=== PATIENT | female | born 1995 | race Caucasian/White ===

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

== ENCOUNTER → 2017-08-27 | Outpatient (CLI) | payer MEDICAID ==
[2017-08-27 20:05] LABS: BASO # 0.1 10^3/uL (0.0-0.2); BASO % 0.5 % (0.0-1.0); EOS # 0.1 10^3/uL (0.0-0.50); EOS % 1.4 % (0.0-3.0); HEMATOCRIT 42.7 % (36.0-47.0); HEMOGLOBIN 14.5 g/dl (12.0-16.0); IMMATURE GRANULOCYTE % 0.2 % (0-3.0); LYMPH # 3.5 10^3/uL (1.5-6.5); LYMPH % 36.4 % (24.0-44.0); MEAN CORPUSCULAR HEMOGLOBIN 31.7 pg (27.0-33.0); MEAN CORPUSCULAR VOLUME 93.4 fl (80.0-96.0); MONO # 0.7 10^3/uL (0.0-0.8); MONO % 7.3 % (0.0-5.0); NEUTROPHILS # 5.2 10^3/uL (1.8-7.7); NEUTROPHILS % 54.2 % (36.0-66.0); PLATELET COUNT, AUTOMATED 249 10^3/uL (150-450); RED BLOOD COUNT 4.57 10^6/uL (4.00-5.40); RED CELL DISTRIBUTION WIDTH 12.2 % (11.5-14.5); WHITE BLOOD COUNT 9.6 10^3/uL (4.0-10.0)
[2017-08-27 20:37] LABS: ALBUMIN 4.2 GM/DL (3.2-5.2); ALBUMIN/GLOBULIN RATIO 1.31 (1.00-1.93); ALKALINE PHOSPHATASE 99 U/L (45-117); ALT/SGPT 19 U/L (12-78); ANION GAP 11 MEQ/L (8-16); AST/SGOT 17 U/L (7-37); BILIRUBIN,TOTAL 0.3 MG/DL (0.2-1.0); BLOOD UREA NITROGEN 8 MG/DL (7-18); CALCIUM LEVEL 9.4 MG/DL (8.5-10.1); CARBON DIOXIDE LEVEL 25 MEQ/L (21-32); CHLORIDE LEVEL 108 MEQ/L (98-107); CREATININE FOR GFR 0.68 MG/DL (0.55-1.30); FREE T4 0.92 NG/DL (0.78-1.33); GLUCOSE, FASTING 75 MG/DL (70-100); POTASSIUM SERUM 3.7 MEQ/L (3.5-5.1); SODIUM LEVEL 144 MEQ/L (136-145); TOTAL PROTEIN 7.4 GM/DL (6.4-8.2)
== END ==
LOC: M WUC 16:27
DX: G40.89 Other seizures (principal); R45.6 Violent behavior; F90.0 Attention-deficit hyperactivity disorder, predominantly inattentive type
CPT/HCPCS: 84443

== ENCOUNTER 2019-08-04 20:23 | Emergency (ER) | payer MEDICAID ==
[~2019-08-04] VITALS: Ht 149.9 cm; Wt 77.3 kg
[2019-08-04] MEDS ORDERED: ZYRTTAB8 PO (20:32)
[2019-08-04] MEDS ORDERED: ONFI20TA PO (20:32)
[2019-08-04] MEDS ORDERED: RISP2TAB32 PO (20:32)
[2019-08-04] MEDS ORDERED: [UNRECOGNIZED DRUG - OTHER] (20:32)
[2019-08-04] MEDS ORDERED: AMET1TAB3 PO (20:32)
[2019-08-04] MEDS ORDERED: METF500T13 PO (20:32)
[2019-08-04] MEDS ORDERED: SEASTAB PO (20:32)
[2019-08-04] MEDS ORDERED: ADDE25CA PO (20:32)
[2019-08-04] MEDS ORDERED: MELA5CAP2 PO (20:32)
[2019-08-04] MEDS ORDERED: MM S100C PO (20:32)
[2019-08-04] MEDS ORDERED: ZOLO25TA PO (20:32)
[2019-08-04 21:02] LABS: URINE PREG TEST NEGATIVE (NEGATIVE)
[2019-08-04 21:04] LABS: APPEARANCE, URINE HAZY (CLEAR); BACTERIA, URINE AUTO 1+ (NEGATIVE); BILIRUBIN, URINE AUTO NEGATIVE (NEGATIVE); BLOOD, URINE BLOOD 2+ (NEGATIVE); COLOR, URINE YELLOW (YELLOW); GLUCOSE, URINE (UA) AUTO NEGATIVE (NEGATIVE); KETONE, URINE AUTO NEGATIVE (NEGATIVE); LEUKOCYTE ESTERASE, URINE AUTO NEGATIVE (NEGATIVE); MUCUS, URINE SMALL (NEGATIVE); NITRITE, URINE AUTO NEGATIVE (NEGATIVE); PROTEIN, URINE AUTO NEGATIVE (NEGATIVE); RBC, URINE AUTO 1 /HPF (0-3); SPECIFIC GRAVITY URINE AUTO 1.017 (1.002-1.035); SQUAMOUS EPITHELIAL CELL UR AU 1 /HPF (0-6); UROBILINOGEN, URINE AUTO 0.2 mg/dL (0.0-2.0); WBC, URINE AUTO 4 /HPF (0-3)
[2019-08-04 21:17] LABS: INFLUENZA A AMPLIFICATION NEGATIVE (NEGATIVE); INFLUENZA B AMPLIFICATION NEGATIVE (NEGATIVE)
[2019-08-04 22:35] LABS: BASO % 0.4 % (0.0-1.0); EOS # 0.2 10^3/uL (0.0-0.5); EOS % 1.9 % (0.0-3.0); HEMATOCRIT 40.3 % (36.0-47.0); HEMOGLOBIN 13.8 g/dl (12.0-15.5); LYMPH # 3.5 10^3/uL (1.5-5.0); LYMPH % 37.6 % (24.0-44.0); MEAN CORPUSCULAR HEMOGLOBIN 31.7 pg (27.0-33.0); MEAN CORPUSCULAR HGB CONC 34.2 g/dl (32.0-36.5); MEAN CORPUSCULAR VOLUME 92.6 fl (80.0-96.0); MONO # 0.7 10^3/uL (0.0-0.8); MONO % 7.3 % (0.0-5.0); NEUTROPHILS # 4.9 10^3/uL (1.5-8.5); NEUTROPHILS % 52.6 % (36.0-66.0); PLATELET COUNT, AUTOMATED 216 10^3/uL (150-450); RED BLOOD COUNT 4.35 10^6/uL (4.00-5.40); WHITE BLOOD COUNT 9.3 10^3/uL (4.0-10.0)
[2019-08-04 23:11] LABS: ALBUMIN 3.8 GM/DL (3.2-5.2); ALT/SGPT 19 U/L (12-78); BILIRUBIN,DIRECT < 0.1 MG/DL (0.0-0.2); BILIRUBIN,TOTAL 0.2 MG/DL (0.2-1.0); LIPASE 118 U/L (73-393); TOTAL PROTEIN 6.9 GM/DL (6.4-8.2)
[2019-08-05 00:04] VITALS: BP 110/66
--- NOTE | 2019-08-05 08:07 | REP ---
Supine abdomen single AP view: There are no comparisons. The bowel gas pattern is normal. There is abundant fecal residue in the ascending colon and transverse colon. There is minimal fecal residue in the descending colon and sigmoid colon. There is a fecal bolus in the rectal ampulla, possibly an impaction. Electronically Signed by Kane Fuentes MD 08/05/2019 07:58 A
== END 2019-08-05 00:06 | disposition home or self-care (01) ==
LOC: M ED 20:23
DX: K59.00 Constipation, unspecified (principal); R14.1 Gas pain; G40.909 Epilepsy, unspecified, not intractable, without status epilepticus; D68.0 Von Willebrand disease; Z79.899 Other long term (current) drug therapy; Z79.84 Long term (current) use of oral hypoglycemic drugs; Z79.3 Long term (current) use of hormonal contraceptives

== ENCOUNTER 2019-08-12 14:42 | Emergency (ER) | payer MEDICAID ==
[~2019-08-12] VITALS: Ht 149.9 cm; Wt 76.8 kg
[~2019-08-12 14:42] MED LIST: ADDE25CA PO; AMET1TAB3 PO; MELA5CAP2 PO; METF500T13 PO; MM S100C PO; ONFI20TA PO; RISP2TAB32 PO; SEASTAB PO; ZOLO25TA PO; ZYRTTAB8 PO; [UNRECOGNIZED DRUG - OTHER]
[2019-08-12] MEDS ORDERED: DIVA250T67 (15:01)
[2019-08-12] MEDS ORDERED: QUET100T2 (15:01)
[2019-08-12] MEDS ORDERED: QUET200T2 (15:01)
[2019-08-12 15:43] LABS: HEMATOCRIT 43.8 % (36.0-47.0); HEMOGLOBIN 14.9 g/dl (12.0-15.5); MEAN CORPUSCULAR HEMOGLOBIN 32.1 pg (27.0-33.0); MEAN CORPUSCULAR VOLUME 94.4 fl (80.0-96.0); PLATELET COUNT, AUTOMATED 226 10^3/uL (150-450); RED BLOOD COUNT 4.64 10^6/uL (4.00-5.40); WHITE BLOOD COUNT 6.9 10^3/uL (4.0-10.0)
[2019-08-12 16:11] LABS: AMPHETAMINES LEVEL URINE POSITIVE (NEGATIVE); BARBITURATES URINE NEGATIVE (NEGATIVE); BENZODIAZEPINES URINE POSITIVE (NEGATIVE); CANNABINOIDS URINE NEGATIVE (NEGATIVE); COCAINE METABOLITE URINE NEGATIVE (NEGATIVE); METHADONE URINE NEGATIVE (NEGATIVE); OPIATES URINE NEGATIVE (NEGATIVE); PHENCYCLIDINE URINE NEGATIVE (NEGATIVE)
[2019-08-12 16:13] LABS: HCG, SERUM QUALITATIVE NEGATIVE (NEGATIVE)
[2019-08-12 16:22] LABS: ACETAMINOPHEN LEVEL < 2.0 UG/ML (10.0-30.0); ALT/SGPT 21 U/L (12-78); BILIRUBIN,DIRECT 0.1 MG/DL (0.0-0.2); BILIRUBIN,TOTAL 0.2 MG/DL (0.2-1.0); BLOOD UREA NITROGEN 13 MG/DL (7-18); CALCIUM LEVEL 9.1 MG/DL (8.5-10.1); CARBON DIOXIDE LEVEL 29 MEQ/L (21-32); CHLORIDE LEVEL 107 MEQ/L (98-107); CREATININE FOR GFR 0.74 MG/DL (0.55-1.30); ETHYL ALCOHOL (ETHANOL) < 0.003 % (0.000-0.010); GLOMERULAR FILTRATION RATE > 60.0 (>60); GLUCOSE, FASTING 85 MG/DL (70-100); SALICYLATE LEVEL < 1.7 MG/DL (5.0-30.0); SODIUM LEVEL 143 MEQ/L (136-145); THYROID STIMULATING HORMONE 0.966 uIU/ML (0.358-3.740); TOTAL PROTEIN 7.2 GM/DL (6.4-8.2)
[2019-08-12 17:55] VITALS: BP 118/71
== END 2019-08-12 17:56 | disposition home or self-care (01) ==
LOC: M ED 14:42
DX: F91.9 Conduct disorder, unspecified (principal); G40.909 Epilepsy, unspecified, not intractable, without status epilepticus; F91.3 Oppositional defiant disorder; F90.9 Attention-deficit hyperactivity disorder, unspecified type; D68.0 Von Willebrand disease; Z79.84 Long term (current) use of oral hypoglycemic drugs; Z79.899 Other long term (current) drug therapy
CPT/HCPCS: 36415; 80048; 80076; 80307; 84443; 84703; 85027; 99284; G0480

== ENCOUNTER 2020-07-20 15:33 | Emergency (ER) | payer MEDICAID ==
[~2020-07-20] VITALS: Ht 152.4 cm; Wt 73.6 kg
[~2020-07-20 15:33] MED LIST changes: +DIVA250T67; +QUET100T2; +QUET200T2
--- OUTSIDE RECORDS SUMMARY | 2020-07-20 16:39 | CCD ---
Author Author [facility] Organization [facility] Address Unknown Phone Unavailable Care Team Providers Care [place] Mason Name Role Phone Barraclough, Ava PA Unavailable Unavailable Barraclough, Ava PA Unavailable Unavailable Barraclough, Ava PA Unavailable Unavailable Barraclough, Ava PA Unavailable Unavailable Barraclough, Ava PA Unavailable Unavailable Barraclough, Ava PA Unavailable Unavailable Alejandro DOAN MD Unavailable Unavailable Alejandro DOAN MD Unavailable Unavailable Alejandro DOAN MD Unavailable Unavailable Alejandro DOAN MD Unavailable Unavailable Alejandro DOAN MD Unavailable Unavailable Alejandro DOAN MD Unavailable Unavailable Alejandro DOAN MD Unavailable Unavailable Alejandro DOAN MD Unavailable Unavailable Alejandro DOAN MD Unavailable Unavailable Alejandro DOAN MD Unavailable Unavailable Alejandro DOAN MD Unavailable Unavailable Alejandro DOAN MD Unavailable Unavailable Alejandro DOAN MD Unavailable Unavailable Alejandro DOAN MD Unavailable Unavailable Alejandro DOAN MD Unavailable Unavailable Alejandro DOAN MD Unavailable Unavailable Alejandro DOAN MD Unavailable Unavailable Alejandro DOAN MD Unavailable Unavailable Alejandro DOAN MD Unavailable Unavailable Alejandro DOAN MD Unavailable Unavailable Alejandro DOAN MD Unavailable Unavailable Alejandro DOAN MD Unavailable Unavailable Alejandro DOAN MD Unavailable Unavailable Alejandro DOAN MD Unavailable Unavailable Alejandro DOAN MD Unavailable Unavailable Alejandro DOAN MD Unavailable Unavailable OLIMPIA, H SHASTA MD Unavailable Unavailable OLIMPIA, H SHASTA MD Unavailable Unavailable OLIMPIA, H SHASTA MD Unavailable Unavailable OLIMPIA, H SHASTA MD Unavailable Unavailable OLIMPIA, H SHASTA MD Unavailable Unavailable OLIMPIA, H SHASTA MD Unavailable Unavailable OLIMPIA, H SHASTA MD Unavailable Unavailable OLIMPIA, H SHASTA MD Unavailable Unavailable OLIMPIA, H SHASTA MD Unavailable Unavailable OLIMPIA, H SHASTA MD Unavailable Unavailable OLIMPIA, H SHASTA MD Unavailable Unavailable OLIMPIA, H SHASTA MD Unavailable Unavailable OLIMPIA, H SHASTA MD Unavailable Unavailable OLIMPIA, H SHASTA MD Unavailable Unavailable OLIMPIA, H SHASTA MD Unavailable Unavailable OLIMPIA, H SHASTA MD Unavailable Unavailable OLIMPIA, H SHASTA MD Unavailable Unavailable OLIMPIA, H SHASTA MD Unavailable Unavailable OLIMPIA, H SHASTA MD Unavailable Unavailable OLIMPIA, H SHASTA MD Unavailable Unavailable OLIMPIA, H SHASTA MD Unavailable Unavailable OLIMPIA, H SHASTA MD Unavailable Unavailable OLIMPIA, H SHASTA MD Unavailable Unavailable OLIMPIA, H SHASTA MD Unavailable Unavailable OLIMPIA, H SHASTA MD Unavailable Unavailable OLIMPIA, H SHASTA MD Unavailable Unavailable OLIMPIA, H SHASTA MD Unavailable Unavailable OLIMPIA, H SHASTA MD Unavailable Unavailable OLIMPIA, H SHASTA MD Unavailable Unavailable OLIMPIA, H SHASTA MD Unavailable Unavailable OLIMPIA, H SHASTA MD Unavailable Unavailable OLIMPIA, H SHASTA MD Unavailable Unavailable OLIMPIA, H SHASTA MD Unavailable Unavailable OLIMPIA, H SHASTA MD Unavailable Unavailable OLIMPIA, H SHASTA MD Unavailable Unavailable OLIMPIA, H SHASTA MD Unavailable Unavailable OLIMPIA, H SHASTA MD Unavailable Unavailable OLIMPIA, H SHASTA MD Unavailable Unavailable OLIMPIA, H SHASTA MD Unavailable Unavailable OLIMPIA, H SHASTA MD Unavailable Unavailable OLIMPIA, H SHASTA MD Unavailable Unavailable OLIMPIA, H SHASTA MD Unavailable Unavailable OLIMPIA, H HSASTA MD Unavailable Unavailable OLIMPIA, H SHASTA MD Unavailable Unavailable OLIMPIA, H SHASTA MD Unavailable Unavailable OLIMPIA, H SHASTA MD Unavailable Unavailable OLIMPIA, H SHASTA MD Unavailable Unavailable OLIMPIA, H SHASTA MD Unavailable Unavailable OLIMPIA, H SHASTA MD Unavailable Unavailable OLIMPIA, H SHASTA MD Unavailable Unavailable Dodard, Steve DO Unavailable Unavailable Dodard, Steve DO Unavailable Unavailable Dodard, Steve DO Unavailable Unavailable Dodard, Steve DO Unavailable Unavailable Dodard, Steve DO Unavailable Unavailable Dodard, Steve DO Unavailable Unavailable Dodard, Steve DO Unavailable Unavailable Dodard, Steve DO Unavailable Unavailable Dodard, Steve DO Unavailable Unavailable Dodard, Steve DO Unavailable Unavailable Dodard, Steve DO Unavailable Unavailable Dodard, Steve DO Unavailable Unavailable Dodard, Steve DO Unavailable Unavailable Dodard, Steve DO Unavailable Unavailable Dodard, Steve DO Unavailable Unavailable Dodard, Steve DO Unavailable Unavailable Dodard, Steve DO Unavailable Unavailable Dodard, Steve DO Unavailable Unavailable Dodard, Steve DO Unavailable Unavailable Dodard, Steve DO Unavailable Unavailable Dodard, Steve DO Unavailable Unavailable Dodard, Steve DO Unavailable Unavailable Dodard, Steve DO Unavailable Unavailable Dodard, Steve DO Unavailable Unavailable Dodard, Steve DO Unavailable Unavailable Dodard, Steve DO Unavailable Unavailable Dodard, Steve DO Unavailable Unavailable Dodard, Steve DO Unavailable Unavailable Dodard, Steve DO Unavailable Unavailable Dodard, Steve DO Unavailable Unavailable Dodard, Steve DO Unavailable Unavailable Dodard, Steve DO Unavailable Unavailable Dodard, Steve DO Unavailable Unavailable Dodard, Steve DO Unavailable Unavailable Dodard, Steve DO Unavailable Unavailable Dodard, Steve DO Unavailable Unavailable Dodard, Steve DO Unavailable Unavailable Dodard, Steve DO Unavailable Unavailable Dodard, Steve DO Unavailable Unavailable Dodard, Steve DO Unavailable Unavailable Dodard, Steve DO Unavailable Unavailable Dodard, Steve DO Unavailable Unavailable Dodard, Steve DO Unavailable Unavailable Dodard, Steve DO Unavailable Unavailable Re-disclosure Warning The records that you are about to access may contain information from federally-assisted alcohol or drug abuse programs. If such information is present, then the following federally mandated warning applies: This information has been disclosed to you from records protected by federal confidentiality rules (42 CFR part 2). The federal rules prohibit you from making any further disclosure of this information unless further disclosure is expressly permitted by the written consent of the person to whom it pertains or as otherwise permitted by 42 CFR part 2. A general authorization for the release of medical or other information is NOT sufficient for this purpose. The Federal rules restrict any use of the information to criminally investigate or prosecute any alcohol or drug abuse patient.The records that you are about to access may contain highly sensitive health information, the redisclosure of which is protected by Article 27-F of the [facility] Public Health law. If you continue you may have access to information: Regarding HIV / AIDS; Provided by facilities licensed or operated by the [facility] Office of Mental Health; or Provided by the [facility] Office for People With Developmental Disabilities. If such information is present, then the following [facility] mandated warning applies: This information has been disclosed to you from confidential records which are protected by state law. State law prohibits you from making any further disclosure of this information without the specific written consent of the person to whom it pertains, or as otherwise permitted by law. Any unauthorized further disclosure in violation of state law may result in a fine or correction sentence or both. A general authorization for the release of medical or other information is NOT sufficient authorization for further disc losure. Family History Family Member Name Family Member Gender Family Member Status Date o f Status Description Data Source(s) Unknown Unknown Problem [facility] ([facility] [place]) Encounters Encounter Providers Location Date Indications Data Source(s ) Outpatient Attender: SHASTA DOAN MD [facility] 03:20:00 PM EDT [facility] Outpatient Attender: SHASTA DOAN MD [facility] 01:15:00 PM EDT [facility] ([facility] Outpatient Referrer: Steve Lucio DO 08/11/2019 03:39:00 PM EST [facility] Outpatient Attender: Ava SILVER [facility] 06/17/2019 01:40:00 PM EST [facility] ([facility] Medications Medication Brand Name Start Date Product Form Dose Route Admi nistrative Instructions Pharmacy Instructions Status Indications Reaction Description Data Source(s) benzonatate 100 MG Oral Capsule [Tessalbro Ricks] Kristinsalon P lisandro 06/17/2019 12:00:00 AM EST completed [facility] ([facility] Insurance Providers Payer name Policy type / Coverage type Policy ID Covered libertarian ID Covered libertarian's relationship to dozier Policy Dozier Plan Information EMEDNY [id number] SP [id number] MEDICAID [id number] SP [id number] MEDICAID M [id number] S [id number] Medicaid Medicaid [id number] Self [id number] Medicaid Medicaid [id number] Self [id number] Medicaid-Pcap Medicaid [id number] Family Dependent [id number] Medicaid-Pcap Medicaid [id number] Family Dependent [id number] Medicaid-Pcap Medicaid [id number] Family Dependent [id number] Medicaid Medicaid [id number] Self [id number] Medicaid Medicaid [id number] Self [id number] Medicaid-Pcap Medicaid [id number] Family Dependent [id number] Medicaid-Pcap Medicaid [id number] Family Dependent Susana E End res [id number] Medicaid-Pcap Medicaid Family Dependent MEDICAID [id number] SP [id number] Medicaid Medicaid Self [id number] Results ID Date Data Source [id number] 08/12/2019 03:24:00 PM EST [facility] ([facility] Name Value Range Interpretation Code Description Data Magdalena rce(s) Supporting Document(s) Salicylates [Mass/volume] in Serum or Plasma < 1.7 mg/dL 5.0 -30.0 Below low normal [facility] ([facility] ) Acetaminophen [Mass/volume] in Serum or Plasma < 2.0 UG/ML 1 0.0-30.0 Below low normal [facility] ([facility] ) Ethanol [Mass/volume] in Serum or Plasma < 0.003 % 0.000-0 .010 Normal (applies to non-numeric results) [facility] ([facility] Thyrotropin [Units/volume] in Serum or Plasma 0.966 uIU/ML 0. 358-3.740 Normal (applies to non-numeric results) [facility] Choriogonadotropin.beta subunit ( test) [Pres ence] in Serum or Plasma NEGATIVE Normal (applies to non-numeric results) [facility] ID Date Data Source [id number] 08/12/2019 03:24:00 PM EST [facility] ([facility] Name Value Range Interpretation Code Description Data Magdalena rce(s) Supporting Document(s) Glucose, Fasting 85 mg/dL 70-100 Normal (applies to non-numeric results) [facility] ([facility] Blood Urea Nitrogen 13 mg/dL 7-18 Normal (applies to non-nume stefani results) [facility] ([facility] Glomerular Filtration Rate > 60.0 Normal (applies to n on-numeric results) [facility] ([facility] <content>Units are mL/min/1.73 m2</content>
<content></content>
<content>Chronic Kidney Disease Staging per NKF:</content>
<content></content>
<content>Stage I & II GFR >=60 Normal to Mildly Decreased</content>
<content>Stage III GFR 30- 59 Moderately Decreased</content>
<content>Stage IV GFR 15-29 Severely Decreased</content>
<content>Stage V GFR <15 Very Little GFR Left</content>
<content>ESRD GFR <15 on HEALTH ASSESSMENT AND TREATMENT TEACHER</content>
<content></content> Creatinine For GFR 0.74 mg/dL 0.55-1.30 Normal (applies to non -numeric results) [facility] ([facility] Sodium Level 143 meq/L 136-145 Normal (applies to non-numeric res ults) [facility] ([facility] Potassium Serum 4.0 meq/L 3.5-5.1 Normal (applies to non-numeric results) [facility] Chloride Level 107 meq/L 98-107 Normal (applies to non-numeric r esults) [facility] ([facility] Carbon Dioxide Level 29 meq/L 21-32 Normal (applies to non-num mike results) [facility] Anion Gap 7 meq/L 8-16 Below low normal [facility] Calcium Level 9.1 mg/dL 8.5-10.1 Normal (applies to non-numeric re sults) [facility] ([facility] ID Date Data Source [id number] 08/12/2019 03:24:00 PM EST [facility] ([facility] Name Value Range Interpretation Code Description Data Magdalena rce(s) Supporting Document(s) Alt/SGPT 21 U/L 12-78 Normal (applies to non-numeric resul ts) [facility] ([facility] Ast/Sgot 12 U/L 7-37 Normal (applies to non-numeric resul ts) [facility] ([facility] Alkaline Phosphatase 75 U/L 45-117 Normal (applies to non-num mike results) [facility] ([facility] Bilirubin,Total 0.2 mg/dL 0.2-1.0 Normal (applies to non-numeric results) [facility] ([facility] Total Protein 7.2 GM/DL 6.4-8.2 Normal (applies to non-numeric re sults) [facility] ([facility] Bilirubin,Direct 0.1 mg/dL 0.0-0.2 Normal (applies to non-numeric results) [facility] ([facility] Albumin 4.0 GM/DL 3.2-5.2 Normal (applies to non-numeric resul ts) [facility] ([facility] Albumin/Globulin Ratio 1.25 1.00-1.93 Normal (applies to non-numeric results) [facility] ([facility] [place] ID Date Data Source [id number] 08/12/2019 03:24:00 PM EST [facility] ([facility] Name Value Range Interpretation Code Description Data Magdalena rce(s) Supporting Document(s) Amphetamines Level Urine POSITIVE Above high normal [facility] ([facility] Barbiturates Urine NEGATIVE Normal (applies to non-numer ic results) [facility] ([facility] Benzodiazepines Urine POSITIVE Above high normal [facility] ([facility] Cocaine Metabolite Urine NEGATIVE Normal (applies to non -numeric results) [facility] ([facility] Cannabinoids Urine NEGATIVE Normal (applies to non-numer ic results) [facility] ([facility] [place] Methadone Urine NEGATIVE Normal (applies to non-numeric results) [facility] ([facility] Opiates Urine NEGATIVE Normal (applies to non-numeric re sults) [facility] ([facility] Phencyclidine Urine NEGATIVE Normal (applies to non-nume stefani results) [facility] ([facility] [place] ALL PRESUMPTIVE POSITIVE FINDINGS AR E UNCONFIRMED THRESHOLD IN NG/ML AMPHETAMINES/METHAMPHET 1000 BARBITURATES 200 BENZODIAZEPINES 200 CANNABINOIDS (THC) 50 COCAINE METABOLITE 300 METHADONE 300 OPIATES 300 PHENCYCLIDINE 25 RESULTS ARE FOR MEDICAL PURPOSES ONLY. ALL URINE SPECIMENS WILL BE SAVED FOR 3 DAYS. IF CONFIRMATION OF A PRESUMPTIVE POSITIVE SCREEN RESULT IS DESIRED, CALL CHEMISTRY ([phone]) AND REQUEST URINE TO BE SENT TO REFERENCE LAB. FOR A LIST OF CLOSELY RELATED COMPOUNDS PLEASE CALL THE LAB. ID Date Data Source [id number] 08/12/2019 03:24:00 PM EST [facility] Name Value Range Interpretation Code Description Data Magdalena rce(s) Supporting Document(s) White Blood Count 6.9 10 4.0-10.0 Normal (applies to non-numeri c results) [facility] ([facility] Hemoglobin 14.9 g/dL 12.0-15.5 Normal (applies to non-numeric resul ts) [facility] ([facility] Red Blood Count 4.64 10 4.00-5.40 Normal (applies to non-numeric results) [facility] ([facility] Mean Corpuscular Volume 94.4 fl 80.0-96.0 Normal ( applies to non-numeric results) [facility] ([facility] Hematocrit 43.8 % 36.0-47.0 Normal (applies to non-numeric resul ts) [facility] ([facility] Mean Corpuscular Hemoglobin 32.1 pg 27.0-33.0 Norm al (applies to non-numeric results) [facility] ([facility] Red Cell Distribution Width 11.9 % 11.5-14.5 Norm al (applies to non-numeric results) [facility] ([facility] Mean Corpuscular HGB Conc 34.0 g/dL 32.0-36.5 Normal (applies to non-numeric results) [facility] ([facility] Nucleated Red Blood Cell % 0.0 % 0-0 Normal (applies to n on-numeric results) [facility] ([facility] Platelet Count, Automated 226 10 150-450 Normal (applies to non-numeric results) [facility] ([facility] ID Date Data Source [id number] 08/04/2019 10:30:00 PM EST [facility] Name Value Range Interpretation Code Description Data Magdalena rce(s) Supporting Document(s) Laboratory test finding (navigational concept) < 5.0 Normal (applies to non- numeric results) [facility] ([facility] [place] <content>QUANTITATIVE RESULT QU ALITATIVE INTERPRETATION</content>
<content> </content>
<content><5.0 IU/L NEGATIVE</content>
<content>5.0 - 25.0 IU/L INDETERMINATE</content>
<content>>25.0 IU/L POSITIVE</content>
<content></content> ID Date Data Source [id number] 08/04/2019 10:28:00 PM EST [facility] ([facility] Name Value Range Interpretation Code Description Data Magdalena rce(s) Supporting Document(s) Laboratory test finding (navigational concept) 98 mg/dL 7 0-105 Normal (applies to non-numeric results) [facility] ([facility] Laboratory test finding (navigational concept) 40.0 % 3 8.0-51.0 Normal (applies to non-numeric results) [facility] ([facility] Laboratory test finding (navigational concept) 139 meq/L 1 36-145 Normal (applies to non-numeric results) [facility] ([facility] [place] Laboratory test finding (navigational concept) 103 meq/L 9 8-109 Normal (applies to non-numeric results) [facility] ([facility] Laboratory test finding (navigational concept) 4.8 mg/dL 4 .5-5.3 Normal (applies to non-numeric results) [facility] ([facility] Laboratory test finding (navigational concept) 3.6 meq/L 3 .5-5.1 Normal (applies to non-numeric results) [facility] ([facility] Laboratory test finding (navigational concept) 26.0 MM/L 2 3.0-27.0 Normal (applies to non-numeric results) [facility] ([facility] Laboratory test finding (navigational concept) 0.5 mg/dL 0 .6-1.3 Below low normal [facility] ([facility] Laboratory test finding (navigational concept) 9 mg/dL 8 -26 Normal (applies to non-numeric results) [facility] ([facility]) ID Date Data Source [id number] 08/04/2019 10:27:00 PM EST [facility] ([facility] Name Value Range Interpretation Code Description Data Magdalena rce(s) Supporting Document(s) Lipoprotein lipase [Enzymatic activity/volume] in Serum or P lasma 118 U/L 73-393 Normal (applies to non-numeric results) [facility] ([facility] ID Date Data Source [id number] 08/04/2019 10:27:00 PM EST [facility] ([facility] Name Value Range Interpretation Code Description Data Magdalena rce(s) Supporting Document(s) Alt/SGPT 19 U/L 12-78 Normal (applies to non-numeric resul ts) [facility] ([facility] Ast/Sgot 14 U/L 7-37 Normal (applies to non-numeric resul ts) [facility] ([facility] Alkaline Phosphatase 75 U/L 45-117 Normal (applies to non-num mike results) [facility] ([facility] Bilirubin,Total 0.2 mg/dL 0.2-1.0 Normal (applies to non-numeric results) [facility] ([facility] Bilirubin,Direct < 0.1 mg/dL 0.0-0.2 Normal (applies to non-numeri c results) [facility] ([facility] Total Protein 6.9 GM/DL 6.4-8.2 Normal (applies to non-numeric re sults) [facility] ([facility] Albumin 3.8 GM/DL 3.2-5.2 Normal (applies to non-numeric resul ts) [facility] ([facility] Albumin/Globulin Ratio 1.23 1.00-1.93 Normal (applies to non-numeric results) [facility] ([facility] ID Date Data Source [id number] 08/04/2019 10:27:00 PM EST [facility] ([facility] Name Value Range Interpretation Code Description Data Magdalena rce(s) Supporting Document(s) White Blood Count 9.3 10 4.0-10.0 Normal (applies to non-numeri c results) [facility] ([facility] Red Blood Count 4.35 10 4.00-5.40 Normal (applies to non-numeric results) [facility] ([facility] Mean Corpuscular Volume 92.6 fl 80.0-96.0 Normal ( applies to non-numeric results) [facility] ([facility] Hemoglobin 13.8 g/dL 12.0-15.5 Normal (applies to non-numeric resul ts) [facility] ([facility] Hematocrit 40.3 % 36.0-47.0 Normal (applies to non-numeric resul ts) [facility] ([facility] Red Cell Distribution Width 11.9 % 11.5-14.5 Norm al (applies to non-numeric results) [facility] ([facility] Mean Corpuscular HGB Conc 34.2 g/dL 32.0-36.5 Normal (applies to non-numeric results) [facility] ([facility] Mean Corpuscular Hemoglobin 31.7 pg 27.0-33.0 Norm al (applies to non-numeric results) [facility] ([facility] Neutrophils % 52.6 % 36.0-66.0 Normal (applies to non-numeric re sults) [facility] ([facility] Platelet Count, Automated 216 10 150-450 Normal (applies to non-numeric results) [facility] ([facility] Lymph % 37.6 % 24.0-44.0 Normal (applies to non-numeric resul ts) [facility] ([facility] Eos % 1.9 % 0.0-3.0 Normal (applies to non-numeric resul ts) [facility] ([facility] Foster % 7.3 % 0.0-5.0 Above high normal [facility] ([facility] Baso % 0.4 % 0.0-1.0 Normal (applies to non-numeric resul ts) [facility] ([facility] Immature Granulocyte % 0.2 % 0-3.0 Normal (applies to non-n umeric results) [facility] ([facility] Neutrophils # 4.9 10 1.5-8.5 Normal (applies to non-numeric re sults) [facility] ([facility] Lymph # 3.5 10 1.5-5.0 Normal (applies to non-numeric resul ts) [facility] ([facility] Nucleated Red Blood Cell % 0.0 % 0-0 Normal (applies to n on-numeric results) [facility] ([facility] Foster # 0.7 10 0.0-0.8 Normal (applies to non-numeric resul ts) [facility] ([facility] Eos # 0.2 10 0.0-0.5 Normal (applies to non-numeric resul ts) [facility] ([facility] Baso # 0.0 10 0.0-0.2 Normal (applies to non-numeric resul ts) [facility] ([facility] ID Date Data Source [id number] 08/04/2019 08:41:00 PM EST [facility] ([facility] Name Value Range Interpretation Code Description Data Magdalena rce(s) Supporting Document(s) Appearance, Urine HAZY Normal (applies to non-numeri c results) [facility] ([facility] Color, Urine YELLOW Normal (applies to non-numeric res ults) [facility] ([facility] Specific [place] Urine Auto 1.017 1.002-1.035 Norm al (applies to non-numeric results) [facility] ([facility] PH,Urine 6.0 units 5.0-9.0 Normal (applies to non-numeric resul ts) [facility] ([facility] Protein, Urine Auto NEGATIVE mg/dL Normal (applies to non- numeric results) [facility] ([facility] Glucose, Urine (Ua) Auto NEGATIVE mg/dL Normal (applies to non-numeric results) [facility] ([facility] Ketone, Urine Auto NEGATIVE mg/dL Normal (applies to non-n umeric results) [facility] ([facility] Urobilinogen, Urine Auto 0.2 mg/dL 0.0-2.0 Normal (applies to non-numeric results) [facility] ([facility] Bilirubin, Urine Auto NEGATIVE Normal (applies to non-nu meric results) [facility] ([facility] Leukocyte Esterase, Urine Auto NEGATIVE N ormal (applies to non-numeric results) [facility] ([facility] ) Nitrite, Urine Auto NEGATIVE Normal (applies to non-nume stefani results) [facility] ([facility] Blood, Urine Blood 2+ Above high normal [facility] ([facility] RBC, Urine Auto 1 /HPF 0-3 Normal (applies to non-numeric results) [facility] ([facility] WBC, Urine Auto 4 /HPF 0-3 Above high normal ME DENT ([facility] Bacteria, Urine Auto 1+ Above high normal [facility] ([facility] Squamous Epithelial Cell Ur AU 1 /HPF 0-6 N ormal (applies to non-numeric results) [facility] ([facility] ) Mucus, Urine SMALL Normal (applies to non-numeric res ults) [facility] ([facility] Hyaline Cast, Urine Auto 0 /LPF 0-1 Normal (applies to non -numeric results) [facility] ([facility] ID Date Data Source [id number] 08/04/2019 08:41:00 PM EST [facility] ([facility] Name Value Range Interpretation Code Description Data Magdalena rce(s) Supporting Document(s) Choriogonadotropin.beta subunit ( test) [Presence] in U rine NEGATIVE Normal (applies to non-numeric results) [facility] ([facility] ID Date Data Source [id number] 08/04/2019 08:36:00 PM EST [facility] ([facility] Name Value Range Interpretation Code Description Data Magdalena rce(s) Supporting Document(s) Influenza A Amplification NEGATIVE Normal (applies to no n-numeric results) [facility] ([facility] Negative results do not preclude influen za or RSV virus infection and should not be used as the sole basis for treatment or other patient management decisions. Influenza B Amplification NEGATIVE Normal (applies to no n-numeric results) [facility] ([facility] Negative results do not preclude influen za or RSV virus infection and should not be used as the sole basis for treatment or other patient management decisions. ID Date Data Source [id number] 06/17/2019 03:45:00 PM EST [facility] ([facility] Name Value Range Interpretation Code Description Data Magdalena rce(s) Supporting Document(s) Erythrocytes [#/volume] in Blood by Automated count 4.45 x10E6/uL 3.7 7-5.28 [facility] ([facility] Leukocytes [#/volume] in Blood by Automated count 8.1 x10E3/uL 3.4-10 .8 [facility] ([facility] Hemoglobin [Mass/volume] in Blood 14.2 g/dL 11.1-15.9 [facility] ([facility] Erythrocyte mean corpuscular volume [Entitic volume] by Auto mated count 94 fL 79-97 [facility] ([facility] Erythrocyte mean corpuscular hemoglobin [Entitic mass] by Automated count 31.9 pg 26.6-33.0 [facility] ([facility] Hematocrit [Volume Fraction] of Blood by Automated count 41.7 % 3 4.0-46.6 [facility] ([facility] Erythrocyte distribution width [Ratio] by Automated count 12.6 % 11.7-15.4 [facility] ([facility] Please note reference interval change* * Erythrocyte mean corpuscular hemoglobin concentration [Mass/volume] by Automated count 34.1 g/dL 31.5-35.7 [facility] ([facility] Neutrophils 64 % [facility] Platelets [#/volume] in Blood by Automated count 221 x10E3/uL 150-450 [facility] ([facility] Monocytes/100 leukocytes in Blood by Automated count 9 % [facility] ([facility] Lymphs 25 % [facility] ([facility] Eosinophils/100 leukocytes in Blood by Automated count 2 % [facility] ([facility] Basophils/100 leukocytes in Blood by Automated count 0 % [facility] ([facility] Neutrophils [#/volume] in Blood by Automated count 5.1 x10E3/uL 1.4-7 .0 [facility] ([facility] Immature cells [#/volume] in Blood TNP [facility] ([facility] Eosinophils [#/volume] in Blood by Automated count 0.2 x10E3/uL 0.0-0 .4 [facility] ([facility] Lymphocytes [#/volume] in Blood 2.0 x10E3/uL 0.7-3.1 [facility] ([facility] Monocytes [#/volume] in Blood 0.8 x10E3/uL 0.1-0.9 [facility] ([facility] Basophils [#/volume] in Blood by Automated count 0.0 x10E3/uL 0.0-0.2 [facility] ([facility] Immature granulocytes/100 leukocytes in Blood by Automated count 0 % [facility] ([facility] Morphology [Interpretation] in Blood Narrative TNP [facility] ([facility] Immature granulocytes [#/volume] in Blood by Automated count 0.0 x10E3/uL 0.0-0.1 [facility] ([facility] Nucleated erythrocytes/100 leukocytes [Ratio] in Blood by Automa boogie count TNP [facility] ([facility] ) Procedure Vital Signs ID Date Data Source [id number] Name Value Range Interpretation Code Description Data Source(s) Oxygen saturation in Arterial blood by Pulse oximetry 97 % 97 % [facility] ([facility] Body mass index (BMI) [Ratio] 31.8 kg/m2 31.8 k g/m2 [facility] ([facility] [place] body weight 100 [lb_av] 100 [lb_av] MEDEN T ([facility] Body weight 160.00 [lb_av] 160.00 [lb_av] MEDEN T ([facility] Body height 59.50 [in_i] 59.50 [in_i] [facility] ([facility] 4'11.50" Respiratory rate 16 /min 16 /min [facility] ( [facility] Heart rate 90 /min 90 /min [facility] ([facility] Body temperature 98.6 [degF] 98.6 [degF] [facility] ([facility] Diastolic blood pressure 66 mm[Hg] 66 mm[Hg] [facility] ([facility] Systolic blood pressure 108 mm[Hg] 108 mm[Hg] M EDENT ([facility] Oxygen saturation in Arterial blood by Pulse oximetry 98 % 98 % [facility] ([facility] Body mass index (BMI) [Ratio] 32.8 kg/m2 32.8 k g/m2 [facility] ([facility] [place] body weight 100 [lb_av] 100 [lb_av] MEDEN T ([facility] Body weight 165.00 [lb_av] 165.00 [lb_av] MEDEN T ([facility] Body height 59.50 [in_i] 59.50 [in_i] [facility] ([facility] 4'11.50" Respiratory rate 14 /min 14 /min [facility] ( [facility] Heart rate 112 /min 112 /min [facility] ([facility] Body temperature 98.4 [degF] 98.4 [degF] [facility] ([facility] Diastolic blood pressure 54 mm[Hg] 54 mm[Hg] [facility] ([facility] Systolic blood pressure 102 mm[Hg] 102 mm[Hg] M EDENT ([facility] Body temperature 98.7 [degF] 98.7 [degF] MEDSAMANTHA ([facility] Diastolic blood pressure 56 mm[Hg] 56 mm[Hg] MEDSAMANTHA ([facility] Systolic blood pressure 98 mm[Hg] 98 mm[Hg] M KAYE ([facility] Oxygen saturation in Arterial blood by Pulse oximetry 97 % 97 % NILES ([facility] Body mass index (BMI) [Ratio] 33.6 kg/m2 33.6 k g/m2 [facility] ([facility] Body weight 169.00 [lb_av] 169.00 [lb_av] ALEXEN T ([facility] Body height 59.50 [in_i] 59.50 [in_i] MEDSAMANTHA ([facility] 4'11.50" Respiratory rate 16 /min 16 /min MEDSAMANTHA ( [facility] Heart rate 100 /min 100 /min NILES ([facility]
--- OUTSIDE RECORDS SUMMARY | 2020-07-20 16:46 | CCD ---
Author Author [facility] Organization [facility] Address Unknown Phone Unavailable Care Team Providers Care Screw Machine Hand Name Role Phone Barraclough, Ava PA Unavailable [...] H SHASTA MD Unavailable Unavailable OLIMPIA, H SHASAT MD Unavailable Unavailable OLIMPIA, H SHASTA MD [...] is protected by Article 27-F of the [facility] Public Health law. If you continue you may have access to information: Regarding HIV / AIDS; Provided by facilities licensed or operated by the [facility] Office of Mental Health; or Provided by the [facility] Office for People With Developmental Disabilities. If such information is present, then the following [facility] mandated warning applies: This information has been [...] law may result in a fine or longterm sentence or both. A general authorization for the release of medical or other information is NOT sufficient authorization for further disc losure. Family History Family Member Name Family Member Gender Family Member Status Date o f Status Description Data Source(s) Unknown Unknown Problem [facility] ([facility]) Encounters Encounter Providers Location Date Indications Data Source(s ) Outpatient Attender: SHASTA DOAN MD [facility] 03:20:00 PM EDT [facility] Outpatient Attender: SHASTA DOAN MD [facility] 01:15:00 PM EDT [facility] ([facility] Outpatient Referrer: Steve Lucio DO 08/11/2019 03:39:00 PM EST [facility] Outpatient Attender: Ava SILVER [facility] 06/17/2019 01:40:00 PM EST [facility] ([facility] Medications Medication Brand Name Start Date Product Form Dose Route Admi nistrative Instructions Pharmacy Instructions Status Indications Reaction Description Data Source(s) benzonatate 100 MG Oral Capsule [Tessalbro Ricks] Kristinsalon P lisandro 06/17/2019 12:00:00 AM EST completed [facility] ([facility] Insurance Providers Payer name Policy type / Coverage type Policy ID Covered libertarian ID Covered libertarian's relationship to dozier Policy Dozier Plan Information EMEDNY [id number] SP [id number] MEDICAID [id number] SP [id number] MEDICAID M [id number] S [id number] Medicaid Medicaid [id number] Self [id number] Medicaid Medicaid [id number] Self [id number] Medicaid-Pcap Medicaid [id number] Family Dependent [id number] Medicaid-Pcap Medicaid [id number] Family Dependent [id number] Medicaid-Pcap Medicaid [id number] Family Dependent [id number] Medicaid Medicaid [id number] Self [id number] Medicaid Medicaid [id number] Self [id number] Medicaid-Pcap Medicaid [id number] Family Dependent [id number] Medicaid-Pcap Medicaid [id number] Family Dependent Susana E End res [id number] Medicaid-Pcap Medicaid Family Dependent MEDICAID [id number] SP [id number] Medicaid Medicaid Self [id number] Results ID Date Data Source [id number] 08/12/2019 03:24:00 PM EST [facility] ([facility] Name Value Range Interpretation Code Description Data Magdalena rce(s) Supporting Document(s) Salicylates [Mass/volume] in Serum or Plasma < 1.7 mg/dL 5.0 -30.0 Below low normal [facility] ([facility] ) Acetaminophen [Mass/volume] in Serum or Plasma < 2.0 UG/ML 1 0.0-30.0 Below low normal [facility] ([facility] ) Ethanol [Mass/volume] in Serum or Plasma < 0.003 % 0.000-0 .010 Normal (applies to non-numeric results) [facility] ([facility] Thyrotropin [Units/volume] in Serum or Plasma 0.966 uIU/ML 0. 358-3.740 Normal (applies to non-numeric results) [facility] ([facility] Choriogonadotropin.beta subunit ( test) [Pres ence] in Serum or Plasma NEGATIVE Normal (applies to non-numeric results) [facility] ([facility] ID Date Data Source [id number] 08/12/2019 03:24:00 PM EST [facility] ([facility] [...] Little GFR Left</content>
<content>ESRD GFR <15 on CHEMICAL DETECTION EXPERT</content>
<content></content> Creatinine For GFR 0.74 mg/dL 0.55-1.30 Normal (applies to non -numeric results) [facility] ([facility] Sodium Level 143 meq/L 136-145 Normal (applies to non-numeric res ults) [facility] ([facility] Potassium Serum 4.0 meq/L 3.5-5.1 Normal (applies to non-numeric results) [facility] Chloride Level 107 meq/L 98-107 Normal (applies to non-numeric r esults) [facility] ([facility] Carbon Dioxide Level 29 meq/L 21-32 Normal (applies to non-num mike results) [facility] Anion Gap 7 meq/L 8-16 Below low normal [facility] Calcium Level 9.1 mg/dL 8.5-10.1 Normal (applies to non-numeric re sults) [facility] ([facility] ID Date Data Source [id number] 08/12/2019 03:24:00 PM EST [facility] ([facility] Name Value Range Interpretation Code Description Data Magdalena rce(s) Supporting Document(s) Alt/SGPT 21 U/L 12-78 Normal (applies to non-numeric resul ts) [facility] ([facility] Ast/Sgot 12 U/L 7-37 Normal (applies to non-numeric resul ts) [facility] ([facility] Alkaline Phosphatase 75 U/L 45-117 Normal (applies to non-num mike results) [facility] ([facility] Bilirubin,Total 0.2 mg/dL 0.2-1.0 Normal (applies to non-numeric results) [facility] ([facility] Total Protein 7.2 GM/DL 6.4-8.2 Normal (applies to non-numeric re sults) [facility] ([facility] Bilirubin,Direct 0.1 mg/dL 0.0-0.2 Normal (applies to non-numeric results) [facility] ([facility] Albumin 4.0 GM/DL 3.2-5.2 Normal (applies to non-numeric resul ts) [facility] ([facility] Albumin/Globulin Ratio 1.25 1.00-1.93 Normal (applies to non-numeric results) [facility] ([facility] ID Date Data Source [id number] 08/12/2019 03:24:00 PM EST [facility] ([facility] Name Value Range Interpretation Code Description Data Magdalena rce(s) Supporting Document(s) Amphetamines Level Urine POSITIVE Above high normal [facility] ([facility] Barbiturates Urine NEGATIVE Normal (applies to non-numer ic results) [facility] ([facility] Benzodiazepines Urine POSITIVE Above high normal [facility] ([facility] Cocaine Metabolite Urine NEGATIVE Normal (applies to non -numeric results) [facility] ([facility] Cannabinoids Urine NEGATIVE Normal (applies to non-numer ic results) [facility] ([facility] Methadone Urine NEGATIVE Normal (applies to non-numeric results) [facility] ([facility] Opiates Urine NEGATIVE Normal (applies to non-numeric re sults) [facility] ([facility] Phencyclidine Urine NEGATIVE Normal (applies to non-nume stefani results) [facility] ([facility] ALL PRESUMPTIVE POSITIVE FINDINGS AR E [...] CALL THE LAB. ID Date Data Source [id number] 08/12/2019 03:24:00 PM EST [facility] ([facility] ID Date Data Source [id number] 08/04/2019 10:30:00 PM EST [facility] Name Value Range Interpretation Code Description Data Magdalena rce(s) Supporting Document(s) Laboratory test finding (navigational concept) < 5.0 Normal (applies to non- numeric results) [facility] ([facility] ) <content>QUANTITATIVE RESULT QU ALITATIVE INTERPRETATION</content>
<content> </content>
<content><5.0 IU/L NEGATIVE</content>
<content>5.0 - 25.0 IU/L INDETERMINATE</content>
<content>>25.0 IU/L POSITIVE</content>
<content></content> ID Date Data Source [id number] 08/04/2019 10:28:00 PM EST [facility] ([facility] Name Value Range Interpretation Code Description Data Magdalena rce(s) Supporting Document(s) Laboratory test finding (navigational concept) 98 mg/dL 7 0-105 Normal (applies to non-numeric results) [facility] ([facility] Laboratory test finding (navigational concept) 40.0 % 3 8.0-51.0 Normal (applies to non-numeric results) [facility] ([facility] Laboratory test finding (navigational concept) 139 meq/L 1 36-145 Normal (applies to non-numeric results) [facility] ([facility] Laboratory test finding (navigational concept) 103 meq/L 9 8-109 Normal (applies to non-numeric results) [facility] ([facility] Laboratory test finding (navigational concept) 4.8 mg/dL 4 .5-5.3 Normal (applies to non-numeric results) [facility] ([facility] Laboratory test finding (navigational concept) 3.6 meq/L 3 .5-5.1 Normal (applies to non-numeric results) [facility] ([facility] Laboratory test finding (navigational concept) 26.0 MM/L 2 3.0-27.0 Normal (applies to non-numeric results) [facility] ([facility] Laboratory test finding (navigational concept) 0.5 mg/dL 0 .6-1.3 Below low normal [facility] ([facility] Laboratory test finding (navigational concept) 9 mg/dL 8 -26 Normal (applies to non-numeric results) [facility] ([facility]) ID Date Data Source [id number] 08/04/2019 10:27:00 PM EST [facility] Name Value Range Interpretation Code Description Data Magdalena rce(s) Supporting Document(s) Lipoprotein lipase [Enzymatic activity/volume] in Serum or P lasma 118 U/L 73-393 Normal (applies to non-numeric results) [facility] ([facility] ID Date Data Source [id number] 08/04/2019 10:27:00 PM EST [facility] Name Value Range Interpretation Code Description Data Magdalena rce(s) Supporting Document(s) Alt/SGPT 19 U/L 12-78 Normal (applies to non-numeric resul ts) [facility] ([facility] Ast/Sgot 14 U/L 7-37 Normal (applies to non-numeric resul ts) [facility] ([facility] Alkaline Phosphatase 75 U/L 45-117 Normal (applies to non-num mike results) [facility] ([facility] Bilirubin,Total 0.2 mg/dL [...] [facility] ID Date Data Source [id number] 08/04/2019 10:27:00 PM EST [facility] ([facility] Name Value Range Interpretation Code Description Data Magdalena rce(s) Supporting Document(s) White Blood Count 9.3 10 4.0-10.0 Normal (applies to non-numeri c results) [facility] ([facility] Red Blood Count [...] resul ts) [facility] ([facility] [place] % 7.3 % 0.0-5.0 Above high normal [facility] ([facility] Baso % 0.4 % 0.0-1.0 Normal (applies to non-numeric resul ts) [facility] ([facility] Immature Granulocyte % 0.2 % 0-3.0 Normal (applies to non-n umeric results) [facility] ([facility] Neutrophils # 4.9 10 1.5-8.5 Normal (applies to non-numeric re sults) [facility] ([facility] Lymph # 3.5 10 1.5-5.0 Normal (applies to non-numeric resul ts) [facility] ([facility] Nucleated Red Blood Cell % 0.0 % 0-0 Normal (applies to n on-numeric results) [facility] ([facility] [place] # 0.7 10 0.0-0.8 Normal (applies to non-numeric resul ts) [facility] ([facility] Eos # 0.2 10 0.0-0.5 Normal (applies to non-numeric resul ts) [facility] ([facility] Baso # 0.0 10 0.0-0.2 Normal (applies to non-numeric resul ts) [facility] ([facility] ID Date Data Source [id number] 08/04/2019 08:41:00 PM EST [facility] ([facility] Name Value Range Interpretation Code Description Data Magdalena rce(s) Supporting Document(s) Appearance, Urine HAZY Normal (applies to non-numeri c results) [facility] ([facility] Color, Urine YELLOW Normal (applies to non-numeric res ults) [facility] ([facility] Specific [place] Urine Auto 1.017 1.002-1.035 Norm al (applies to non-numeric results) [facility] ([facility] ) PH,Urine 6.0 units 5.0-9.0 Normal (applies to non-numeric resul ts) [facility] ([facility] Protein, Urine Auto NEGATIVE mg/dL Normal (applies to non- numeric results) [facility] ([facility] Glucose, Urine (Ua) Auto NEGATIVE mg/dL Normal (applies to non-numeric results) [facility] ([facility] ) Ketone, Urine Auto NEGATIVE mg/dL Normal (applies to non-n umeric results) [facility] ([facility] Urobilinogen, Urine Auto 0.2 mg/dL 0.0-2.0 Normal (applies to non-numeric results) [facility] ([facility] ) Bilirubin, Urine Auto NEGATIVE Normal (applies to non-nu meric results) [facility] ([facility] Leukocyte Esterase, Urine Auto NEGATIVE N ormal (applies to non-numeric results) [facility] ([facility] ) Nitrite, Urine Auto NEGATIVE Normal (applies to non-nume stefani results) [facility] ([facility] Blood, Urine Blood 2+ Above high normal [facility] ([facility] RBC, Urine Auto 1 /HPF 0-3 Normal (applies to non-numeric results) [facility] ([facility] WBC, Urine Auto 4 /HPF 0-3 Above high normal ME DENT ([facility] Bacteria, Urine Auto 1+ Above high normal [facility] ([facility] Squamous Epithelial Cell Ur AU 1 /HPF 0-6 N ormal (applies to non-numeric results) [facility] ([facility] ) Mucus, Urine SMALL Normal (applies to non-numeric res ults) [facility] ([facility] Hyaline Cast, Urine Auto 0 /LPF 0-1 Normal (applies to non -numeric results) [facility] ([facility] ID Date Data Source [id number] 08/04/2019 08:41:00 PM EST [facility] Name Value Range Interpretation Code Description Data Magdalena rce(s) Supporting Document(s) Choriogonadotropin.beta subunit ( test) [Presence] in U rine NEGATIVE Normal (applies to non-numeric results) [facility] ([facility] ID Date Data Source [id number] 08/04/2019 08:36:00 PM EST [facility] Name Value Range Interpretation Code Description Data Magdalena rce(s) Supporting Document(s) Influenza A Amplification NEGATIVE Normal (applies to no n-numeric results) [facility] ([facility] Negative results do not preclude influen za or RSV virus infection and should not be used as the sole basis for treatment or other patient management decisions. Influenza B Amplification NEGATIVE Normal (applies to no n-numeric results) [facility] ([facility] Negative results do not preclude influen za or RSV virus infection and should not be used as the sole basis for treatment or other patient management decisions. ID Date Data Source [id number] 06/17/2019 03:45:00 PM EST [facility] ([facility] Name Value Range Interpretation Code Description Data Magdalena rce(s) Supporting Document(s) Erythrocytes [#/volume] in Blood by Automated count 4.45 x10E6/uL 3.7 7-5.28 [facility] ([facility] Leukocytes [#/volume] in Blood by Automated count 8.1 x10E3/uL 3.4-10 .8 [facility] ([facility] Hemoglobin [Mass/volume] in Blood 14.2 g/dL 11.1-15.9 [facility] ([facility] Erythrocyte mean corpuscular volume [Entitic volume] by Auto mated count 94 fL 79-97 [facility] ([facility] Erythrocyte mean corpuscular hemoglobin [Entitic mass] by Automated count 31.9 pg 26.6-33.0 [facility] ([facility] Hematocrit [Volume Fraction] of Blood by Automated count 41.7 % 3 4.0-46.6 [facility] ([facility] Erythrocyte distribution width [Ratio] by Automated count 12.6 % 11.7-15.4 [facility] ([facility] Please note reference interval change* * Erythrocyte mean corpuscular hemoglobin concentration [Mass/volume] by Automated count 34.1 g/dL 31.5-35.7 [facility] ([facility] Neutrophils 64 % [facility] Platelets [#/volume] in Blood by Automated count 221 x10E3/uL 150-450 [facility] ([facility] Monocytes/100 leukocytes in Blood by Automated count 9 % [facility] ([facility] Lymphs 25 % [facility] ([facility] Eosinophils/100 leukocytes in Blood by Automated count 2 % [facility] ([facility] Basophils/100 leukocytes in Blood by Automated count 0 % [facility] ([facility] Neutrophils [#/volume] in Blood by Automated count 5.1 x10E3/uL 1.4-7 .0 [facility] ([facility] Immature cells [#/volume] [...] [Ratio] 31.8 kg/m2 31.8 k g/m2 [facility] ([facility] [place] body weight 100 [lb_av] 100 [lb_av] MEDEN T ([facility] Body weight 160.00 [lb_av] 160.00 [lb_av] MEDEN T ([facility] Body height 59.50 [in_i] 59.50 [in_i] [facility] ([facility] 4'11.50" Respiratory rate 16 /min 16 /min [facility] ( [facility] Heart rate 90 /min 90 /min [facility] ([facility] Body temperature 98.6 [degF] 98.6 [degF] [facility] ([facility] Diastolic blood pressure 66 mm[Hg] 66 mm[Hg] [facility] ([facility] Systolic blood pressure 108 mm[Hg] 108 mm[Hg] M EDENT ([facility] Oxygen saturation in Arterial blood by Pulse oximetry 98 % 98 % [facility] ([facility] Body mass index (BMI) [Ratio] 32.8 kg/m2 32.8 k g/m2 [facility] ([facility] Edna body weight 100 [lb_av] 100 [lb_av] MEDEN T ([facility] Body weight 165.00 [lb_av] 165.00 [lb_av] MEDEN T ([facility] Body height 59.50 [in_i] 59.50 [in_i] [facility] ([facility] 4'11.50" Respiratory rate 14 /min 14 /min [facility] ( [facility] Heart rate 112 /min 112 /min [facility] ([facility] Body temperature 98.4 [degF] 98.4 [degF] [facility] ([facility] Diastolic blood pressure 54 mm[Hg] 54 mm[Hg] [facility] ([facility] Systolic blood pressure 102 mm[Hg] 102 mm[Hg] M EDENT ([facility] Body temperature 98.7 [degF] 98.7 [degF] MEDSAMANTAH ([facility] Diastolic blood pressure 56 mm[Hg] 56 mm[Hg] MEDSAMANTHA ([facility] Systolic blood pressure 98 mm[Hg] 98 mm[Hg] M KAYE ([facility] Oxygen saturation in Arterial blood by Pulse oximetry 97 % 97 % NILES ([facility] Body mass index (BMI) [Ratio] 33.6 kg/m2 33.6 k g/m2 [facility] ([facility] Body weight 169.00 [lb_av] 169.00 [lb_av] ALEXEN T ([facility] Body height 59.50 [in_i] 59.50 [in_i] MEDSAMANTHA ([facility] 4'11.50" Respiratory rate 16 /min 16 /min MEDSAMANTHA ( [facility] Heart rate 100 /min 100 /min NILES ([facility]
[2020-07-20] MEDS ORDERED: NS 1,000 ML IV ONE (17:00)
[2020-07-20 18:01] LABS: RSV AMPLIFICATION NEGATIVE (NEGATIVE)
[2020-07-20 18:10] LABS: BASO % 0.4 % (0.0-1.0); EOS # 0.1 10^3/uL (0.0-0.5); EOS % 0.7 % (0.0-3.0); HEMATOCRIT 42.5 % (36.0-47.0); HEMOGLOBIN 14.5 g/dl (12.0-15.5); LYMPH # 2.7 10^3/uL (1.5-5.0); LYMPH % 28.2 % (24.0-44.0); MEAN CORPUSCULAR HEMOGLOBIN 32.6 pg (27.0-33.0); MEAN CORPUSCULAR HGB CONC 34.1 g/dl (32.0-36.5); MEAN CORPUSCULAR VOLUME 95.5 fl (80.0-96.0); MONO # 0.6 10^3/uL (0.0-0.8); MONO % 6.7 % (0.0-5.0); NEUTROPHILS % 63.7 % (36.0-66.0); PLATELET COUNT, AUTOMATED 215 10^3/uL (150-450); RED BLOOD COUNT 4.45 10^6/uL (4.00-5.40); WHITE BLOOD COUNT 9.4 10^3/uL (4.0-10.0)
[2020-07-20 18:36] LABS: ALT/SGPT 16 U/L (12-78); AMYLASE 47 U/L (25-115); BILIRUBIN,DIRECT 0.1 MG/DL (0.0-0.2); BILIRUBIN,TOTAL 0.3 MG/DL (0.2-1.0); BLOOD UREA NITROGEN 11 MG/DL (7-18); CALCIUM LEVEL 9.5 MG/DL (8.5-10.1); CARBON DIOXIDE LEVEL 30 MEQ/L (21-32); CHLORIDE LEVEL 106 MEQ/L (98-107); CK-MB VALUE MASS < 1.0 NG/ML (<3.6); CPK CREATINE PHOSPHOKINASE 80 U/L (26-192); CREATININE FOR GFR 0.72 MG/DL (0.55-1.30); GLOMERULAR FILTRATION RATE > 60.0 (>60); GLUCOSE, FASTING 78 MG/DL (70-100); LIPASE 108 U/L (73-393); MB/CK RELATIVE INDEX 1.25 (< OR =4); SODIUM LEVEL 142 MEQ/L (136-145); TOTAL PROTEIN 7.2 GM/DL (6.4-8.2); TROPONIN I < 0.02 NG/ML (< 0.10)
--- NOTE | 2020-07-20 19:57 | REP ---
INDICATION: Abdominal Pain COMPARISON: 08/04/2019 TECHNIQUE: Upright view of the chest with supine and upright views of the abdomen and pelvis. FINDINGS: Frontal upright view of the chest demonstrates no acute cardiopulmonary process or free air below the diaphragm to suspect pneumoperitoneum. Supine and upright views of the abdomen and pelvis demonstrate nonspecific bowel gas pattern without obstruction or perforation. No organomegaly. No abnormal calcifications. Skeletal structures demonstrate chronic scoliosis. IMPRESSION: Nonspecific bowel gas pattern. <Electronically signed by Ortiz Hutchins > 07/20/201953
[2020-07-20 22:00] VITALS: BP 112/75
--- NOTE | 2020-07-21 09:36 | ECGEPIP ---
[facility] - ED Test Date: 2020-07-20 Pat Name: CHUCK WU Department: Room: - Gender: Female Leather Lacer: VC : 1995 Requested By: REMA Bassett PA-C Order Number: [id number] Reading MD: Praneeth Gaines Measurements Intervals [place] Rate: 74 P: 19 ND: 116 QRS: -23 QRSD: 98 T: 8 QT: 382 QTc: 425 Interpretive Statements SINUS RHYTHM WITH SHORT ND INTERVAL BASELINE ARTIFACT AFFECTS INTERPRETATION NO PRIORS FOR COMPARISON Electronically Signed on 07-21-2020 9:35:59 EST by Praneeth Gaines
== END 2020-07-20 22:05 | disposition home or self-care (01) ==
LOC: M ED 15:33
DX: R10.84 Generalized abdominal pain (principal); J02.9 Acute pharyngitis, unspecified; G40.909 Epilepsy, unspecified, not intractable, without status epilepticus; D68.0 Von Willebrand disease; F42.9 Obsessive-compulsive disorder, unspecified; F91.3 Oppositional defiant disorder; F90.9 Attention-deficit hyperactivity disorder, unspecified type; Z79.899 Other long term (current) drug therapy

== ENCOUNTER 2020-11-02 09:15 | Emergency (ER) | payer MEDICAID ==
[~2020-11-02] VITALS: Ht 154.9 cm; Wt 73.2 kg
[2020-11-02] MEDS ORDERED: ZOLO100T (09:47)
[2020-11-02] MEDS ORDERED: BANZ400T (09:47)
[2020-11-02] MEDS ORDERED: CALCTAB89 PO (09:47)
[2020-11-02] MEDS ORDERED: MELA10CA PO (09:47)
[2020-11-02 12:30] VITALS: BP 106/64
[2020-11-02] MEDS ORDERED: BANZ400T PO (12:41)
== END 2020-11-02 12:55 | disposition home or self-care (01) ==
LOC: EDBD 09:15 → M ED 09:15
DX: G40.909 Epilepsy, unspecified, not intractable, without status epilepticus (principal); Z79.3 Long term (current) use of hormonal contraceptives; Z79.899 Other long term (current) drug therapy
CPT/HCPCS: 80210; 99284; G0480

== ENCOUNTER 2021-07-20 20:15 | Emergency (ER) | payer MEDICAID ==
[~2021-07-20] VITALS: Ht 152.4 cm; Wt 67.5 kg
[~2021-07-20 20:15] MED LIST changes: +BANZ400T; +BANZ400T PO; +CALCTAB89 PO; +MELA10CA PO; +ZOLO100T
[2021-07-20] MEDS ORDERED: CBD OIL (20:39)
[2021-07-21] MEDS ORDERED: cefTRIAXone SOD 1GM VIAL (J0696 PER 250MG) IM ONE (04:15)
[2021-07-21] MEDS ORDERED: LIDOCAINE 1% SDV 5ML VIAL DILUENT ONE (04:15)
[2021-07-21] MEDS ORDERED: BOOSTRIX/ADACEL VACCINE (DIPHTH/PERTUSS/ACELL/TETANUS) 0.5ML SYR IM ONE (04:15)
[2021-07-21 04:48] VITALS: BP 118/65
== END 2021-07-21 04:50 | disposition home or self-care (01) ==
LOC: M ED 20:15
DX: S92.534B Nondisplaced fracture of distal phalanx of right lesser toe(s), initial encounter for open fracture (principal); W21.89XA Striking against or struck by other sports equipment, initial encounter; Y92.39 Other specified sports and athletic area as the place of occurrence of the external cause; F84.0 Autistic disorder; G40.909 Epilepsy, unspecified, not intractable, without status epilepticus; D68.0 Von Willebrand disease; Z79.899 Other long term (current) drug therapy; Z79.3 Long term (current) use of hormonal contraceptives
CPT/HCPCS: 73660; 90471; 90715; 96372; 99283; J0696

== ENCOUNTER → 2021-12-01 | Outpatient (CLI) | payer MEDICAID ==
[~2021-12-01] MED LIST changes: +CBD OIL
== END ==
LOC: M WHC 09:51
PROVIDERS: ATTEND Physician Assistant
DX: R22.1 Localized swelling, mass and lump, neck (principal)

== ENCOUNTER → 2022-01-02 | Outpatient (CLI) | payer MEDICAID | LOC: M RAD 09:48 | PROVIDERS: ATTEND Specialist | DX: R59.1 Generalized enlarged lymph nodes (principal) ==

== ENCOUNTER → 2022-03-05 | Outpatient (CLI) | payer MEDICAID ==
[~2022-03-05] MED LIST changes: +LIDOCAINE 1% MDV 20ML VIAL As Ordered ONE
[2022-03-05 10:13] VITALS: BP 112/64
== END ==
LOC: M IRPRO 09:07
PROVIDERS: ATTEND Otolaryngology
DX: R59.0 Localized enlarged lymph nodes (principal)

== ENCOUNTER 2022-03-13 12:18 | Emergency (ER) | payer MEDICAID ==
[~2022-03-13] VITALS: Ht 182.9 cm; Wt 72.0 kg
[~2022-03-13 12:18] MED LIST changes: -LIDOCAINE 1% MDV 20ML VIAL As Ordered ONE
[2022-03-13 12:26] VITALS: BP 131/78
[2022-03-13 14:50] LABS: HEMATOCRIT 41.5 % (36.0-47.0); HEMOGLOBIN 13.7 g/dl (12.0-15.5); MEAN CORPUSCULAR HEMOGLOBIN 31.9 pg (27.0-33.0); MEAN CORPUSCULAR VOLUME 96.7 fl (80.0-96.0); PLATELET COUNT, AUTOMATED 219 10^3/uL (150-450); RED BLOOD COUNT 4.29 10^6/uL (4.00-5.40); WHITE BLOOD COUNT 5.6 10^3/uL (4.0-10.0)
[2022-03-13 15:41] LABS: RSV AMPLIFICATION NEGATIVE (NEGATIVE)
[2022-03-13 15:45] LABS: HCG, SERUM QUALITATIVE NEGATIVE (NEGATIVE)
[2022-03-13 15:57] LABS: ACETAMINOPHEN LEVEL < 2.0 UG/ML (10.0-30.0); ALBUMIN 3.7 GM/DL (3.2-5.2); ALT/SGPT 14 U/L (12-78); BILIRUBIN,DIRECT 0.1 MG/DL (0.0-0.2); BILIRUBIN,TOTAL 0.3 MG/DL (0.2-1.0); BLOOD UREA NITROGEN 11 MG/DL (7-18); CALCIUM LEVEL 9.5 MG/DL (8.5-10.1); CARBON DIOXIDE LEVEL 26 MEQ/L (21-32); CHLORIDE LEVEL 107 MEQ/L (98-107); CREATININE FOR GFR 0.71 MG/DL (0.55-1.30); ETHYL ALCOHOL (ETHANOL) 0.006 % (0.000-0.010); GLOMERULAR FILTRATION RATE > 60.0 (>60); GLUCOSE, FASTING 87 MG/DL (70-100); POTASSIUM SERUM 4.3 MEQ/L (3.5-5.1); SALICYLATE LEVEL < 1.7 MG/DL (5.0-30.0); SODIUM LEVEL 140 MEQ/L (136-145); TOTAL PROTEIN 6.8 GM/DL (6.4-8.2)
[2022-03-13 18:19] LABS: AMPHETAMINES LEVEL URINE POSITIVE (NEGATIVE); BARBITURATES URINE NEGATIVE (NEGATIVE); BENZODIAZEPINES URINE POSITIVE (NEGATIVE); CANNABINOIDS URINE POSITIVE (NEGATIVE); COCAINE METABOLITE URINE NEGATIVE (NEGATIVE); METHADONE URINE NEGATIVE (NEGATIVE); OPIATES URINE NEGATIVE (NEGATIVE); PHENCYCLIDINE URINE NEGATIVE (NEGATIVE)
== END 2022-03-13 18:02 | disposition home or self-care (01) ==
LOC: M ED 12:18
DX: F43.0 Acute stress reaction (principal); R45.851 Suicidal ideations; R45.850 Homicidal ideations; F90.9 Attention-deficit hyperactivity disorder, unspecified type; F42.9 Obsessive-compulsive disorder, unspecified; Z79.899 Other long term (current) drug therapy

== ENCOUNTER 2022-03-14 10:57 | Emergency (ER) | payer MEDICAID ==
[2022-03-14 11:52] LABS: HEMATOCRIT 38.2 % (36.0-47.0); HEMOGLOBIN 12.8 g/dl (12.0-15.5); MEAN CORPUSCULAR HEMOGLOBIN 32.2 pg (27.0-33.0); MEAN CORPUSCULAR HGB CONC 33.5 g/dl (32.0-36.5); PLATELET COUNT, AUTOMATED 197 10^3/uL (150-450); RED BLOOD COUNT 3.98 10^6/uL (4.00-5.40); WHITE BLOOD COUNT 5.8 10^3/uL (4.0-10.0)
[2022-03-14 12:29] LABS: RSV AMPLIFICATION NEGATIVE (NEGATIVE)
[2022-03-14 12:31] LABS: HCG, SERUM QUALITATIVE NEGATIVE (NEGATIVE)
[2022-03-14 13:03] LABS: ACETAMINOPHEN LEVEL < 2.0 UG/ML (10.0-30.0); ALBUMIN 3.6 GM/DL (3.2-5.2); ALT/SGPT 14 U/L (12-78); BILIRUBIN,DIRECT 0.1 MG/DL (0.0-0.2); BILIRUBIN,TOTAL 0.3 MG/DL (0.2-1.0); BLOOD UREA NITROGEN 13 MG/DL (7-18); CALCIUM LEVEL 9.4 MG/DL (8.5-10.1); CARBON DIOXIDE LEVEL 28 MEQ/L (21-32); CHLORIDE LEVEL 108 MEQ/L (98-107); CREATININE FOR GFR 0.82 MG/DL (0.55-1.30); ETHYL ALCOHOL (ETHANOL) < 0.003 % (0.000-0.010); GLOMERULAR FILTRATION RATE > 60.0 (>60); GLUCOSE, FASTING 106 MG/DL (70-100); SALICYLATE LEVEL < 1.7 MG/DL (5.0-30.0); SODIUM LEVEL 141 MEQ/L (136-145); TOTAL PROTEIN 6.5 GM/DL (6.4-8.2)
[2022-03-14 15:07] VITALS: BP 108/55
[2022-03-14 16:53] LABS: AMPHETAMINES LEVEL URINE POSITIVE (NEGATIVE); BARBITURATES URINE NEGATIVE (NEGATIVE); BENZODIAZEPINES URINE POSITIVE (NEGATIVE); CANNABINOIDS URINE POSITIVE (NEGATIVE); COCAINE METABOLITE URINE NEGATIVE (NEGATIVE); METHADONE URINE NEGATIVE (NEGATIVE); OPIATES URINE NEGATIVE (NEGATIVE); PHENCYCLIDINE URINE NEGATIVE (NEGATIVE)
== END 2022-03-14 17:15 | disposition home or self-care (01) ==
LOC: M ED 10:57
DX: F42.9 Obsessive-compulsive disorder, unspecified (principal); D68.00 Von Willebrand disease, unspecified; F90.9 Attention-deficit hyperactivity disorder, unspecified type; F91.3 Oppositional defiant disorder; F71 Moderate intellectual disabilities; Z79.899 Other long term (current) drug therapy

== ENCOUNTER 2022-04-01 22:19 | Inpatient (IN) | payer MEDICAID ==
[~2022-04-01] VITALS: Ht 152.4 cm; Wt 98.5 kg
[~2022-04-01 22:19] MED LIST changes: -ZOLO100T; +ZOLO100T PO
[2022-04-01 23:06] LABS: HEMATOCRIT 39.9 % (36.0-47.0); HEMOGLOBIN 13.6 g/dl (12.0-15.5); MEAN CORPUSCULAR HEMOGLOBIN 32.4 pg (27.0-33.0); MEAN CORPUSCULAR HGB CONC 34.1 g/dl (32.0-36.5); PLATELET COUNT, AUTOMATED 236 10^3/uL (150-450); WHITE BLOOD COUNT 8.8 10^3/uL (4.0-10.0)
[2022-04-01 23:44] LABS: RSV AMPLIFICATION NEGATIVE (NEGATIVE)
[2022-04-01 23:51] LABS: AMPHETAMINES LEVEL URINE POSITIVE (NEGATIVE); BARBITURATES URINE NEGATIVE (NEGATIVE); BENZODIAZEPINES URINE POSITIVE (NEGATIVE); CANNABINOIDS URINE POSITIVE (NEGATIVE); COCAINE METABOLITE URINE NEGATIVE (NEGATIVE); METHADONE URINE NEGATIVE (NEGATIVE); OPIATES URINE NEGATIVE (NEGATIVE); PHENCYCLIDINE URINE NEGATIVE (NEGATIVE)
[2022-04-02 00:09] LABS: ACETAMINOPHEN LEVEL < 2.0 UG/ML (10.0-30.0); ALBUMIN 3.8 GM/DL (3.2-5.2); ALKALINE PHOSPHATASE 99 U/L (45-117); ALT/SGPT 15 U/L (12-78); AST/SGOT 10 U/L (7-37); BILIRUBIN,DIRECT < 0.1 MG/DL (0.0-0.2); BILIRUBIN,TOTAL 0.2 MG/DL (0.2-1.0); BLOOD UREA NITROGEN 17 MG/DL (7-18); CALCIUM LEVEL 8.6 MG/DL (8.5-10.1); CARBON DIOXIDE LEVEL 24 MEQ/L (21-32); CHLORIDE LEVEL 108 MEQ/L (98-107); CREATININE FOR GFR 0.86 MG/DL (0.55-1.30); ETHYL ALCOHOL (ETHANOL) 0.003 % (0.000-0.010); GLOMERULAR FILTRATION RATE > 60.0 (>60); GLUCOSE, FASTING 119 MG/DL (70-100); POTASSIUM SERUM 3.9 MEQ/L (3.5-5.1); SALICYLATE LEVEL < 1.7 MG/DL (5.0-30.0); SODIUM LEVEL 138 MEQ/L (136-145); TOTAL PROTEIN 7.1 GM/DL (6.4-8.2)
[2022-04-02 05:52] LABS: HCG, SERUM QUALITATIVE NEGATIVE (NEGATIVE)
[2022-04-02] MEDS ORDERED: MIDAZOLAM INJ 2MG/2ML VIAL IM ONE (16:35)
[2022-04-02] MEDS ORDERED: OLANZapine INTRAMUSCULAR 10MG VIAL IM ONE (16:35)
[2022-04-02] MEDS ORDERED: BANZ400T PO ×2 (19:09)
[2022-04-02] MEDS ORDERED: CLOB20TA13 PO (19:09)
[2022-04-02] MEDS ORDERED: patient note (19:09)
[2022-04-02] MEDS ORDERED: BUSP15TA47 PO (19:09)
[2022-04-02] MEDS ORDERED: HYDR-3363 PO (19:09)
[2022-04-02] MEDS ORDERED: HOME MED LIST COMPLETE! XX SCH (19:10)
[2022-04-03] MEDS: busPIRone 5 MG TAB PO SCH ×4 (02:58→22:29)
[2022-04-03] MEDS: SERTRALINE 100 MG TAB PO SCH (09:25)
[2022-04-03] MEDS: DOCUSATE SODIUM 100MG CAPSULE PO SCH (09:25)
[2022-04-03] MEDS ORDERED: LORazepam 2 MG/ML 1ML VIAL IV STA (15:12)
[2022-04-03] MEDS ORDERED: LORazepam 2 MG/ML 1ML VIAL IV PRN (15:15)
[2022-04-03] MEDS ORDERED: HALOPERIDOL 5MG/ML 1ML VIAL IV PRN (15:15)
[2022-04-03] MEDS ORDERED: diphenhydrAMINE 50MG/ML VIAL IV PRN ×2 (15:15→15:25)
[2022-04-03] MEDS ORDERED: diphenhydrAMINE 50MG/ML VIAL IM STA (15:29)
[2022-04-03] MEDS: HALOPERIDOL 5MG/ML 1ML VIAL IM PRN (15:43)
[2022-04-03] MEDS: LORazepam 2 MG/ML 1ML VIAL IM PRN (15:43)
[2022-04-04] MEDS: HALOPERIDOL 5MG/ML 1ML VIAL IM PRN (07:33)
[2022-04-04] MEDS: LORazepam 2 MG/ML 1ML VIAL IM PRN (07:34)
[2022-04-04] MEDS: diphenhydrAMINE 50MG/ML VIAL IM PRN (08:00)
[2022-04-04] MEDS: SERTRALINE 100 MG TAB PO SCH (09:21)
[2022-04-04] MEDS: busPIRone 5 MG TAB PO SCH ×3 (09:21→20:57)
[2022-04-04] MEDS: DOCUSATE SODIUM 100MG CAPSULE PO SCH (09:21)
[2022-04-05] MEDS: SERTRALINE 100 MG TAB PO SCH (09:25)
[2022-04-05] MEDS: busPIRone 5 MG TAB PO SCH ×3 (09:25→20:06)
[2022-04-05] MEDS: DOCUSATE SODIUM 100MG CAPSULE PO SCH (09:25)
[2022-04-05 09:45] VITALS: BP 115/69
[2022-04-05 12:16] LABS: POTASSIUM SERUM 4.1 MEQ/L (3.5-5.1)
[2022-04-06 05:53] VITALS: BP 109/68
[2022-04-06] MEDS: HALOPERIDOL 5MG/ML 1ML VIAL IM PRN (10:36)
[2022-04-06] MEDS: DOCUSATE SODIUM 100MG CAPSULE PO SCH (11:12)
[2022-04-06] MEDS: busPIRone 5 MG TAB PO SCH ×4 (11:12→20:56)
[2022-04-06] MEDS: SERTRALINE 100 MG TAB PO SCH (11:12)
[2022-04-06] MEDS: BANZEL 400 MG PO SCH ×2 (11:13→20:50)
[2022-04-06] MEDS: OLANZapine 5 MG TAB PO SCH ×2 (13:28→20:54)
[2022-04-06 18:16] LABS: ABG BASE EXCESS -0.6 (-2.0-2.0); ABG HCO3 24.8 MEQ/L (22.0-26.0); ABG O2 SATURATION 96.8 % (95.0-99.0); ABG PARTIAL PRESSURE CO2 43.2 mmHg (35.0-45.0); ABG PARTIAL PRESSURE O2 88.9 mmHg (75.0-100.0); ABG TOTAL CO2 26.1 MEQ/L (22.0-29.0); ABG pH (ARTERIAL) 7.376 UNITS (7.350-7.450)
[2022-04-07 05:32] VITALS: BP 121/55
[2022-04-07] MEDS: DOCUSATE SODIUM 100MG CAPSULE PO SCH (09:33)
[2022-04-07] MEDS: SERTRALINE 100 MG TAB PO SCH (09:33)
[2022-04-07] MEDS: OLANZapine 5 MG TAB PO SCH ×2 (09:34→22:04)
[2022-04-07] MEDS: busPIRone 5 MG TAB PO SCH ×3 (09:34→22:04)
[2022-04-07] MEDS: BANZEL 400 MG PO SCH ×2 (09:37→22:05)
[2022-04-08 05:27] VITALS: BP 113/73
[2022-04-08] MEDS: busPIRone 5 MG TAB PO SCH ×3 (09:08→20:02)
[2022-04-08] MEDS: BANZEL 400 MG PO SCH ×2 (09:08→20:02)
[2022-04-08] MEDS: SERTRALINE 100 MG TAB PO SCH (09:08)
[2022-04-08] MEDS: OLANZapine 5 MG TAB PO SCH ×2 (09:08→20:01)
[2022-04-08] MEDS: DOCUSATE SODIUM 100MG CAPSULE PO SCH (09:08)
[2022-04-08] MEDS: CIPRODEX OTIC SUSP 7.5ML AD SCH (20:04)
[2022-04-08] MEDS: CARBAMIDE PEROXIDE 6.5% OTIC SOLN 15ML AU SCH (20:11)
[2022-04-09] MEDS: LORazepam 2 MG/ML 1ML VIAL IM PRN (02:04)
[2022-04-09 06:00] VITALS: BP 110/72
[2022-04-09] MEDS: HALOPERIDOL 5MG/ML 1ML VIAL IM PRN (07:27)
[2022-04-09] MEDS: diphenhydrAMINE 50MG/ML VIAL IM PRN (08:13)
[2022-04-09] MEDS: SERTRALINE 100 MG TAB PO SCH (08:14)
[2022-04-09] MEDS: DOCUSATE SODIUM 100MG CAPSULE PO SCH (08:14)
[2022-04-09] MEDS: busPIRone 5 MG TAB PO SCH ×3 (08:14→20:14)
[2022-04-09] MEDS: OLANZapine 5 MG TAB PO SCH ×2 (08:14→20:14)
[2022-04-09] MEDS: BANZEL 400 MG PO SCH ×2 (09:13→20:16)
[2022-04-09] MEDS: CARBAMIDE PEROXIDE 6.5% OTIC SOLN 15ML AU SCH ×2 (09:13→20:16)
[2022-04-09] MEDS: CIPRODEX OTIC SUSP 7.5ML AD SCH ×2 (09:13→20:16)
[2022-04-10 06:15] VITALS: BP 112/71
[2022-04-10] MEDS: SERTRALINE 100 MG TAB PO SCH (07:42)
[2022-04-10] MEDS: DOCUSATE SODIUM 100MG CAPSULE PO SCH (07:42)
[2022-04-10] MEDS: CARBAMIDE PEROXIDE 6.5% OTIC SOLN 15ML AU SCH ×2 (07:43→21:13)
[2022-04-10] MEDS: busPIRone 5 MG TAB PO SCH ×3 (07:43→21:11)
[2022-04-10] MEDS: BANZEL 400 MG PO SCH ×2 (07:43→21:12)
[2022-04-10] MEDS: OLANZapine 5 MG TAB PO SCH ×2 (07:43→21:11)
[2022-04-10] MEDS: CIPRODEX OTIC SUSP 7.5ML AD SCH ×2 (07:44→21:14)
[2022-04-11 06:00] VITALS: BP 101/64
[2022-04-11] MEDS: SERTRALINE 100 MG TAB PO SCH (09:49)
[2022-04-11] MEDS: OLANZapine 5 MG TAB PO SCH ×2 (09:49→20:33)
[2022-04-11] MEDS: CIPRODEX OTIC SUSP 7.5ML AD SCH ×2 (09:50→20:39)
[2022-04-11] MEDS: busPIRone 5 MG TAB PO SCH ×3 (09:50→20:33)
[2022-04-11] MEDS: BANZEL 400 MG PO SCH ×2 (09:50→22:47)
[2022-04-11] MEDS: DOCUSATE SODIUM 100MG CAPSULE PO SCH (09:50)
[2022-04-11] MEDS: CARBAMIDE PEROXIDE 6.5% OTIC SOLN 15ML AU SCH ×2 (09:51→20:39)
[2022-04-11] MEDS: HALOPERIDOL 5MG/ML 1ML VIAL IM PRN (12:20)
[2022-04-11] MEDS: diphenhydrAMINE 50MG/ML VIAL IM PRN (12:29)
[2022-04-11] MEDS: LORazepam 2 MG/ML 1ML VIAL IM PRN (13:02)
[2022-04-12 05:24] VITALS: BP 105/66
[2022-04-12] MEDS ORDERED: ROCURONIUM BROMIDE 50MG/5ML VIAL As Ordered ONE ×2 (07:11→08:27)
[2022-04-12] MEDS ORDERED: LIDOCAINE 2% 100MG/5ML SDV (FOR ANES.) As Ordered ONE (07:11)
[2022-04-12] MEDS ORDERED: LACRILUBE (AKWA TEARS) OPHTH OINT 3.5GM As Ordered ONE (07:11)
[2022-04-12] MEDS ORDERED: ONDANSETRON 4MG 2ML VIAL As Ordered ONE (07:11)
[2022-04-12] MEDS ORDERED: propofoL 200 MG/20 ML VIAL As Ordered ONE (07:11)
[2022-04-12] MEDS ORDERED: MIDAZOLAM INJ 2MG/2ML VIAL As Ordered ONE (07:12)
[2022-04-12] MEDS ORDERED: fentaNYL 100 MCG/2 ML INJECTION As Ordered ONE ×2 (07:12→08:26)
[2022-04-12] MEDS ORDERED: ESMOLOL INJ 100MG/10ML VIAL As Ordered ONE (08:09)
[2022-04-12] MEDS ORDERED: ACETAMINOPHEN 1000MG 100ML IV BAG As Ordered ONE (08:11)
[2022-04-12] MEDS: DOCUSATE SODIUM 100MG CAPSULE PO SCH (08:14)
[2022-04-12] MEDS: OLANZapine 5 MG TAB PO SCH ×3 (08:14→23:42)
[2022-04-12] MEDS: SERTRALINE 100 MG TAB PO SCH (08:14)
[2022-04-12] MEDS: busPIRone 5 MG TAB PO SCH ×2 (08:14→23:42)
[2022-04-12] MEDS ORDERED: SUGAMMADEX SODIUM 500 MG/5 ML VIAL (BRIDION) As Ordered ONE (08:16)
[2022-04-12] MEDS ORDERED: KETOROLAC 60MG 2ML VIAL As Ordered ONE (08:16)
[2022-04-12] MEDS: CARBAMIDE PEROXIDE 6.5% OTIC SOLN 15ML AU SCH (08:19)
[2022-04-12] MEDS: CIPRODEX OTIC SUSP 7.5ML AD SCH ×2 (08:19→23:47)
[2022-04-12] MEDS ORDERED: ePHEDrine SULFATE 25 MG/5 ML(5MG/ML) SYRINGE As Ordered ONE (10:00)
[2022-04-12] MEDS: BANZEL 400 MG PO SCH ×2 (10:43→23:42)
[2022-04-12] MEDS: HALOPERIDOL 5MG/ML 1ML VIAL IM PRN (11:02)
[2022-04-12] MEDS: LORazepam 2 MG/ML 1ML VIAL IM PRN (11:02)
[2022-04-12] MEDS: diphenhydrAMINE 50MG/ML VIAL IM PRN (11:02)
[2022-04-12] MEDS ORDERED: HALOPERIDOL 5MG/ML 1ML VIAL IV ONE (11:40)
[2022-04-12] MEDS: diphenhydrAMINE 25MG CAP PO SCH (23:41)
[2022-04-13] MEDS: diazePAM 10MG/2ML SYRINGE IM PRN (05:19)
[2022-04-13 06:00] VITALS: BP 118/77
[2022-04-13] MEDS: DOCUSATE SODIUM 100MG CAPSULE PO SCH (07:54)
[2022-04-13] MEDS: OLANZapine 5 MG TAB PO SCH ×3 (07:54→22:08)
[2022-04-13] MEDS: SERTRALINE 100 MG TAB PO SCH (07:54)
[2022-04-13] MEDS: busPIRone 5 MG TAB PO SCH ×2 (07:55→22:08)
[2022-04-13] MEDS: diphenhydrAMINE 25MG CAP PO SCH ×2 (07:55→22:08)
[2022-04-13] MEDS: BANZEL 400 MG PO SCH ×2 (07:55→22:10)
[2022-04-13] MEDS: CIPRODEX OTIC SUSP 7.5ML AD SCH ×2 (07:56→22:10)
[2022-04-14 06:20] VITALS: BP 101/52
[2022-04-14] MEDS: diazePAM 10MG/2ML SYRINGE IM PRN (07:04)
[2022-04-14] MEDS: DOCUSATE SODIUM 100MG CAPSULE PO SCH (08:39)
[2022-04-14] MEDS: busPIRone 5 MG TAB PO SCH ×2 (08:39→20:44)
[2022-04-14] MEDS: OLANZapine 5 MG TAB PO SCH ×3 (08:39→20:43)
[2022-04-14] MEDS: SERTRALINE 100 MG TAB PO SCH (08:39)
[2022-04-14] MEDS: diphenhydrAMINE 25MG CAP PO SCH ×2 (08:40→20:43)
[2022-04-14] MEDS: BANZEL 400 MG PO SCH ×2 (08:40→20:48)
[2022-04-14] MEDS: CIPRODEX OTIC SUSP 7.5ML AD SCH ×2 (08:41→20:47)
[2022-04-14] MEDS: ACETAMINOPHEN TAB 650MG DOSE (2X325MG) PO PRN (10:46)
[2022-04-15 05:48] VITALS: BP 126/74
[2022-04-15] MEDS: busPIRone 5 MG TAB PO SCH (08:15)
[2022-04-15] MEDS: DOCUSATE SODIUM 100MG CAPSULE PO SCH (08:15)
[2022-04-15] MEDS: BANZEL 400 MG PO SCH ×2 (08:16→22:31)
[2022-04-15] MEDS: diphenhydrAMINE 25MG CAP PO SCH ×2 (08:17→22:29)
[2022-04-15] MEDS: OLANZapine 5 MG TAB PO SCH ×3 (08:17→22:28)
[2022-04-15] MEDS: SERTRALINE 100 MG TAB PO SCH (08:17)
[2022-04-15] MEDS: CIPRODEX OTIC SUSP 7.5ML AD SCH (09:44)
[2022-04-15] MEDS: ACETAMINOPHEN TAB 650MG DOSE (2X325MG) PO PRN (09:44)
[2022-04-16 06:39] VITALS: BP 114/75
[2022-04-16] MEDS: SERTRALINE 100 MG TAB PO SCH (08:58)
[2022-04-16] MEDS: diphenhydrAMINE 25MG CAP PO SCH ×2 (08:58→20:37)
[2022-04-16] MEDS: DOCUSATE SODIUM 100MG CAPSULE PO SCH (08:58)
[2022-04-16] MEDS: OLANZapine 5 MG TAB PO SCH ×3 (08:59→20:37)
[2022-04-16] MEDS: busPIRone 5 MG TAB PO SCH (08:59)
[2022-04-16] MEDS: BANZEL 400 MG PO SCH ×2 (09:00→20:39)
[2022-04-16] MEDS: HALOPERIDOL 5MG/ML 1ML VIAL IM PRN (13:35)
[2022-04-17 06:48] VITALS: BP 108/71
[2022-04-17] MEDS: SERTRALINE 100 MG TAB PO SCH (08:52)
[2022-04-17] MEDS: DOCUSATE SODIUM 100MG CAPSULE PO SCH (08:53)
[2022-04-17] MEDS: diphenhydrAMINE 25MG CAP PO SCH ×2 (08:53→21:01)
[2022-04-17] MEDS: busPIRone 5 MG TAB PO SCH (08:53)
[2022-04-17] MEDS: OLANZapine 5 MG TAB PO SCH ×3 (08:53→21:01)
[2022-04-17] MEDS: BANZEL 400 MG PO SCH ×2 (08:53→21:01)
[2022-04-18 05:45] VITALS: BP 106/68
[2022-04-18] MEDS: HALOPERIDOL 5MG/ML 1ML VIAL IM PRN ×2 (07:41→11:49)
[2022-04-18] MEDS: SERTRALINE 100 MG TAB PO SCH (07:58)
[2022-04-18] MEDS: OLANZapine 5 MG TAB PO SCH ×3 (07:58→20:11)
[2022-04-18] MEDS: diphenhydrAMINE 25MG CAP PO SCH ×2 (07:58→20:11)
[2022-04-18] MEDS: DOCUSATE SODIUM 100MG CAPSULE PO SCH (07:58)
[2022-04-18] MEDS: BANZEL 400 MG PO SCH ×2 (07:59→20:12)
[2022-04-19 06:00] VITALS: BP 105/67
[2022-04-19] MEDS: diphenhydrAMINE 25MG CAP PO SCH ×2 (08:55→20:03)
[2022-04-19] MEDS: OLANZapine 5 MG TAB PO SCH ×3 (09:02→20:03)
[2022-04-19] MEDS: BANZEL 400 MG PO SCH ×2 (09:03→20:03)
[2022-04-19] MEDS: SERTRALINE 100 MG TAB PO SCH (09:03)
[2022-04-19] MEDS: DOCUSATE SODIUM 100MG CAPSULE PO SCH (09:03)
[2022-04-19] MEDS: HALOPERIDOL 5MG/ML 1ML VIAL IM PRN ×2 (09:05→19:28)
[2022-04-19] MEDS: diphenhydrAMINE 50MG/ML VIAL IM PRN ×2 (09:05→14:49)
[2022-04-19] MEDS: diazePAM 10MG/2ML SYRINGE IM PRN ×2 (09:06→14:49)
[2022-04-20 06:00] VITALS: BP 104/65
[2022-04-20] MEDS: HALOPERIDOL 5MG/ML 1ML VIAL IM PRN ×2 (08:00→15:57)
[2022-04-20] MEDS: SERTRALINE 100 MG TAB PO SCH (08:00)
[2022-04-20] MEDS: OLANZapine 5 MG TAB PO SCH ×3 (08:00→21:00)
[2022-04-20] MEDS: diphenhydrAMINE 25MG CAP PO SCH ×2 (08:00→22:13)
[2022-04-20] MEDS: DOCUSATE SODIUM 100MG CAPSULE PO SCH (08:00)
[2022-04-20] MEDS: diazePAM 10MG/2ML SYRINGE IM PRN ×2 (08:05→16:22)
[2022-04-20] MEDS: BANZEL 400 MG PO SCH ×2 (08:15→22:16)
[2022-04-21 06:00] VITALS: BP 111/76
[2022-04-21] MEDS: BANZEL 400 MG PO SCH ×2 (08:00→20:47)
[2022-04-21] MEDS: diphenhydrAMINE 25MG CAP PO SCH (08:00)
[2022-04-21] MEDS: OLANZapine 5 MG TAB PO SCH ×3 (08:00→20:47)
[2022-04-21] MEDS: SERTRALINE 100 MG TAB PO SCH (08:01)
[2022-04-21] MEDS: DOCUSATE SODIUM 100MG CAPSULE PO SCH (08:01)
[2022-04-22 06:55] VITALS: BP 110/76
[2022-04-22] MEDS: DOCUSATE SODIUM 100MG CAPSULE PO SCH (07:58)
[2022-04-22] MEDS: BANZEL 400 MG PO SCH ×2 (07:59→21:11)
[2022-04-22] MEDS: SERTRALINE 100 MG TAB PO SCH (07:59)
[2022-04-22] MEDS: OLANZapine 5 MG TAB PO SCH ×3 (07:59→21:10)
[2022-04-23 06:00] VITALS: BP 110/76
[2022-04-23] MEDS: DOCUSATE SODIUM 100MG CAPSULE PO SCH (08:46)
[2022-04-23] MEDS: BANZEL 400 MG PO SCH ×2 (08:46→20:27)
[2022-04-23] MEDS: SERTRALINE 100 MG TAB PO SCH (08:46)
[2022-04-23] MEDS: OLANZapine 5 MG TAB PO SCH ×3 (08:47→20:26)
[2022-04-23] MEDS: ACETAMINOPHEN TAB 650MG DOSE (2X325MG) PO PRN (18:33)
[2022-04-24 06:30] VITALS: BP 107/56
[2022-04-24] MEDS: BANZEL 400 MG PO SCH ×2 (08:53→20:08)
[2022-04-24] MEDS: DOCUSATE SODIUM 100MG CAPSULE PO SCH (08:53)
[2022-04-24] MEDS: SERTRALINE 100 MG TAB PO SCH (08:53)
[2022-04-24] MEDS: OLANZapine 5 MG TAB PO SCH ×3 (08:53→20:08)
[2022-04-24] MEDS: ACETAMINOPHEN TAB 650MG DOSE (2X325MG) PO PRN (22:23)
[2022-04-25 05:12] VITALS: BP 111/75
[2022-04-25] MEDS: OLANZapine 5 MG TAB PO SCH ×3 (09:03→19:53)
[2022-04-25] MEDS: DOCUSATE SODIUM 100MG CAPSULE PO SCH (09:03)
[2022-04-25] MEDS: SERTRALINE 100 MG TAB PO SCH (09:03)
[2022-04-25] MEDS: BANZEL 400 MG PO SCH ×2 (09:04→19:53)
[2022-04-25] MEDS: LORazepam 2 MG TAB PO PRN (10:50)
[2022-04-25] MEDS: diphenhydrAMINE 50MG/ML VIAL IM PRN (11:01)
[2022-04-25] MEDS: HALOPERIDOL 5MG/ML 1ML VIAL IM PRN (11:01)
[2022-04-26] MEDS: LORazepam 2 MG TAB PO PRN (01:54)
[2022-04-26 06:00] VITALS: BP 114/78
[2022-04-26] MEDS: SERTRALINE 100 MG TAB PO SCH (09:44)
[2022-04-26] MEDS: diphenhydrAMINE 50MG/ML VIAL IM PRN (09:44)
[2022-04-26] MEDS: BANZEL 400 MG PO SCH ×3 (09:44→23:32)
[2022-04-26] MEDS: HALOPERIDOL 5MG/ML 1ML VIAL IM PRN (09:44)
[2022-04-26] MEDS: DOCUSATE SODIUM 100MG CAPSULE PO SCH (09:45)
[2022-04-26] MEDS: OLANZapine 5 MG TAB PO SCH ×4 (09:45→23:31)
[2022-04-27] MEDS: LORazepam 2 MG TAB PO PRN ×2 (04:36→11:56)
[2022-04-27 06:00] VITALS: BP 100/65
[2022-04-27] MEDS: SERTRALINE 100 MG TAB PO SCH (08:18)
[2022-04-27] MEDS: BANZEL 400 MG PO SCH ×2 (08:18→18:41)
[2022-04-27] MEDS: OLANZapine 5 MG TAB PO SCH ×3 (08:18→18:40)
[2022-04-27] MEDS: DOCUSATE SODIUM 100MG CAPSULE PO SCH (08:18)
[2022-04-27] MEDS: HALOPERIDOL 5MG/ML 1ML VIAL IM PRN (16:39)
[2022-04-28 05:29] VITALS: BP 111/73
[2022-04-28] MEDS: HALOPERIDOL 5MG/ML 1ML VIAL IM PRN ×2 (06:17→14:00)
[2022-04-28] MEDS: SERTRALINE 100 MG TAB PO SCH (08:35)
[2022-04-28] MEDS: diphenhydrAMINE 50MG CAP PO PRN (08:35)
[2022-04-28] MEDS: DOCUSATE SODIUM 100MG CAPSULE PO SCH (08:35)
[2022-04-28] MEDS: OLANZapine 5 MG TAB PO SCH ×3 (08:35→21:24)
[2022-04-28] MEDS: BANZEL 400 MG PO SCH ×3 (08:36→21:25)
[2022-04-28] MEDS: LORazepam 2 MG TAB PO PRN (13:27)
[2022-04-29 06:00] VITALS: BP 110/71
[2022-04-29] MEDS: DOCUSATE SODIUM 100MG CAPSULE PO SCH (08:29)
[2022-04-29] MEDS: OLANZapine 5 MG TAB PO SCH ×3 (08:30→20:20)
[2022-04-29] MEDS: SERTRALINE 100 MG TAB PO SCH (08:30)
[2022-04-29] MEDS: BANZEL 400 MG PO SCH ×3 (08:30→20:21)
[2022-04-30 05:37] VITALS: BP 112/78
[2022-04-30] MEDS: BANZEL 400 MG PO SCH ×2 (08:08→22:02)
[2022-04-30] MEDS: SERTRALINE 100 MG TAB PO SCH (08:08)
[2022-04-30] MEDS: OLANZapine 5 MG TAB PO SCH ×3 (08:08→22:02)
[2022-04-30] MEDS: DOCUSATE SODIUM 100MG CAPSULE PO SCH (08:08)
[2022-04-30] MEDS: LORazepam 2 MG TAB PO PRN ×2 (13:21→22:02)
[2022-04-30] MEDS: HALOPERIDOL 5MG/ML 1ML VIAL IM PRN (23:46)
[2022-05-01 06:00] VITALS: BP 113/78
[2022-05-01] MEDS: SERTRALINE 100 MG TAB PO SCH (08:14)
[2022-05-01] MEDS: OLANZapine 5 MG TAB PO SCH ×3 (08:14→22:05)
[2022-05-01] MEDS: DOCUSATE SODIUM 100MG CAPSULE PO SCH (08:14)
[2022-05-01] MEDS: BANZEL 400 MG PO SCH ×2 (08:15→22:08)
[2022-05-01] MEDS: LORazepam 2 MG TAB PO PRN ×2 (08:27→22:05)
[2022-05-01] MEDS: diazePAM 10MG/2ML SYRINGE IM PRN (11:26)
[2022-05-02] MEDS: HALOPERIDOL 5MG/ML 1ML VIAL IM PRN (00:08)
[2022-05-02 06:00] VITALS: BP 97/57
[2022-05-02] MEDS: BANZEL 400 MG PO SCH ×2 (08:54→19:34)
[2022-05-02] MEDS: SERTRALINE 100 MG TAB PO SCH (08:55)
[2022-05-02] MEDS: DOCUSATE SODIUM 100MG CAPSULE PO SCH (08:55)
[2022-05-02] MEDS: LORazepam 2 MG TAB PO PRN ×2 (08:56→19:34)
[2022-05-02] MEDS: OLANZapine 5 MG TAB PO SCH ×3 (08:56→19:33)
[2022-05-03] MEDS: diphenhydrAMINE 50MG/ML VIAL IM PRN (06:15)
[2022-05-03] MEDS: LORazepam 2 MG TAB PO PRN (06:24)
[2022-05-03] MEDS: DOCUSATE SODIUM 100MG CAPSULE PO SCH (10:09)
[2022-05-03] MEDS: OLANZapine 5 MG TAB PO SCH ×3 (10:10→23:53)
[2022-05-03] MEDS: BANZEL 400 MG PO SCH ×2 (10:10→23:52)
[2022-05-03] MEDS: SERTRALINE 100 MG TAB PO SCH (10:10)
[2022-05-03] MEDS: HALOPERIDOL 5MG/ML 1ML VIAL IM PRN (10:13)
[2022-05-03] MEDS: diazePAM 10MG/2ML SYRINGE IM PRN (14:11)
[2022-05-03] MEDS: ACETAMINOPHEN TAB 650MG DOSE (2X325MG) PO PRN (14:38)
[2022-05-04 06:26] VITALS: BP 114/72
[2022-05-04] MEDS: HALOPERIDOL 5MG/ML 1ML VIAL IM PRN ×2 (07:08→15:05)
[2022-05-04] MEDS: diphenhydrAMINE 50MG/ML VIAL IM PRN ×2 (07:08→15:05)
[2022-05-04] MEDS: OLANZapine 5 MG TAB PO SCH ×3 (09:00→20:05)
[2022-05-04] MEDS: DOCUSATE SODIUM 100MG CAPSULE PO SCH (12:36)
[2022-05-04] MEDS: BANZEL 400 MG PO SCH ×2 (12:36→20:04)
[2022-05-04] MEDS: SERTRALINE 100 MG TAB PO SCH (12:36)
[2022-05-04] MEDS: diazePAM 10MG/2ML SYRINGE IM PRN (15:07)
[2022-05-04] MEDS: ACETAMINOPHEN TAB 650MG DOSE (2X325MG) PO PRN (15:29)
[2022-05-04 16:46] VITALS: BP 96/65
[2022-05-05] MEDS: DOCUSATE SODIUM 100MG CAPSULE PO SCH (08:02)
[2022-05-05] MEDS: OLANZapine 5 MG TAB PO SCH ×3 (08:02→20:12)
[2022-05-05] MEDS: SERTRALINE 100 MG TAB PO SCH (08:02)
[2022-05-05] MEDS: LORazepam 2 MG TAB PO PRN (08:03)
[2022-05-05] MEDS: BANZEL 400 MG PO SCH ×2 (08:04→20:12)
[2022-05-05] MEDS: diazePAM 10MG/2ML SYRINGE IM PRN (09:05)
[2022-05-05] MEDS: diphenhydrAMINE 50MG/ML VIAL IM PRN (09:14)
[2022-05-06] MEDS: diphenhydrAMINE 50MG/ML VIAL IM PRN ×2 (01:52→07:58)
[2022-05-06] MEDS: LORazepam 2 MG TAB PO PRN (02:19)
[2022-05-06 05:13] VITALS: BP 109/68
[2022-05-06] MEDS: diazePAM 10MG/2ML SYRINGE IM PRN (07:58)
[2022-05-06] MEDS: DOCUSATE SODIUM 100MG CAPSULE PO SCH (08:44)
[2022-05-06] MEDS: SERTRALINE 100 MG TAB PO SCH (08:44)
[2022-05-06] MEDS: BANZEL 400 MG PO SCH ×2 (08:45→20:19)
[2022-05-06] MEDS: OLANZapine 5 MG TAB PO SCH ×3 (09:41→20:19)
[2022-05-06] MEDS: HALOPERIDOL 5MG/ML 1ML VIAL IM PRN (11:07)
[2022-05-06] MEDS: diphenhydrAMINE 50MG CAP PO PRN (20:20)
[2022-05-07 05:01] VITALS: BP 93/60
[2022-05-07] MEDS: HALOPERIDOL 5MG/ML 1ML VIAL IM PRN (07:15)
[2022-05-07] MEDS: diazePAM 10MG/2ML SYRINGE IM PRN (07:16)
[2022-05-07] MEDS: diphenhydrAMINE 50MG/ML VIAL IM PRN (07:41)
[2022-05-07] MEDS: OLANZapine 5 MG TAB PO SCH ×3 (08:24→20:59)
[2022-05-07] MEDS: DOCUSATE SODIUM 100MG CAPSULE PO SCH (08:24)
[2022-05-07] MEDS: SERTRALINE 100 MG TAB PO SCH (08:25)
[2022-05-07] MEDS: BANZEL 400 MG PO SCH ×2 (08:25→20:55)
[2022-05-07] MEDS ORDERED: LORazepam 2 MG/ML 1ML VIAL As Ordered ONE (09:36)
[2022-05-07] MEDS ORDERED: diphenhydrAMINE 50MG/ML VIAL IM STA (09:43)
[2022-05-07] MEDS ORDERED: HALOPERIDOL 5MG/ML 1ML VIAL IM STA (09:43)
[2022-05-07] MEDS ORDERED: LORazepam 2 MG/ML 1ML VIAL IM STA (09:43)
[2022-05-08 06:00] VITALS: BP 99/62
[2022-05-08] MEDS: SERTRALINE 100 MG TAB PO SCH (08:50)
[2022-05-08] MEDS: OLANZapine 5 MG TAB PO SCH ×3 (08:50→21:15)
[2022-05-08] MEDS: DOCUSATE SODIUM 100MG CAPSULE PO SCH (08:50)
[2022-05-08] MEDS: LORazepam 2 MG TAB PO PRN (08:50)
[2022-05-08] MEDS: BANZEL 400 MG PO SCH ×2 (08:51→21:15)
[2022-05-08] MEDS: ACETAMINOPHEN TAB 650MG DOSE (2X325MG) PO PRN (09:38)
[2022-05-08] MEDS: diphenhydrAMINE 50MG CAP PO PRN (09:54)
[2022-05-08] MEDS: HALOPERIDOL 5MG/ML 1ML VIAL IM PRN (09:54)
[2022-05-08] MEDS ORDERED: IBUPROFEN 800 MG TAB PO ONE (10:40)
[2022-05-09] MEDS: LORazepam 2 MG TAB PO PRN ×2 (03:03→10:18)
[2022-05-09 06:00] VITALS: BP 105/68
[2022-05-09] MEDS: diphenhydrAMINE 50MG/ML VIAL IM PRN ×2 (07:21→16:39)
[2022-05-09] MEDS: HALOPERIDOL 5MG/ML 1ML VIAL IM PRN ×2 (07:21→16:40)
[2022-05-09] MEDS: diazePAM 10MG/2ML SYRINGE IM PRN ×2 (07:43→08:23)
[2022-05-09] MEDS: DOCUSATE SODIUM 100MG CAPSULE PO SCH (08:33)
[2022-05-09] MEDS: OLANZapine 5 MG TAB PO SCH ×3 (08:34→22:02)
[2022-05-09] MEDS: SERTRALINE 100 MG TAB PO SCH (08:34)
[2022-05-09] MEDS: BANZEL 400 MG PO SCH ×2 (08:36→22:03)
[2022-05-09] MEDS ORDERED: INFLUENZA QUADRIVALENT PF VACCINE 0.5ML SYRINGE IM.IMMUN ONE (11:00)
[2022-05-10 06:07] VITALS: BP 111/70
[2022-05-10] MEDS: DOCUSATE SODIUM 100MG CAPSULE PO SCH (08:35)
[2022-05-10] MEDS: SERTRALINE 100 MG TAB PO SCH (08:35)
[2022-05-10] MEDS: OLANZapine 5 MG TAB PO SCH ×3 (08:35→22:01)
[2022-05-10] MEDS: BANZEL 400 MG PO SCH ×2 (08:38→22:01)
[2022-05-10] MEDS ORDERED: INFLUENZA QUADRIVALENT PF VACCINE 0.5ML SYRINGE IM ONE (09:00)
[2022-05-10] MEDS ORDERED: MOM 30ML SUSPENSION UDC PO PRN (09:55)
[2022-05-10 10:50] LABS: BASO % 0.6 % (0.0-1.0); EOS # 0.2 10^3/uL (0.0-0.5); HEMATOCRIT 38.9 % (36.0-47.0); HEMOGLOBIN 12.9 g/dl (12.0-15.5); LYMPH # 2.2 10^3/uL (1.5-5.0); LYMPH % 31.4 % (24.0-44.0); MEAN CORPUSCULAR HEMOGLOBIN 31.6 pg (27.0-33.0); MEAN CORPUSCULAR HGB CONC 33.2 g/dl (32.0-36.5); MEAN CORPUSCULAR VOLUME 95.3 fl (80.0-96.0); MONO # 0.6 10^3/uL (0.0-0.8); MONO % 9.1 % (2.0-8.0); NEUTROPHILS # 3.8 10^3/uL (1.5-8.5); NEUTROPHILS % 55.6 % (36.0-66.0); PLATELET COUNT, AUTOMATED 197 10^3/uL (150-450); RED BLOOD COUNT 4.08 10^6/uL (4.00-5.40); WHITE BLOOD COUNT 6.9 10^3/uL (4.0-10.0)
[2022-05-10 11:10] LABS: BLOOD UREA NITROGEN 15 MG/DL (9-23); CALCIUM LEVEL 9.2 MG/DL (8.5-10.1); CARBON DIOXIDE LEVEL 28 MMOL/L (20-31); CHLORIDE LEVEL 105 MMOL/L (98-107); CREATININE FOR GFR 0.53 MG/DL (0.55-1.30); GLOMERULAR FILTRATION RATE > 60.0 (>60); GLUCOSE, FASTING 103 MG/DL (60-100); POTASSIUM SERUM 4.2 MMOL/L (3.5-5.1); SODIUM LEVEL 140 MMOL/L (136-145)
[2022-05-10] MEDS: SENOKOT S TAB PO SCH (22:00)
[2022-05-11 05:32] VITALS: BP 118/78
[2022-05-11] MEDS: diazePAM 10MG/2ML SYRINGE IM PRN (08:10)
[2022-05-11] MEDS: SERTRALINE 100 MG TAB PO SCH (08:24)
[2022-05-11] MEDS: SENOKOT S TAB PO SCH ×2 (08:24→22:38)
[2022-05-11] MEDS: OLANZapine 5 MG TAB PO SCH ×3 (08:25→22:38)
[2022-05-11] MEDS: BANZEL 400 MG PO SCH ×2 (08:25→22:38)
[2022-05-11] MEDS: LORazepam 2 MG TAB PO PRN (09:55)
[2022-05-12 05:50] VITALS: BP 117/78
[2022-05-12] MEDS: diphenhydrAMINE 50MG/ML VIAL IM PRN (08:51)
[2022-05-12] MEDS: diazePAM 10MG/2ML SYRINGE IM PRN (08:51)
[2022-05-12] MEDS: SERTRALINE 100 MG TAB PO SCH (09:02)
[2022-05-12] MEDS: SENOKOT S TAB PO SCH ×2 (09:02→22:37)
[2022-05-12] MEDS: OLANZapine 5 MG TAB PO SCH ×3 (09:02→22:38)
[2022-05-12] MEDS: LORazepam 2 MG TAB PO PRN ×2 (09:02→11:08)
[2022-05-12] MEDS: BANZEL 400 MG PO SCH ×2 (09:03→22:37)
[2022-05-12] MEDS: LACTULOSE 20GM/30ML SYRUP UDC PO SCH ×2 (15:47→22:37)
[2022-05-13] MEDS ORDERED: BISACODYL 10MG SUPP PR PRN (01:50)
[2022-05-13 06:00] VITALS: BP 123/80
[2022-05-13] MEDS: LACTULOSE 20GM/30ML SYRUP UDC PO SCH ×3 (08:56→19:26)
[2022-05-13] MEDS: BANZEL 400 MG PO SCH ×3 (09:00→20:32)
[2022-05-13] MEDS: SENOKOT S TAB PO SCH ×2 (09:00→19:55)
[2022-05-13] MEDS: LORazepam 2 MG TAB PO PRN ×3 (09:03→15:17)
[2022-05-13] MEDS: SERTRALINE 100 MG TAB PO SCH (09:04)
[2022-05-13] MEDS: OLANZapine 5 MG TAB PO SCH ×3 (09:06→19:55)
[2022-05-13] MEDS: diphenhydrAMINE 50MG/ML VIAL IM PRN (15:48)
[2022-05-13] MEDS: diazePAM 10MG/2ML SYRINGE IM PRN (15:48)
[2022-05-14] MEDS: LORazepam 2 MG TAB PO PRN ×4 (03:36→17:21)
[2022-05-14] MEDS: ACETAMINOPHEN TAB 650MG DOSE (2X325MG) PO PRN (03:37)
[2022-05-14 06:00] VITALS: BP 123/79
[2022-05-14] MEDS: diazePAM 10MG/2ML SYRINGE IM PRN (07:40)
[2022-05-14] MEDS: diphenhydrAMINE 50MG/ML VIAL IM PRN (07:40)
[2022-05-14] MEDS: SERTRALINE 100 MG TAB PO SCH (09:14)
[2022-05-14] MEDS: SENOKOT S TAB PO SCH ×2 (09:15→20:08)
[2022-05-14] MEDS: OLANZapine 5 MG TAB PO SCH ×3 (09:15→20:08)
[2022-05-14] MEDS: BANZEL 400 MG PO SCH ×2 (09:16→20:09)
[2022-05-15] MEDS: LORazepam 2 MG TAB PO PRN ×3 (03:45→12:48)
[2022-05-15 06:00] VITALS: BP 117/67
[2022-05-15 06:09] LABS: BASO % 0.4 % (0.0-1.0); EOS # 0.4 10^3/uL (0.0-0.5); EOS % 5.6 % (0.0-3.0); HEMATOCRIT 38.1 % (36.0-47.0); HEMOGLOBIN 12.4 g/dl (12.0-15.5); LYMPH # 2.1 10^3/uL (1.5-5.0); LYMPH % 29.6 % (24.0-44.0); MEAN CORPUSCULAR HEMOGLOBIN 31.3 pg (27.0-33.0); MEAN CORPUSCULAR HGB CONC 32.5 g/dl (32.0-36.5); MEAN CORPUSCULAR VOLUME 96.2 fl (80.0-96.0); MONO # 0.7 10^3/uL (0.0-0.8); MONO % 9.6 % (2.0-8.0); NEUTROPHILS # 3.8 10^3/uL (1.5-8.5); NEUTROPHILS % 54.2 % (36.0-66.0); PLATELET COUNT, AUTOMATED 204 10^3/uL (150-450); RED BLOOD COUNT 3.96 10^6/uL (4.00-5.40)
[2022-05-15] MEDS: SENOKOT S TAB PO SCH ×2 (08:45→21:00)
[2022-05-15] MEDS: OLANZapine 5 MG TAB PO SCH ×2 (08:45→14:53)
[2022-05-15] MEDS: SERTRALINE 100 MG TAB PO SCH (08:46)
[2022-05-15] MEDS: BANZEL 400 MG PO SCH (08:49)
[2022-05-15] MEDS: diphenhydrAMINE 50MG/ML VIAL IM PRN ×2 (13:57→15:30)
[2022-05-15] MEDS: diazePAM 10MG/2ML SYRINGE IM PRN (13:57)
[2022-05-15] MEDS ORDERED: HALOPERIDOL 5MG/ML 1ML VIAL IM STA (15:02)
[2022-05-15] MEDS ORDERED: LORazepam 2 MG/ML 1ML VIAL As Ordered ONE (15:28)
[2022-05-15] MEDS ORDERED: LORazepam 2 MG/ML 1ML VIAL IM STA (15:31)
[2022-05-16] VITALS (9 sets, daily range): BP systolic 102–118; BP diastolic 67–76
[2022-05-16] MEDS: OLANZapine 5 MG TAB PO SCH ×4 (01:06→23:14)
[2022-05-16] MEDS: BANZEL 400 MG PO SCH ×3 (01:07→23:15)
[2022-05-16] MEDS: LORazepam 2 MG TAB PO PRN ×3 (01:12→17:27)
[2022-05-16] MEDS: diphenhydrAMINE 50MG/ML VIAL IM PRN (01:38)
[2022-05-16] MEDS: diazePAM 10MG/2ML SYRINGE IM PRN (01:39)
[2022-05-16] MEDS ORDERED: OLANZapine INTRAMUSCULAR 10MG VIAL IM ONE (02:45)
[2022-05-16] MEDS: SERTRALINE 100 MG TAB PO SCH (08:25)
[2022-05-16] MEDS: SENOKOT S TAB PO SCH ×2 (08:25→23:14)
[2022-05-17] VITALS (7 sets, daily range): BP systolic 105–144; BP diastolic 63–85
[2022-05-17] MEDS: LORazepam 2 MG TAB PO PRN ×2 (05:21→08:12)
[2022-05-17] MEDS: diphenhydrAMINE 50MG/ML VIAL IM PRN (05:50)
[2022-05-17] MEDS: diazePAM 10MG/2ML SYRINGE IM PRN (05:51)
[2022-05-17] MEDS: OLANZapine 5 MG TAB PO SCH ×3 (08:11→20:34)
[2022-05-17] MEDS: SERTRALINE 100 MG TAB PO SCH (08:12)
[2022-05-17] MEDS: SENOKOT S TAB PO SCH ×2 (08:12→20:34)
[2022-05-17] MEDS: BANZEL 400 MG PO SCH ×2 (08:12→20:37)
[2022-05-17 09:52] LABS: BASO # 0.1 10^3/uL (0.0-0.2); BASO % 0.6 % (0.0-1.0); EOS # 0.3 10^3/uL (0.0-0.5); EOS % 2.9 % (0.0-3.0); HEMATOCRIT 40.7 % (36.0-47.0); HEMOGLOBIN 13.3 g/dl (12.0-15.5); LYMPH # 2.1 10^3/uL (1.5-5.0); LYMPH % 22.1 % (24.0-44.0); MEAN CORPUSCULAR HEMOGLOBIN 31.2 pg (27.0-33.0); MEAN CORPUSCULAR HGB CONC 32.7 g/dl (32.0-36.5); MEAN CORPUSCULAR VOLUME 95.5 fl (80.0-96.0); MONO # 0.7 10^3/uL (0.0-0.8); MONO % 6.9 % (2.0-8.0); NEUTROPHILS # 6.4 10^3/uL (1.5-8.5); NEUTROPHILS % 67.1 % (36.0-66.0); PLATELET COUNT, AUTOMATED 218 10^3/uL (150-450); RED BLOOD COUNT 4.26 10^6/uL (4.00-5.40); WHITE BLOOD COUNT 9.5 10^3/uL (4.0-10.0)
[2022-05-17 10:17] LABS: BLOOD UREA NITROGEN 15 MG/DL (9-23); CALCIUM LEVEL 9.4 MG/DL (8.5-10.1); CARBON DIOXIDE LEVEL 27 MMOL/L (20-31); CHLORIDE LEVEL 107 MMOL/L (98-107); CREATININE FOR GFR 0.58 MG/DL (0.55-1.30); GLOMERULAR FILTRATION RATE > 60.0 (>60); GLUCOSE, FASTING 120 MG/DL (60-100); POTASSIUM SERUM 3.9 MMOL/L (3.5-5.1); SODIUM LEVEL 141 MMOL/L (136-145)
[2022-05-17 22:48] LABS: HEPATITIS B SURFACE ANTIGEN NEGATIVE (NEGATIVE)
[2022-05-17 23:45] LABS: HIV SCREEN CENTAUR SOURCE NEGATIVE (NEGATIVE)
[2022-05-18] MEDS: SENOKOT S TAB PO SCH ×2 (07:17→19:53)
[2022-05-18] MEDS: SERTRALINE 100 MG TAB PO SCH (07:18)
[2022-05-18] MEDS: LORazepam 2 MG TAB PO PRN (07:19)
[2022-05-18] MEDS: OLANZapine 5 MG TAB PO SCH ×3 (07:19→19:54)
[2022-05-18] MEDS: BANZEL 400 MG PO SCH ×2 (07:21→19:54)
[2022-05-18] MEDS: ACETAMINOPHEN TAB 650MG DOSE (2X325MG) PO PRN (13:47)
[2022-05-19] MEDS: SERTRALINE 100 MG TAB PO SCH (08:14)
[2022-05-19] MEDS: OLANZapine 5 MG TAB PO SCH ×3 (08:14→20:04)
[2022-05-19] MEDS: SENOKOT S TAB PO SCH ×2 (08:14→20:04)
[2022-05-19] MEDS: BANZEL 400 MG PO SCH ×2 (08:15→20:05)
[2022-05-19] MEDS: ACETAMINOPHEN TAB 650MG DOSE (2X325MG) PO PRN (08:43)
[2022-05-19] MEDS: diphenhydrAMINE 50MG/ML VIAL IM PRN (14:06)
[2022-05-19] MEDS: diazePAM 10MG/2ML SYRINGE IM PRN (14:06)
[2022-05-19 14:35] VITALS: BP 133/90
[2022-05-19 14:50] VITALS: BP 110/74
[2022-05-19 14:53] VITALS: BP 110/74
[2022-05-19] MEDS: LORazepam 2 MG TAB PO PRN (20:05)
[2022-05-20] MEDS: ONDANSETRON 4MG ORAL DISINTEGRATING TAB PO PRN (07:55)
[2022-05-20] MEDS ORDERED: METOCLOPRAMIDE 5 MG TAB PO PRN (08:00)
[2022-05-20] MEDS: OLANZapine 5 MG TAB PO SCH ×3 (08:47→20:14)
[2022-05-20] MEDS: SENOKOT S TAB PO SCH ×2 (08:47→20:13)
[2022-05-20] MEDS: SERTRALINE 100 MG TAB PO SCH (08:47)
[2022-05-20] MEDS: BANZEL 400 MG PO SCH ×2 (08:49→20:14)
[2022-05-20] MEDS: LORazepam 2 MG TAB PO PRN (20:14)
[2022-05-21 06:00] VITALS: BP 117/75
[2022-05-21] MEDS: SENOKOT S TAB PO SCH ×2 (09:00→21:00)
[2022-05-21] MEDS: SERTRALINE 100 MG TAB PO SCH (10:06)
[2022-05-21] MEDS: OLANZapine 5 MG TAB PO SCH ×3 (10:06→21:12)
[2022-05-21] MEDS: BANZEL 400 MG PO SCH ×2 (10:07→21:13)
[2022-05-21] MEDS: ONDANSETRON 4MG ORAL DISINTEGRATING TAB PO PRN (12:21)
[2022-05-22 06:00] VITALS: BP 122/77
[2022-05-22] MEDS: LORazepam 2 MG TAB PO PRN (07:49)
[2022-05-22] MEDS: SENOKOT S TAB PO SCH ×2 (08:55→22:14)
[2022-05-22] MEDS: OLANZapine 5 MG TAB PO SCH ×3 (08:55→22:14)
[2022-05-22] MEDS: SERTRALINE 100 MG TAB PO SCH (08:55)
[2022-05-22] MEDS: diazePAM 10MG/2ML SYRINGE IM PRN (09:08)
[2022-05-22] MEDS: diphenhydrAMINE 50MG/ML VIAL IM PRN (09:08)
[2022-05-22] MEDS: BANZEL 400 MG PO SCH ×2 (09:19→22:18)
[2022-05-23 06:00] VITALS: BP 109/78
[2022-05-23] MEDS: OLANZapine 5 MG TAB PO SCH ×3 (08:49→19:58)
[2022-05-23] MEDS: SENOKOT S TAB PO SCH ×2 (08:50→19:58)
[2022-05-23] MEDS: LORazepam 2 MG TAB PO PRN (08:50)
[2022-05-23] MEDS: ACETAMINOPHEN TAB 650MG DOSE (2X325MG) PO PRN (08:50)
[2022-05-23] MEDS: BANZEL 400 MG PO SCH ×2 (08:51→19:57)
[2022-05-23] MEDS: SERTRALINE 100 MG TAB PO SCH (08:51)
[2022-05-23 09:37] LABS: BASO % 0.4 % (0.0-1.0); EOS # 0.3 10^3/uL (0.0-0.5); EOS % 4.4 % (0.0-3.0); HEMATOCRIT 39.4 % (36.0-47.0); HEMOGLOBIN 13.1 g/dl (12.0-15.5); LYMPH # 1.8 10^3/uL (1.5-5.0); LYMPH % 23.9 % (24.0-44.0); MEAN CORPUSCULAR HEMOGLOBIN 31.5 pg (27.0-33.0); MEAN CORPUSCULAR HGB CONC 33.2 g/dl (32.0-36.5); MEAN CORPUSCULAR VOLUME 94.7 fl (80.0-96.0); MONO # 0.5 10^3/uL (0.0-0.8); MONO % 6.7 % (2.0-8.0); NEUTROPHILS # 4.9 10^3/uL (1.5-8.5); NEUTROPHILS % 64.5 % (36.0-66.0); PLATELET COUNT, AUTOMATED 212 10^3/uL (150-450); RED BLOOD COUNT 4.16 10^6/uL (4.00-5.40); WHITE BLOOD COUNT 7.6 10^3/uL (4.0-10.0)
[2022-05-24 06:53] VITALS: BP 111/73
[2022-05-24 09:33] LABS: BASO # 0.1 10^3/uL (0.0-0.2); BASO % 0.8 % (0.0-1.0); EOS # 0.4 10^3/uL (0.0-0.5); EOS % 5.1 % (0.0-3.0); HEMATOCRIT 42.1 % (36.0-47.0); HEMOGLOBIN 13.7 g/dl (12.0-15.5); LYMPH # 1.8 10^3/uL (1.5-5.0); LYMPH % 22.8 % (24.0-44.0); MEAN CORPUSCULAR HEMOGLOBIN 31.1 pg (27.0-33.0); MEAN CORPUSCULAR HGB CONC 32.5 g/dl (32.0-36.5); MEAN CORPUSCULAR VOLUME 95.5 fl (80.0-96.0); MONO # 0.6 10^3/uL (0.0-0.8); MONO % 7.4 % (2.0-8.0); NEUTROPHILS % 63.4 % (36.0-66.0); PLATELET COUNT, AUTOMATED 233 10^3/uL (150-450); RED BLOOD COUNT 4.41 10^6/uL (4.00-5.40); WHITE BLOOD COUNT 7.9 10^3/uL (4.0-10.0)
[2022-05-24] MEDS: SENOKOT S TAB PO SCH ×2 (09:40→20:05)
[2022-05-24] MEDS: SERTRALINE 100 MG TAB PO SCH (09:40)
[2022-05-24] MEDS: OLANZapine 5 MG TAB PO SCH ×3 (09:40→20:05)
[2022-05-24] MEDS: BANZEL 400 MG PO SCH ×2 (09:41→20:04)
[2022-05-24 10:07] LABS: BLOOD UREA NITROGEN 16 MG/DL (9-23); CALCIUM LEVEL 9.5 MG/DL (8.5-10.1); CARBON DIOXIDE LEVEL 24 MMOL/L (20-31); CHLORIDE LEVEL 106 MMOL/L (98-107); CREATININE FOR GFR 0.54 MG/DL (0.55-1.30); GLOMERULAR FILTRATION RATE > 60.0 (>60); GLUCOSE, FASTING 90 MG/DL (60-100); SODIUM LEVEL 142 MMOL/L (136-145)
[2022-05-24] MEDS: LORazepam 2 MG TAB PO PRN (17:30)
[2022-05-25 06:00] VITALS: BP 117/78
[2022-05-25] MEDS: SENOKOT S TAB PO SCH ×2 (07:55→21:35)
[2022-05-25] MEDS: OLANZapine 5 MG TAB PO SCH ×3 (07:55→21:35)
[2022-05-25] MEDS: BANZEL 400 MG PO SCH ×2 (07:55→21:36)
[2022-05-25] MEDS: SERTRALINE 100 MG TAB PO SCH (07:56)
[2022-05-26 06:00] VITALS: BP 117/78
[2022-05-26] MEDS: SERTRALINE 100 MG TAB PO SCH (08:58)
[2022-05-26] MEDS: OLANZapine 5 MG TAB PO SCH ×3 (08:58→21:18)
[2022-05-26] MEDS: SENOKOT S TAB PO SCH ×2 (08:58→21:18)
[2022-05-26] MEDS: BANZEL 400 MG PO SCH ×2 (09:00→21:18)
[2022-05-27 06:00] VITALS: BP 116/79
[2022-05-27] MEDS: OLANZapine 5 MG TAB PO SCH ×3 (08:14→20:47)
[2022-05-27] MEDS: LORazepam 2 MG TAB PO PRN ×2 (08:14→18:01)
[2022-05-27] MEDS: SERTRALINE 100 MG TAB PO SCH (08:14)
[2022-05-27] MEDS: SENOKOT S TAB PO SCH ×2 (08:16→20:46)
[2022-05-27] MEDS: ACETAMINOPHEN TAB 650MG DOSE (2X325MG) PO PRN (08:17)
[2022-05-27] MEDS: BANZEL 400 MG PO SCH ×2 (08:17→20:47)
[2022-05-27] MEDS ORDERED: ONDANSETRON 4MG TAB PO ONE (17:55)
[2022-05-28 06:00] VITALS: BP 112/77
[2022-05-28] MEDS: SERTRALINE 100 MG TAB PO SCH (08:53)
[2022-05-28] MEDS: OLANZapine 5 MG TAB PO SCH ×3 (08:53→20:05)
[2022-05-28] MEDS: SENOKOT S TAB PO SCH ×2 (08:54→20:05)
[2022-05-28] MEDS: BANZEL 400 MG PO SCH ×2 (08:55→20:07)
[2022-05-28] MEDS ORDERED: PILL CUTTER 1 EACH XX PRN (16:05)
[2022-05-28] MEDS: LORazepam 2 MG TAB PO PRN (20:06)
[2022-05-29 06:00] VITALS: BP 113/72
[2022-05-29] MEDS: SENOKOT S TAB PO SCH ×2 (09:00→21:00)
[2022-05-29] MEDS: ONDANSETRON 4MG ORAL DISINTEGRATING TAB PO PRN (09:22)
[2022-05-29] MEDS: OLANZapine 5 MG TAB PO SCH ×3 (10:22→20:13)
[2022-05-29] MEDS: SERTRALINE 100 MG TAB PO SCH (10:22)
[2022-05-29] MEDS: BANZEL 400 MG PO SCH ×2 (10:22→20:10)
[2022-05-29] MEDS: LORazepam 2 MG TAB PO PRN (20:09)
[2022-05-29] MEDS: ACETAMINOPHEN TAB 650MG DOSE (2X325MG) PO PRN (20:10)
[2022-05-29 21:07] VITALS: BP 109/72
[2022-05-30] MEDS: ACETAMINOPHEN TAB 650MG DOSE (2X325MG) PO PRN (04:12)
[2022-05-30] MEDS: LORazepam 2 MG TAB PO PRN (04:12)
[2022-05-30 06:00] VITALS: BP 111/78
[2022-05-30] MEDS: SERTRALINE 100 MG TAB PO SCH (08:36)
[2022-05-30] MEDS: OLANZapine 5 MG TAB PO SCH ×3 (08:36→21:08)
[2022-05-30] MEDS: SENOKOT S TAB PO SCH (08:37)
[2022-05-30] MEDS: BANZEL 400 MG PO SCH ×2 (08:37→21:09)
[2022-05-30 10:47] LABS: HEMATOCRIT 41.2 % (36.0-47.0); HEMOGLOBIN 13.4 g/dl (12.0-15.5); MEAN CORPUSCULAR HEMOGLOBIN 30.9 pg (27.0-33.0); MEAN CORPUSCULAR HGB CONC 32.5 g/dl (32.0-36.5); MEAN CORPUSCULAR VOLUME 95.2 fl (80.0-96.0); PLATELET COUNT, AUTOMATED 216 10^3/uL (150-450); RED BLOOD COUNT 4.33 10^6/uL (4.00-5.40); WHITE BLOOD COUNT 10.5 10^3/uL (4.0-10.0)
[2022-05-30 11:20] LABS: MAGNESIUM LEVEL 1.8 MG/DL (1.8-2.4)
[2022-05-30 11:55] LABS: ALKALINE PHOSPHATASE 107 U/L (46-116); ALT/SGPT 38 U/L (7.0-40); AST/SGOT 26 U/L (<34); BILIRUBIN,TOTAL 0.3 MG/DL (0.3-1.2); BLOOD UREA NITROGEN 13 MG/DL (9-23); CALCIUM LEVEL 9.6 MG/DL (8.5-10.1); CARBON DIOXIDE LEVEL 30 MMOL/L (20-31); CHLORIDE LEVEL 104 MMOL/L (98-107); CREATININE FOR GFR 0.55 MG/DL (0.55-1.30); GLOMERULAR FILTRATION RATE > 60.0 (>60); GLUCOSE, FASTING 82 MG/DL (60-100); POTASSIUM SERUM 4.2 MMOL/L (3.5-5.1); SODIUM LEVEL 140 MMOL/L (136-145); TOTAL PROTEIN 6.8 G/DL (5.7-8.2)
[2022-05-31] MEDS ORDERED: CEPACOL LOZENGE PO PRN (05:45)
[2022-05-31 06:00] VITALS: BP 112/77
[2022-05-31] MEDS: ONDANSETRON 4MG ORAL DISINTEGRATING TAB PO PRN (08:56)
[2022-05-31 10:01] LABS: BASO # 0.1 10^3/uL (0.0-0.2); BASO % 0.6 % (0.0-1.0); EOS # 0.6 10^3/uL (0.0-0.5); EOS % 6.6 % (0.0-3.0); HEMATOCRIT 41.4 % (36.0-47.0); HEMOGLOBIN 13.6 g/dl (12.0-15.5); LYMPH % 21.1 % (24.0-44.0); MEAN CORPUSCULAR HEMOGLOBIN 31.3 pg (27.0-33.0); MEAN CORPUSCULAR HGB CONC 32.9 g/dl (32.0-36.5); MEAN CORPUSCULAR VOLUME 95.4 fl (80.0-96.0); MONO # 0.8 10^3/uL (0.0-0.8); MONO % 8.1 % (2.0-8.0); NEUTROPHILS % 63.3 % (36.0-66.0); PLATELET COUNT, AUTOMATED 216 10^3/uL (150-450); RED BLOOD COUNT 4.34 10^6/uL (4.00-5.40); WHITE BLOOD COUNT 9.5 10^3/uL (4.0-10.0)
[2022-05-31 10:26] LABS: BLOOD UREA NITROGEN 14 MG/DL (9-23); CALCIUM LEVEL 9.3 MG/DL (8.5-10.1); CARBON DIOXIDE LEVEL 28 MMOL/L (20-31); CHLORIDE LEVEL 106 MMOL/L (98-107); CREATININE FOR GFR 0.55 MG/DL (0.55-1.30); GLOMERULAR FILTRATION RATE > 60.0 (>60); GLUCOSE, FASTING 97 MG/DL (60-100); SODIUM LEVEL 142 MMOL/L (136-145)
[2022-05-31] MEDS: OLANZapine 5 MG TAB PO SCH ×3 (10:53→20:58)
[2022-05-31] MEDS: SERTRALINE 100 MG TAB PO SCH (10:58)
[2022-05-31] MEDS: BANZEL 400 MG PO SCH ×2 (11:04→21:00)
[2022-05-31] MEDS ORDERED: GI COCKTAIL 50ML BTL(HYOSCYAMINE/MAALOX/LIDOCAINE VISCOUS)(1:3:1) PO PRN (12:55)
[2022-05-31] MEDS: PANTOPRAZOLE 40MG TAB (PROTONIX) PO SCH (14:12)
[2022-06-01 06:00] VITALS: BP 100/70
[2022-06-01] MEDS: OLANZapine 5 MG TAB PO SCH ×3 (10:00→21:04)
[2022-06-01] MEDS: PANTOPRAZOLE 40MG TAB (PROTONIX) PO SCH (10:00)
[2022-06-01] MEDS: SERTRALINE 100 MG TAB PO SCH (10:00)
[2022-06-01] MEDS: BANZEL 400 MG PO SCH ×2 (10:01→21:05)
[2022-06-02] MEDS: BANZEL 400 MG PO SCH ×2 (07:21→19:38)
[2022-06-02] MEDS: SERTRALINE 100 MG TAB PO SCH (07:21)
[2022-06-02] MEDS: OLANZapine 5 MG TAB PO SCH ×3 (07:22→19:37)
[2022-06-02] MEDS: PANTOPRAZOLE 40MG TAB (PROTONIX) PO SCH (07:22)
[2022-06-03] MEDS: BANZEL 400 MG PO SCH ×2 (07:30→21:28)
[2022-06-03] MEDS: OLANZapine 5 MG TAB PO SCH ×3 (07:31→21:26)
[2022-06-03] MEDS: SERTRALINE 100 MG TAB PO SCH (07:32)
[2022-06-03] MEDS: PANTOPRAZOLE 40MG TAB (PROTONIX) PO SCH (07:32)
[2022-06-03] MEDS: LORazepam 2 MG TAB PO PRN (10:49)
[2022-06-04] MEDS: PANTOPRAZOLE 40MG TAB (PROTONIX) PO SCH (10:18)
[2022-06-04] MEDS: OLANZapine 5 MG TAB PO SCH ×3 (10:18→21:14)
[2022-06-04] MEDS: BANZEL 400 MG PO SCH ×2 (10:18→21:14)
[2022-06-04] MEDS: SERTRALINE 100 MG TAB PO SCH (10:18)
[2022-06-05] MEDS: OLANZapine 5 MG TAB PO SCH ×3 (08:06→20:34)
[2022-06-05] MEDS: ACETAMINOPHEN TAB 650MG DOSE (2X325MG) PO PRN (08:06)
[2022-06-05] MEDS: PANTOPRAZOLE 40MG TAB (PROTONIX) PO SCH (08:06)
[2022-06-05] MEDS: SERTRALINE 100 MG TAB PO SCH (08:06)
[2022-06-05] MEDS: BANZEL 400 MG PO SCH ×2 (08:07→20:33)
[2022-06-06] MEDS: OLANZapine 5 MG TAB PO SCH ×2 (09:32→16:18)
[2022-06-06] MEDS: SERTRALINE 100 MG TAB PO SCH (09:32)
[2022-06-06] MEDS: PANTOPRAZOLE 40MG TAB (PROTONIX) PO SCH (09:32)
[2022-06-06] MEDS: BANZEL 400 MG PO SCH ×2 (09:33→20:44)
[2022-06-06] MEDS: ACETAMINOPHEN TAB 650MG DOSE (2X325MG) PO PRN (09:33)
[2022-06-07 05:50] VITALS: BP 102/63
[2022-06-07] MEDS: PANTOPRAZOLE 40MG TAB (PROTONIX) PO SCH (07:55)
[2022-06-07] MEDS: BANZEL 400 MG PO SCH ×2 (07:55→19:27)
[2022-06-07] MEDS: SERTRALINE 100 MG TAB PO SCH (07:55)
[2022-06-07] MEDS: LORazepam 2 MG TAB PO PRN (08:15)
[2022-06-07] MEDS ORDERED: OLANZapine 2.5MG TABLET PO SCH (09:00)
[2022-06-07] MEDS: diazePAM 10MG/2ML SYRINGE IM PRN ×2 (09:32→19:28)
[2022-06-07 14:48] LABS: BASO % 0.5 % (0.0-1.0); EOS # 0.4 10^3/uL (0.0-0.5); EOS % 5.5 % (0.0-3.0); HEMATOCRIT 41.4 % (36.0-47.0); HEMOGLOBIN 13.5 g/dl (12.0-15.5); LYMPH # 2.1 10^3/uL (1.5-5.0); LYMPH % 28.2 % (24.0-44.0); MEAN CORPUSCULAR HEMOGLOBIN 31.1 pg (27.0-33.0); MEAN CORPUSCULAR HGB CONC 32.6 g/dl (32.0-36.5); MEAN CORPUSCULAR VOLUME 95.4 fl (80.0-96.0); MONO # 0.6 10^3/uL (0.0-0.8); MONO % 8.1 % (2.0-8.0); NEUTROPHILS # 4.3 10^3/uL (1.5-8.5); NEUTROPHILS % 57.3 % (36.0-66.0); PLATELET COUNT, AUTOMATED 216 10^3/uL (150-450); RED BLOOD COUNT 4.34 10^6/uL (4.00-5.40); WHITE BLOOD COUNT 7.5 10^3/uL (4.0-10.0)
[2022-06-07 15:17] LABS: BLOOD UREA NITROGEN 13 MG/DL (9-23); CALCIUM LEVEL 9.7 MG/DL (8.5-10.1); CARBON DIOXIDE LEVEL 30 MMOL/L (20-31); CHLORIDE LEVEL 105 MMOL/L (98-107); CREATININE FOR GFR 0.59 MG/DL (0.55-1.30); GLOMERULAR FILTRATION RATE > 60.0 (>60); GLUCOSE, FASTING 94 MG/DL (60-100); POTASSIUM SERUM 4.2 MMOL/L (3.5-5.1); SODIUM LEVEL 142 MMOL/L (136-145)
[2022-06-07] MEDS: JAIMIESS PO SCH (19:28)
[2022-06-08 06:00] VITALS: BP 103/63
[2022-06-08] MEDS: SERTRALINE 100 MG TAB PO SCH (08:56)
[2022-06-08] MEDS: PANTOPRAZOLE 40MG TAB (PROTONIX) PO SCH (08:57)
[2022-06-08] MEDS: BANZEL 400 MG PO SCH ×2 (08:58→20:31)
[2022-06-08] MEDS: diazePAM 10MG/2ML SYRINGE IM PRN (18:11)
[2022-06-08] MEDS: diphenhydrAMINE 50MG/ML VIAL IM PRN (18:52)
[2022-06-08] MEDS: JAIMIESS PO SCH (20:33)
[2022-06-09 06:00] VITALS: BP 117/73
[2022-06-09] MEDS: diphenhydrAMINE 50MG/ML VIAL IM PRN (07:50)
[2022-06-09] MEDS: diazePAM 10MG/2ML SYRINGE IM PRN (07:50)
[2022-06-09] MEDS: PANTOPRAZOLE 40MG TAB (PROTONIX) PO SCH (09:11)
[2022-06-09] MEDS: SERTRALINE 100 MG TAB PO SCH (09:11)
[2022-06-09] MEDS: BANZEL 400 MG PO SCH ×2 (09:11→20:21)
[2022-06-09 10:30] VITALS: BP 125/89
[2022-06-09 10:35] VITALS: BP 125/89
[2022-06-09 10:38] VITALS: BP 125/89
[2022-06-09 11:07] VITALS: BP 114/86
[2022-06-09 11:39] VITALS: BP 115/86
[2022-06-09] MEDS: OLANZapine 2.5MG TABLET PO SCH ×2 (12:20→20:20)
[2022-06-09] MEDS: JAIMIESS PO SCH (20:21)
[2022-06-10 06:00] VITALS: BP 118/68
[2022-06-10] MEDS: BANZEL 400 MG PO SCH ×2 (11:18→20:12)
[2022-06-10] MEDS: PANTOPRAZOLE 40MG TAB (PROTONIX) PO SCH (11:18)
[2022-06-10] MEDS: SERTRALINE 100 MG TAB PO SCH (11:18)
[2022-06-10] MEDS: OLANZapine 2.5MG TABLET PO SCH ×2 (11:18→20:11)
[2022-06-10] MEDS: JAIMIESS PO SCH (20:12)
[2022-06-11 06:00] VITALS: BP 105/70
[2022-06-11] MEDS: PANTOPRAZOLE 40MG TAB (PROTONIX) PO SCH (09:34)
[2022-06-11] MEDS: OLANZapine 2.5MG TABLET PO SCH ×2 (09:34→20:35)
[2022-06-11] MEDS: SERTRALINE 100 MG TAB PO SCH (09:34)
[2022-06-11] MEDS: BANZEL 400 MG PO SCH ×2 (09:37→20:36)
[2022-06-11] MEDS: JAIMIESS PO SCH (20:37)
[2022-06-12 06:00] VITALS: BP 106/71
[2022-06-12] MEDS: PANTOPRAZOLE 40MG TAB (PROTONIX) PO SCH (08:16)
[2022-06-12] MEDS: OLANZapine 2.5MG TABLET PO SCH ×2 (08:16→19:55)
[2022-06-12] MEDS: SERTRALINE 100 MG TAB PO SCH (08:16)
[2022-06-12] MEDS: BANZEL 400 MG PO SCH ×2 (08:17→19:54)
[2022-06-12] MEDS: JAIMIESS PO SCH (19:55)
[2022-06-13 06:30] VITALS: BP 110/71
[2022-06-13 08:09] LABS: CLOZAPINE 1 84 ng/mL (350-650); CLOZAPINE 2 80 ng/mL (Not Estab.); CLOZAPINE 3 164 ng/mL (.)
[2022-06-13] MEDS: OLANZapine 2.5MG TABLET PO SCH ×2 (08:36→20:56)
[2022-06-13] MEDS: SERTRALINE 100 MG TAB PO SCH (08:36)
[2022-06-13] MEDS: PANTOPRAZOLE 40MG TAB (PROTONIX) PO SCH (08:36)
[2022-06-13] MEDS: BANZEL 400 MG PO SCH ×2 (10:03→20:57)
[2022-06-13] MEDS: JAIMIESS PO SCH (20:59)
[2022-06-14 06:00] VITALS: BP 115/76
[2022-06-14] MEDS: PANTOPRAZOLE 40MG TAB (PROTONIX) PO SCH (09:12)
[2022-06-14] MEDS: SERTRALINE 100 MG TAB PO SCH (09:12)
[2022-06-14] MEDS: OLANZapine 2.5MG TABLET PO SCH ×2 (09:12→19:56)
[2022-06-14] MEDS: BANZEL 400 MG PO SCH ×2 (09:13→19:57)
[2022-06-14 09:55] LABS: BASO # 0.1 10^3/uL (0.0-0.2); BASO % 0.7 % (0.0-1.0); EOS # 0.2 10^3/uL (0.0-0.5); EOS % 2.9 % (0.0-3.0); HEMATOCRIT 41.2 % (36.0-47.0); HEMOGLOBIN 13.4 g/dl (12.0-15.5); LYMPH % 25.2 % (24.0-44.0); MEAN CORPUSCULAR HEMOGLOBIN 30.5 pg (27.0-33.0); MEAN CORPUSCULAR HGB CONC 32.5 g/dl (32.0-36.5); MEAN CORPUSCULAR VOLUME 93.8 fl (80.0-96.0); MONO # 0.6 10^3/uL (0.0-0.8); NEUTROPHILS % 62.8 % (36.0-66.0); PLATELET COUNT, AUTOMATED 232 10^3/uL (150-450); RED BLOOD COUNT 4.39 10^6/uL (4.00-5.40)
[2022-06-14 10:22] LABS: BLOOD UREA NITROGEN 14 MG/DL (9-23); CALCIUM LEVEL 9.2 MG/DL (8.5-10.1); CARBON DIOXIDE LEVEL 27 MMOL/L (20-31); CHLORIDE LEVEL 106 MMOL/L (98-107); GLOMERULAR FILTRATION RATE > 60.0 (>60); GLUCOSE, FASTING 92 MG/DL (60-100); POTASSIUM SERUM 4.3 MMOL/L (3.5-5.1); SODIUM LEVEL 143 MMOL/L (136-145)
[2022-06-14] MEDS: JAIMIESS PO SCH (19:58)
[2022-06-15 06:39] VITALS: BP 114/79
[2022-06-15] MEDS: SERTRALINE 100 MG TAB PO SCH (09:19)
[2022-06-15] MEDS: PANTOPRAZOLE 40MG TAB (PROTONIX) PO SCH (09:19)
[2022-06-15] MEDS: OLANZapine 2.5MG TABLET PO SCH ×2 (09:19→20:08)
[2022-06-15] MEDS: BANZEL 400 MG PO SCH ×2 (09:20→20:09)
[2022-06-15] MEDS: JAIMIESS PO SCH (20:11)
[2022-06-16] MEDS: SERTRALINE 100 MG TAB PO SCH (10:12)
[2022-06-16] MEDS: PANTOPRAZOLE 40MG TAB (PROTONIX) PO SCH (10:12)
[2022-06-16] MEDS: OLANZapine 2.5MG TABLET PO SCH ×2 (10:12→20:05)
[2022-06-16] MEDS: BANZEL 400 MG PO SCH ×2 (10:14→20:07)
[2022-06-16] MEDS: JAIMIESS PO SCH (20:07)
[2022-06-17] MEDS: PANTOPRAZOLE 40MG TAB (PROTONIX) PO SCH (09:33)
[2022-06-17] MEDS: SERTRALINE 100 MG TAB PO SCH (09:33)
[2022-06-17] MEDS: OLANZapine 2.5MG TABLET PO SCH ×2 (09:34→20:04)
[2022-06-17] MEDS: BANZEL 400 MG PO SCH ×2 (09:34→20:04)
[2022-06-17] MEDS: JAIMIESS PO SCH (20:05)
[2022-06-18 05:59] VITALS: BP 119/75
[2022-06-18] MEDS: diazePAM 10MG/2ML SYRINGE IM PRN (09:24)
[2022-06-18] MEDS: diphenhydrAMINE 50MG/ML VIAL IM PRN (09:24)
[2022-06-18] MEDS: BANZEL 400 MG PO SCH ×2 (09:36→20:56)
[2022-06-18] MEDS: OLANZapine 2.5MG TABLET PO SCH ×2 (09:36→20:54)
[2022-06-18] MEDS: PANTOPRAZOLE 40MG TAB (PROTONIX) PO SCH (09:36)
[2022-06-18] MEDS: SERTRALINE 100 MG TAB PO SCH (09:48)
[2022-06-18] MEDS: JAIMIESS PO SCH (20:55)
[2022-06-19 06:00] VITALS: BP 110/73
[2022-06-19] MEDS: SERTRALINE 100 MG TAB PO SCH (08:59)
[2022-06-19] MEDS: OLANZapine 2.5MG TABLET PO SCH ×2 (08:59→20:43)
[2022-06-19] MEDS: PANTOPRAZOLE 40MG TAB (PROTONIX) PO SCH (08:59)
[2022-06-19] MEDS: BANZEL 400 MG PO SCH ×2 (09:00→20:44)
[2022-06-19] MEDS: JAIMIESS PO SCH (20:45)
[2022-06-20 06:00] VITALS: BP 109/72
[2022-06-20] MEDS: BANZEL 400 MG PO SCH ×2 (10:03→20:18)
[2022-06-20] MEDS: SERTRALINE 100 MG TAB PO SCH (10:04)
[2022-06-20] MEDS: PANTOPRAZOLE 40MG TAB (PROTONIX) PO SCH (10:04)
[2022-06-20] MEDS: OLANZapine 2.5MG TABLET PO SCH ×2 (10:04→20:18)
[2022-06-20] MEDS: JAIMIESS PO SCH (20:18)
[2022-06-21 06:00] VITALS: BP 104/68
[2022-06-21 09:33] LABS: BASO % 0.3 % (0.0-1.0); EOS # 0.2 10^3/uL (0.0-0.5); EOS % 1.3 % (0.0-3.0); HEMATOCRIT 40.4 % (36.0-47.0); HEMOGLOBIN 13.3 g/dl (12.0-15.5); LYMPH % 16.6 % (24.0-44.0); MEAN CORPUSCULAR HEMOGLOBIN 30.9 pg (27.0-33.0); MEAN CORPUSCULAR HGB CONC 32.9 g/dl (32.0-36.5); MONO # 0.7 10^3/uL (0.0-0.8); MONO % 5.3 % (2.0-8.0); NEUTROPHILS # 9.3 10^3/uL (1.5-8.5); NEUTROPHILS % 76.3 % (36.0-66.0); PLATELET COUNT, AUTOMATED 226 10^3/uL (150-450); WHITE BLOOD COUNT 12.2 10^3/uL (4.0-10.0)
[2022-06-21] MEDS: BANZEL 400 MG PO SCH ×2 (09:47→20:16)
[2022-06-21] MEDS: SERTRALINE 100 MG TAB PO SCH (09:48)
[2022-06-21] MEDS: PANTOPRAZOLE 40MG TAB (PROTONIX) PO SCH (09:48)
[2022-06-21] MEDS: OLANZapine 2.5MG TABLET PO SCH ×2 (09:48→20:15)
[2022-06-21 09:56] LABS: BLOOD UREA NITROGEN 11 MG/DL (9-23); CALCIUM LEVEL 8.8 MG/DL (8.5-10.1); CARBON DIOXIDE LEVEL 26 MMOL/L (20-31); CHLORIDE LEVEL 107 MMOL/L (98-107); CREATININE FOR GFR 0.53 MG/DL (0.55-1.30); GLOMERULAR FILTRATION RATE > 60.0 (>60); GLUCOSE, FASTING 101 MG/DL (60-100); POTASSIUM SERUM 4.1 MMOL/L (3.5-5.1); SODIUM LEVEL 141 MMOL/L (136-145)
[2022-06-21] MEDS: JAIMIESS PO SCH (20:18)
[2022-06-22 06:00] VITALS: BP 101/64
[2022-06-22] MEDS: OLANZapine 2.5MG TABLET PO SCH ×2 (09:29→20:03)
[2022-06-22] MEDS: SERTRALINE 100 MG TAB PO SCH (09:29)
[2022-06-22] MEDS: PANTOPRAZOLE 40MG TAB (PROTONIX) PO SCH (09:29)
[2022-06-22] MEDS: BANZEL 400 MG PO SCH ×2 (09:30→20:05)
[2022-06-22] MEDS: JAIMIESS PO SCH (20:05)
[2022-06-23 06:00] VITALS: BP 110/65
[2022-06-23] MEDS: BANZEL 400 MG PO SCH ×2 (09:12→20:27)
[2022-06-23] MEDS: SERTRALINE 100 MG TAB PO SCH (09:12)
[2022-06-23] MEDS: OLANZapine 2.5MG TABLET PO SCH ×2 (09:12→20:26)
[2022-06-23] MEDS: PANTOPRAZOLE 40MG TAB (PROTONIX) PO SCH (09:12)
[2022-06-23] MEDS: JAIMIESS PO SCH (20:28)
[2022-06-24 06:00] VITALS: BP 111/66
[2022-06-24] MEDS: BANZEL 400 MG PO SCH ×2 (08:00→20:37)
[2022-06-24] MEDS: OLANZapine 2.5MG TABLET PO SCH ×2 (08:01→20:37)
[2022-06-24] MEDS: SERTRALINE 100 MG TAB PO SCH (08:01)
[2022-06-24] MEDS: PANTOPRAZOLE 40MG TAB (PROTONIX) PO SCH (08:01)
[2022-06-24] MEDS: JAIMIESS PO SCH (20:38)
[2022-06-25 06:00] VITALS: BP 110/67
[2022-06-25] MEDS: SERTRALINE 100 MG TAB PO SCH (09:47)
[2022-06-25] MEDS: OLANZapine 2.5MG TABLET PO SCH ×2 (09:47→20:22)
[2022-06-25] MEDS: PANTOPRAZOLE 40MG TAB (PROTONIX) PO SCH (09:47)
[2022-06-25] MEDS: BANZEL 400 MG PO SCH ×2 (09:48→20:22)
[2022-06-25] MEDS: JAIMIESS PO SCH (20:23)
[2022-06-26 06:00] VITALS: BP 109/67
[2022-06-26] MEDS: OLANZapine 2.5MG TABLET PO SCH ×2 (09:44→20:50)
[2022-06-26] MEDS: PANTOPRAZOLE 40MG TAB (PROTONIX) PO SCH (09:44)
[2022-06-26] MEDS: BANZEL 400 MG PO SCH ×2 (09:44→20:51)
[2022-06-26] MEDS: SERTRALINE 100 MG TAB PO SCH (09:44)
[2022-06-26] MEDS: JAIMIESS PO SCH (20:51)
[2022-06-27 06:00] VITALS: BP 123/80
[2022-06-27] MEDS: OLANZapine 2.5MG TABLET PO SCH ×2 (08:10→20:36)
[2022-06-27] MEDS: SERTRALINE 100 MG TAB PO SCH (08:10)
[2022-06-27] MEDS: PANTOPRAZOLE 40MG TAB (PROTONIX) PO SCH (08:10)
[2022-06-27] MEDS: BANZEL 400 MG PO SCH ×2 (08:10→20:37)
[2022-06-27] MEDS: JAIMIESS PO SCH (20:37)
[2022-06-28 06:00] VITALS: BP 117/68
[2022-06-28] MEDS: BANZEL 400 MG PO SCH ×2 (09:16→20:56)
[2022-06-28] MEDS: PANTOPRAZOLE 40MG TAB (PROTONIX) PO SCH (09:16)
[2022-06-28] MEDS: SERTRALINE 100 MG TAB PO SCH (09:16)
[2022-06-28] MEDS: OLANZapine 2.5MG TABLET PO SCH (09:16)
[2022-06-28] MEDS: JAIMIESS PO SCH (20:56)
[2022-06-29 06:00] VITALS: BP 93/60
[2022-06-29 06:00] LABS: BASO # 0.1 10^3/uL (0.0-0.2); BASO % 0.7 % (0.0-1.0); EOS # 0.3 10^3/uL (0.0-0.5); EOS % 4.6 % (0.0-3.0); HEMATOCRIT 40.7 % (36.0-47.0); HEMOGLOBIN 13.2 g/dl (12.0-15.5); LYMPH # 2.7 10^3/uL (1.5-5.0); LYMPH % 36.6 % (24.0-44.0); MEAN CORPUSCULAR HEMOGLOBIN 30.3 pg (27.0-33.0); MEAN CORPUSCULAR HGB CONC 32.4 g/dl (32.0-36.5); MEAN CORPUSCULAR VOLUME 93.3 fl (80.0-96.0); MONO # 0.6 10^3/uL (0.0-0.8); MONO % 7.7 % (2.0-8.0); NEUTROPHILS # 3.7 10^3/uL (1.5-8.5); PLATELET COUNT, AUTOMATED 247 10^3/uL (150-450); RED BLOOD COUNT 4.36 10^6/uL (4.00-5.40); WHITE BLOOD COUNT 7.4 10^3/uL (4.0-10.0)
[2022-06-29] MEDS: BANZEL 400 MG PO SCH ×2 (09:16→20:20)
[2022-06-29] MEDS: SERTRALINE 100 MG TAB PO SCH (09:17)
[2022-06-29] MEDS: PANTOPRAZOLE 40MG TAB (PROTONIX) PO SCH (09:17)
[2022-06-29 19:48] VITALS: BP 108/73
[2022-06-29] MEDS: JAIMIESS PO SCH (20:21)
[2022-06-30 06:00] VITALS: BP 101/64
[2022-06-30] MEDS: SERTRALINE 100 MG TAB PO SCH (08:58)
[2022-06-30] MEDS: PANTOPRAZOLE 40MG TAB (PROTONIX) PO SCH (08:58)
[2022-06-30] MEDS: BANZEL 400 MG PO SCH ×2 (09:00→21:16)
[2022-06-30] MEDS: JAIMIESS PO SCH (21:15)
[2022-07-01 06:00] VITALS: BP 109/79
[2022-07-01] MEDS: SERTRALINE 100 MG TAB PO SCH (09:32)
[2022-07-01] MEDS: PANTOPRAZOLE 40MG TAB (PROTONIX) PO SCH (09:32)
[2022-07-01] MEDS: BANZEL 400 MG PO SCH ×2 (09:37→20:16)
[2022-07-01] MEDS: JAIMIESS PO SCH (20:16)
[2022-07-02 06:00] VITALS: BP 103/63
[2022-07-02] MEDS: SERTRALINE 100 MG TAB PO SCH (09:07)
[2022-07-02] MEDS: PANTOPRAZOLE 40MG TAB (PROTONIX) PO SCH (09:08)
[2022-07-02] MEDS: BANZEL 400 MG PO SCH ×2 (09:16→20:23)
[2022-07-02] MEDS: JAIMIESS PO SCH (20:23)
[2022-07-03 06:00] VITALS: BP 105/65
[2022-07-03] MEDS: PANTOPRAZOLE 40MG TAB (PROTONIX) PO SCH (13:17)
[2022-07-03] MEDS: BANZEL 400 MG PO SCH ×2 (13:17→20:40)
[2022-07-03] MEDS: SERTRALINE 100 MG TAB PO SCH (13:17)
[2022-07-03] MEDS: JAIMIESS PO SCH (20:40)
[2022-07-04 06:00] VITALS: BP 105/65
[2022-07-04] MEDS: PANTOPRAZOLE 40MG TAB (PROTONIX) PO SCH (10:16)
[2022-07-04] MEDS: SERTRALINE 100 MG TAB PO SCH (10:16)
[2022-07-04] MEDS: BANZEL 400 MG PO SCH ×2 (10:17→20:16)
[2022-07-04 12:31] LABS: BASO # 0.1 10^3/uL (0.0-0.2); BASO % 0.5 % (0.0-1.0); EOS # 0.3 10^3/uL (0.0-0.5); EOS % 2.7 % (0.0-3.0); HEMATOCRIT 43.3 % (36.0-47.0); HEMOGLOBIN 13.6 g/dl (12.0-15.5); LYMPH # 2.1 10^3/uL (1.5-5.0); LYMPH % 23.1 % (24.0-44.0); MEAN CORPUSCULAR HEMOGLOBIN 29.7 pg (27.0-33.0); MEAN CORPUSCULAR HGB CONC 31.4 g/dl (32.0-36.5); MEAN CORPUSCULAR VOLUME 94.5 fl (80.0-96.0); MONO # 0.6 10^3/uL (0.0-0.8); MONO % 6.1 % (2.0-8.0); NEUTROPHILS # 6.2 10^3/uL (1.5-8.5); NEUTROPHILS % 67.2 % (36.0-66.0); PLATELET COUNT, AUTOMATED 249 10^3/uL (150-450); RED BLOOD COUNT 4.58 10^6/uL (4.00-5.40); WHITE BLOOD COUNT 9.2 10^3/uL (4.0-10.0)
[2022-07-04] MEDS: JAIMIESS PO SCH (20:16)
[2022-07-05 06:57] VITALS: BP 127/79
[2022-07-05] MEDS: PANTOPRAZOLE 40MG TAB (PROTONIX) PO SCH (10:18)
[2022-07-05] MEDS: SERTRALINE 100 MG TAB PO SCH (10:18)
[2022-07-05] MEDS: BANZEL 400 MG PO SCH ×2 (10:20→20:46)
[2022-07-05] MEDS: JAIMIESS PO SCH (20:46)
[2022-07-06 01:41] VITALS: BP 103/65
[2022-07-06] MEDS ORDERED: BENZTROPINE MESYLATE 2MG/2ML VIAL IM ONE (02:00)
[2022-07-06 02:11] LABS: BASO # 0.1 10^3/uL (0.0-0.2); BASO % 0.6 % (0.0-1.0); EOS # 0.3 10^3/uL (0.0-0.5); EOS % 3.6 % (0.0-3.0); HEMATOCRIT 40.8 % (36.0-47.0); HEMOGLOBIN 13.1 g/dl (12.0-15.5); LYMPH # 4.3 10^3/uL (1.5-5.0); LYMPH % 49.3 % (24.0-44.0); MEAN CORPUSCULAR HEMOGLOBIN 30.5 pg (27.0-33.0); MEAN CORPUSCULAR HGB CONC 32.1 g/dl (32.0-36.5); MEAN CORPUSCULAR VOLUME 95.1 fl (80.0-96.0); MONO # 0.6 10^3/uL (0.0-0.8); NEUTROPHILS # 3.4 10^3/uL (1.5-8.5); NEUTROPHILS % 38.9 % (36.0-66.0); PLATELET COUNT, AUTOMATED 232 10^3/uL (150-450); RED BLOOD COUNT 4.29 10^6/uL (4.00-5.40); WHITE BLOOD COUNT 8.7 10^3/uL (4.0-10.0)
[2022-07-06 02:31] LABS: MAGNESIUM LEVEL 1.8 MG/DL (1.8-2.4)
[2022-07-06 02:32] LABS: ALBUMIN 3.4 G/DL (3.2-5.2); ALKALINE PHOSPHATASE 78 U/L (46-116); ALT/SGPT 13 U/L (7.0-40); AST/SGOT 18 U/L (<34); BILIRUBIN,TOTAL 0.2 MG/DL (0.3-1.2); BLOOD UREA NITROGEN 16 MG/DL (9-23); CALCIUM LEVEL 8.9 MG/DL (8.5-10.1); CARBON DIOXIDE LEVEL 24 MMOL/L (20-31); CHLORIDE LEVEL 106 MMOL/L (98-107); CREATININE FOR GFR 0.53 MG/DL (0.55-1.30); GLOMERULAR FILTRATION RATE > 60.0 (>60); GLUCOSE, FASTING 114 MG/DL (60-100); POTASSIUM SERUM 3.7 MMOL/L (3.5-5.1); SODIUM LEVEL 141 MMOL/L (136-145); TOTAL PROTEIN 6.6 G/DL (5.7-8.2)
[2022-07-06] MEDS: PANTOPRAZOLE 40MG TAB (PROTONIX) PO SCH (09:30)
[2022-07-06] MEDS: BANZEL 400 MG PO SCH ×2 (09:31→21:09)
[2022-07-06] MEDS: SERTRALINE 100 MG TAB PO SCH (09:31)
[2022-07-06] MEDS: JAIMIESS PO SCH (21:09)
[2022-07-07 06:00] VITALS: BP 108/69
[2022-07-07] MEDS: PANTOPRAZOLE 40MG TAB (PROTONIX) PO SCH (09:09)
[2022-07-07] MEDS: BANZEL 400 MG PO SCH ×2 (09:09→21:19)
[2022-07-07] MEDS: SERTRALINE 100 MG TAB PO SCH (09:10)
[2022-07-07] MEDS: ACETAMINOPHEN TAB 650MG DOSE (2X325MG) PO PRN (10:35)
[2022-07-07] MEDS: JAIMIESS PO SCH (21:20)
[2022-07-08 06:00] VITALS: BP 108/70
[2022-07-08] MEDS: PANTOPRAZOLE 40MG TAB (PROTONIX) PO SCH (13:11)
[2022-07-08] MEDS: SERTRALINE 100 MG TAB PO SCH (13:11)
[2022-07-08] MEDS: BANZEL 400 MG PO SCH ×2 (13:12→21:27)
[2022-07-08] MEDS: JAIMIESS PO SCH (21:28)
[2022-07-09 06:00] VITALS: BP 112/73
[2022-07-09] MEDS: PANTOPRAZOLE 40MG TAB (PROTONIX) PO SCH (08:31)
[2022-07-09] MEDS: SERTRALINE 100 MG TAB PO SCH (08:32)
[2022-07-09] MEDS: BANZEL 400 MG PO SCH ×2 (08:32→20:48)
[2022-07-09] MEDS: JAIMIESS PO SCH (20:49)
[2022-07-10 06:00] VITALS: BP 109/71
[2022-07-10] MEDS: PANTOPRAZOLE 40MG TAB (PROTONIX) PO SCH (09:52)
[2022-07-10] MEDS: SERTRALINE 100 MG TAB PO SCH (09:52)
[2022-07-10] MEDS: BANZEL 400 MG PO SCH ×2 (09:53→20:55)
[2022-07-10] MEDS: JAIMIESS PO SCH (20:56)
[2022-07-10 21:07] LABS: CLOZAPINE 1 373 ng/mL (350-650); CLOZAPINE 2 171 ng/mL (Not Estab.); CLOZAPINE 3 544 ng/mL (.)
[2022-07-11 06:00] VITALS: BP 111/71
[2022-07-11 06:15] LABS: BASO # 0.1 10^3/uL (0.0-0.2); BASO % 0.7 % (0.0-1.0); EOS # 0.2 10^3/uL (0.0-0.5); EOS % 3.3 % (0.0-3.0); HEMATOCRIT 40.9 % (36.0-47.0); LYMPH # 2.9 10^3/uL (1.5-5.0); LYMPH % 40.7 % (24.0-44.0); MEAN CORPUSCULAR HEMOGLOBIN 29.8 pg (27.0-33.0); MEAN CORPUSCULAR HGB CONC 31.8 g/dl (32.0-36.5); MEAN CORPUSCULAR VOLUME 93.8 fl (80.0-96.0); MONO # 0.5 10^3/uL (0.0-0.8); MONO % 6.7 % (2.0-8.0); NEUTROPHILS # 3.4 10^3/uL (1.5-8.5); NEUTROPHILS % 48.2 % (36.0-66.0); PLATELET COUNT, AUTOMATED 254 10^3/uL (150-450); RED BLOOD COUNT 4.36 10^6/uL (4.00-5.40)
[2022-07-11] MEDS: PANTOPRAZOLE 40MG TAB (PROTONIX) PO SCH (10:19)
[2022-07-11] MEDS: SERTRALINE 100 MG TAB PO SCH (10:19)
[2022-07-11] MEDS: BANZEL 400 MG PO SCH ×2 (10:21→20:30)
[2022-07-11] MEDS: JAIMIESS PO SCH (20:31)
[2022-07-12 06:00] VITALS: BP 119/73
[2022-07-12] MEDS: BANZEL 400 MG PO SCH ×2 (10:36→20:04)
[2022-07-12] MEDS: SERTRALINE 100 MG TAB PO SCH (10:37)
[2022-07-12] MEDS: PANTOPRAZOLE 40MG TAB (PROTONIX) PO SCH (10:37)
[2022-07-12] MEDS: JAIMIESS PO SCH (20:03)
[2022-07-13 06:00] VITALS: BP 118/70
[2022-07-13 06:17] LABS: BASO # 0.1 10^3/uL (0.0-0.2); BASO % 0.8 % (0.0-1.0); EOS # 0.3 10^3/uL (0.0-0.5); EOS % 3.3 % (0.0-3.0); HEMATOCRIT 38.9 % (36.0-47.0); HEMOGLOBIN 12.6 g/dl (12.0-15.5); LYMPH # 3.8 10^3/uL (1.5-5.0); LYMPH % 49.2 % (24.0-44.0); MEAN CORPUSCULAR HEMOGLOBIN 30.3 pg (27.0-33.0); MEAN CORPUSCULAR HGB CONC 32.4 g/dl (32.0-36.5); MEAN CORPUSCULAR VOLUME 93.5 fl (80.0-96.0); MONO # 0.6 10^3/uL (0.0-0.8); MONO % 7.7 % (2.0-8.0); NEUTROPHILS % 38.6 % (36.0-66.0); PLATELET COUNT, AUTOMATED 239 10^3/uL (150-450); RED BLOOD COUNT 4.16 10^6/uL (4.00-5.40); WHITE BLOOD COUNT 7.7 10^3/uL (4.0-10.0)
[2022-07-13] MEDS: SERTRALINE 100 MG TAB PO SCH (10:27)
[2022-07-13] MEDS: BANZEL 400 MG PO SCH ×2 (10:27→20:42)
[2022-07-13] MEDS: PANTOPRAZOLE 40MG TAB (PROTONIX) PO SCH (10:27)
[2022-07-13] MEDS: JAIMIESS PO SCH (20:33)
[2022-07-14 06:00] VITALS: BP 116/70
[2022-07-14] MEDS: PANTOPRAZOLE 40MG TAB (PROTONIX) PO SCH (10:04)
[2022-07-14] MEDS: SERTRALINE 100 MG TAB PO SCH (10:04)
[2022-07-14] MEDS: BANZEL 400 MG PO SCH ×2 (12:10→20:13)
[2022-07-14] MEDS: JAIMIESS PO SCH (20:13)
[2022-07-15 06:00] VITALS: BP 112/64
[2022-07-15] MEDS: SERTRALINE 100 MG TAB PO SCH (10:15)
[2022-07-15] MEDS: PANTOPRAZOLE 40MG TAB (PROTONIX) PO SCH (10:16)
[2022-07-15] MEDS: BANZEL 400 MG PO SCH ×2 (10:17→10:20)
[2022-07-15] MEDS: JAIMIESS PO SCH (20:15)
[2022-07-16 06:00] VITALS: BP 101/61
[2022-07-16] MEDS: PANTOPRAZOLE 40MG TAB (PROTONIX) PO SCH (11:01)
[2022-07-16] MEDS: SERTRALINE 100 MG TAB PO SCH (11:01)
[2022-07-16] MEDS: BANZEL 400 MG PO SCH ×2 (11:02→20:25)
[2022-07-16 11:13] VITALS: BP 133/59
[2022-07-16 11:30] VITALS: BP 133/59
[2022-07-16 12:05] LABS: BASO # 0.1 10^3/uL (0.0-0.2); BASO % 0.3 % (0.0-1.0); EOS % 0.2 % (0.0-3.0); HEMATOCRIT 38.8 % (36.0-47.0); HEMOGLOBIN 12.3 g/dl (12.0-15.5); LYMPH # 0.9 10^3/uL (1.5-5.0); MEAN CORPUSCULAR HEMOGLOBIN 29.7 pg (27.0-33.0); MEAN CORPUSCULAR HGB CONC 31.7 g/dl (32.0-36.5); MEAN CORPUSCULAR VOLUME 93.7 fl (80.0-96.0); MONO # 0.9 10^3/uL (0.0-0.8); MONO % 5.8 % (2.0-8.0); NEUTROPHILS # 12.8 10^3/uL (1.5-8.5); NEUTROPHILS % 87.2 % (36.0-66.0); PLATELET COUNT, AUTOMATED 233 10^3/uL (150-450); RED BLOOD COUNT 4.14 10^6/uL (4.00-5.40); WHITE BLOOD COUNT 14.7 10^3/uL (4.0-10.0)
[2022-07-16 12:34] LABS: ALBUMIN 3.5 G/DL (3.2-5.2); ALKALINE PHOSPHATASE 80 U/L (46-116); ALT/SGPT 10 U/L (7.0-40); AST/SGOT 21 U/L (<34); BILIRUBIN,TOTAL 0.3 MG/DL (0.3-1.2); BLOOD UREA NITROGEN 15 MG/DL (9-23); CALCIUM LEVEL 9.1 MG/DL (8.5-10.1); CARBON DIOXIDE LEVEL 22 MMOL/L (20-31); CHLORIDE LEVEL 104 MMOL/L (98-107); CREATININE FOR GFR 0.55 MG/DL (0.55-1.30); GLOMERULAR FILTRATION RATE > 60.0 (>60); GLUCOSE, FASTING 149 MG/DL (60-100); MAGNESIUM LEVEL 1.4 MG/DL (1.8-2.4); SODIUM LEVEL 137 MMOL/L (136-145); TOTAL PROTEIN 6.4 G/DL (5.7-8.2)
[2022-07-16] MEDS ORDERED: guaiFENesin 200 MG TAB PO PRN (13:50)
[2022-07-16] MEDS: JAIMIESS PO SCH (20:25)
[2022-07-17 06:00] VITALS: BP 106/61
[2022-07-17] MEDS: SERTRALINE 100 MG TAB PO SCH (09:58)
[2022-07-17] MEDS: PANTOPRAZOLE 40MG TAB (PROTONIX) PO SCH (09:58)
[2022-07-17] MEDS: BANZEL 400 MG PO SCH ×2 (09:59→20:14)
[2022-07-17] MEDS: ACETAMINOPHEN TAB 650MG DOSE (2X325MG) PO PRN (10:05)
[2022-07-17] MEDS ORDERED: MAGNESIUM OXIDE 400MG TAB (MAG-OX) PO ONE (12:10)
[2022-07-17] MEDS: JAIMIESS PO SCH (20:12)
[2022-07-18 06:00] VITALS: BP 105/61
[2022-07-18 06:01] LABS: BASO # 0.1 10^3/uL (0.0-0.2); BASO % 0.5 % (0.0-1.0); EOS # 0.4 10^3/uL (0.0-0.5); EOS % 3.4 % (0.0-3.0); HEMATOCRIT 38.9 % (36.0-47.0); HEMOGLOBIN 12.3 g/dl (12.0-15.5); LYMPH # 2.3 10^3/uL (1.5-5.0); LYMPH % 20.3 % (24.0-44.0); MEAN CORPUSCULAR HEMOGLOBIN 29.8 pg (27.0-33.0); MEAN CORPUSCULAR HGB CONC 31.6 g/dl (32.0-36.5); MEAN CORPUSCULAR VOLUME 94.2 fl (80.0-96.0); MONO # 0.8 10^3/uL (0.0-0.8); MONO % 7.1 % (2.0-8.0); NEUTROPHILS # 7.9 10^3/uL (1.5-8.5); NEUTROPHILS % 68.2 % (36.0-66.0); PLATELET COUNT, AUTOMATED 246 10^3/uL (150-450); RED BLOOD COUNT 4.13 10^6/uL (4.00-5.40); WHITE BLOOD COUNT 11.5 10^3/uL (4.0-10.0)
[2022-07-18] MEDS: BANZEL 400 MG PO SCH ×2 (09:22→20:20)
[2022-07-18] MEDS: PANTOPRAZOLE 40MG TAB (PROTONIX) PO SCH (09:23)
[2022-07-18] MEDS: SERTRALINE 100 MG TAB PO SCH (09:23)
[2022-07-18] MEDS: ACETAMINOPHEN TAB 650MG DOSE (2X325MG) PO PRN (09:39)
[2022-07-18] MEDS ORDERED: CEPACOL LOZENGE PO PRN (10:15)
[2022-07-18] MEDS: JAIMIESS PO SCH (20:18)
[2022-07-19 06:28] VITALS: BP 110/73
[2022-07-19] MEDS: SERTRALINE 100 MG TAB PO SCH (09:19)
[2022-07-19] MEDS: PANTOPRAZOLE 40MG TAB (PROTONIX) PO SCH (09:19)
[2022-07-19] MEDS: BANZEL 400 MG PO SCH ×2 (09:25→20:07)
[2022-07-19 09:26] VITALS: BP 117/70
[2022-07-19] MEDS: JAIMIESS PO SCH (20:08)
[2022-07-20 05:41] VITALS: BP 106/73
[2022-07-20] MEDS: SERTRALINE 100 MG TAB PO SCH (10:01)
[2022-07-20] MEDS: PANTOPRAZOLE 40MG TAB (PROTONIX) PO SCH (10:01)
[2022-07-20] MEDS: BANZEL 400 MG PO SCH ×2 (10:03→10:05)
[2022-07-20] MEDS: JAIMIESS PO SCH (20:07)
[2022-07-21 05:27] VITALS: BP 97/64
[2022-07-21] MEDS: PANTOPRAZOLE 40MG TAB (PROTONIX) PO SCH (09:51)
[2022-07-21] MEDS: SERTRALINE 100 MG TAB PO SCH (09:51)
[2022-07-21] MEDS: BANZEL 400 MG PO SCH ×2 (09:51→21:30)
[2022-07-21] MEDS: PENCICLOVIR 1% CREAM 5GM TOP SCH ×6 (12:00→22:50)
[2022-07-21] MEDS: JAIMIESS PO SCH (21:31)
[2022-07-22] MEDS: PENCICLOVIR 1% CREAM 5GM TOP SCH ×13 (00:08→22:30)
[2022-07-22 06:00] VITALS: BP 107/72
[2022-07-22] MEDS: SERTRALINE 100 MG TAB PO SCH (09:56)
[2022-07-22] MEDS: BANZEL 400 MG PO SCH ×2 (09:56→22:27)
[2022-07-22] MEDS: PANTOPRAZOLE 40MG TAB (PROTONIX) PO SCH (09:56)
[2022-07-22] MEDS: JAIMIESS PO SCH (22:27)
[2022-07-23] MEDS: PENCICLOVIR 1% CREAM 5GM TOP SCH ×12 (02:00→21:23)
[2022-07-23 05:50] VITALS: BP 106/71
[2022-07-23] MEDS: ACETAMINOPHEN TAB 650MG DOSE (2X325MG) PO PRN (10:14)
[2022-07-23] MEDS: SERTRALINE 100 MG TAB PO SCH (10:57)
[2022-07-23] MEDS: PANTOPRAZOLE 40MG TAB (PROTONIX) PO SCH (10:57)
[2022-07-23] MEDS: BANZEL 400 MG PO SCH ×2 (10:58→21:20)
[2022-07-23] MEDS: LORazepam 2 MG TAB PO PRN (12:25)
[2022-07-23] MEDS: JAIMIESS PO SCH (21:19)
[2022-07-24] MEDS: PENCICLOVIR 1% CREAM 5GM TOP SCH ×12 (02:00→22:00)
[2022-07-24] MEDS: BANZEL 400 MG PO SCH ×2 (08:27→20:08)
[2022-07-24] MEDS: PANTOPRAZOLE 40MG TAB (PROTONIX) PO SCH (08:27)
[2022-07-24] MEDS: SERTRALINE 100 MG TAB PO SCH (08:27)
[2022-07-24] MEDS: JAIMIESS PO SCH (20:08)
[2022-07-25] MEDS: PENCICLOVIR 1% CREAM 5GM TOP SCH ×6 (02:00→10:00)
[2022-07-25 05:33] VITALS: BP 105/70
[2022-07-25] MEDS: SERTRALINE 100 MG TAB PO SCH (08:58)
[2022-07-25] MEDS: PANTOPRAZOLE 40MG TAB (PROTONIX) PO SCH (08:59)
[2022-07-25] MEDS: BANZEL 400 MG PO SCH ×2 (08:59→19:44)
[2022-07-25] MEDS: JAIMIESS PO SCH (19:44)
[2022-07-26] MEDS: PANTOPRAZOLE 40MG TAB (PROTONIX) PO SCH (10:36)
[2022-07-26] MEDS: SERTRALINE 100 MG TAB PO SCH (10:36)
[2022-07-26] MEDS: BANZEL 400 MG PO SCH ×2 (10:37→20:14)
[2022-07-26 15:13] VITALS: BP 123/77
[2022-07-26] MEDS: JAIMIESS PO SCH (20:14)
[2022-07-27 07:12] LABS: BASO # 0.1 10^3/uL (0.0-0.2); BASO % 0.8 % (0.0-1.0); EOS # 0.3 10^3/uL (0.0-0.5); EOS % 3.5 % (0.0-3.0); HEMATOCRIT 40.4 % (36.0-47.0); HEMOGLOBIN 12.9 g/dl (12.0-15.5); MEAN CORPUSCULAR HEMOGLOBIN 29.5 pg (27.0-33.0); MEAN CORPUSCULAR HGB CONC 31.9 g/dl (32.0-36.5); MEAN CORPUSCULAR VOLUME 92.4 fl (80.0-96.0); MONO # 0.5 10^3/uL (0.0-0.8); MONO % 6.6 % (2.0-8.0); NEUTROPHILS # 3.6 10^3/uL (1.5-8.5); NEUTROPHILS % 48.3 % (36.0-66.0); PLATELET COUNT, AUTOMATED 241 10^3/uL (150-450); RED BLOOD COUNT 4.37 10^6/uL (4.00-5.40); WHITE BLOOD COUNT 7.4 10^3/uL (4.0-10.0)
[2022-07-27] MEDS: BANZEL 400 MG PO SCH ×2 (09:55→22:09)
[2022-07-27] MEDS: PANTOPRAZOLE 40MG TAB (PROTONIX) PO SCH (09:55)
[2022-07-27] MEDS: SERTRALINE 100 MG TAB PO SCH (09:55)
[2022-07-27] MEDS: JAIMIESS PO SCH (22:10)
[2022-07-28 06:00] VITALS: BP 110/71
[2022-07-28] MEDS: BANZEL 400 MG PO SCH ×2 (09:00→21:07)
[2022-07-28] MEDS: PANTOPRAZOLE 40MG TAB (PROTONIX) PO SCH (09:00)
[2022-07-28] MEDS: SERTRALINE 100 MG TAB PO SCH (09:00)
[2022-07-28] MEDS: JAIMIESS PO SCH (21:07)
[2022-07-29 06:00] VITALS: BP 111/64
[2022-07-29] MEDS: BANZEL 400 MG PO SCH ×2 (09:56→20:18)
[2022-07-29] MEDS: PANTOPRAZOLE 40MG TAB (PROTONIX) PO SCH (09:56)
[2022-07-29] MEDS: SERTRALINE 100 MG TAB PO SCH (09:56)
[2022-07-29] MEDS: JAIMIESS PO SCH (20:19)
[2022-07-30 07:15] VITALS: BP 116/67
[2022-07-30] MEDS: SERTRALINE 100 MG TAB PO SCH (08:45)
[2022-07-30] MEDS: BANZEL 400 MG PO SCH ×2 (08:45→20:17)
[2022-07-30] MEDS: PANTOPRAZOLE 40MG TAB (PROTONIX) PO SCH (08:45)
[2022-07-30] MEDS: JAIMIESS PO SCH (20:17)
[2022-07-31] MEDS: PANTOPRAZOLE 40MG TAB (PROTONIX) PO SCH (09:54)
[2022-07-31] MEDS: SERTRALINE 100 MG TAB PO SCH (09:54)
[2022-07-31] MEDS: BANZEL 400 MG PO SCH ×2 (09:56→20:28)
[2022-07-31] MEDS: JAIMIESS PO SCH (20:28)
[2022-08-01] MEDS: SERTRALINE 100 MG TAB PO SCH (09:00)
[2022-08-01] MEDS: BANZEL 400 MG PO SCH ×2 (09:00→19:51)
[2022-08-01] MEDS: PANTOPRAZOLE 40MG TAB (PROTONIX) PO SCH (09:00)
[2022-08-01] MEDS: JAIMIESS PO SCH (19:51)
[2022-08-02 06:00] VITALS: BP 103/64
[2022-08-02] MEDS: BANZEL 400 MG PO SCH ×2 (09:00→19:40)
[2022-08-02] MEDS: PANTOPRAZOLE 40MG TAB (PROTONIX) PO SCH (10:26)
[2022-08-02] MEDS: SERTRALINE 100 MG TAB PO SCH (10:26)
[2022-08-02] MEDS: JAIMIESS PO SCH (19:40)
[2022-08-02] MEDS: ACETAMINOPHEN TAB 650MG DOSE (2X325MG) PO PRN (19:41)
[2022-08-03 06:00] VITALS: BP 102/67
[2022-08-03 06:19] LABS: BASO # 0.1 10^3/uL (0.0-0.2); EOS # 0.2 10^3/uL (0.0-0.5); EOS % 3.9 % (0.0-3.0); HEMATOCRIT 38.6 % (36.0-47.0); HEMOGLOBIN 12.2 g/dl (12.0-15.5); LYMPH # 3.2 10^3/uL (1.5-5.0); LYMPH % 52.4 % (24.0-44.0); MEAN CORPUSCULAR HEMOGLOBIN 29.8 pg (27.0-33.0); MEAN CORPUSCULAR HGB CONC 31.6 g/dl (32.0-36.5); MEAN CORPUSCULAR VOLUME 94.1 fl (80.0-96.0); MONO # 0.6 10^3/uL (0.0-0.8); MONO % 10.1 % (2.0-8.0); NEUTROPHILS % 32.3 % (36.0-66.0); PLATELET COUNT, AUTOMATED 243 10^3/uL (150-450); WHITE BLOOD COUNT 6.1 10^3/uL (4.0-10.0)
[2022-08-03] MEDS: PANTOPRAZOLE 40MG TAB (PROTONIX) PO SCH (09:00)
[2022-08-03] MEDS: BANZEL 400 MG PO SCH ×2 (09:00→20:11)
[2022-08-03] MEDS: SERTRALINE 100 MG TAB PO SCH (09:00)
[2022-08-03] MEDS: JAIMIESS PO SCH (20:11)
[2022-08-04 06:00] VITALS: BP 100/63
[2022-08-04] MEDS: SERTRALINE 100 MG TAB PO SCH (09:25)
[2022-08-04] MEDS: PANTOPRAZOLE 40MG TAB (PROTONIX) PO SCH (09:25)
[2022-08-04] MEDS: BANZEL 400 MG PO SCH ×2 (09:26→21:12)
[2022-08-04] MEDS: JAIMIESS PO SCH (21:12)
[2022-08-05 06:00] VITALS: BP 117/78
[2022-08-05] MEDS: SERTRALINE 100 MG TAB PO SCH (09:23)
[2022-08-05] MEDS: PANTOPRAZOLE 40MG TAB (PROTONIX) PO SCH (09:23)
[2022-08-05] MEDS: BANZEL 400 MG PO SCH ×2 (09:25→20:42)
[2022-08-05] MEDS: JAIMIESS PO SCH (20:42)
[2022-08-06] MEDS: BANZEL 400 MG PO SCH ×2 (09:00→20:41)
[2022-08-06] MEDS: SERTRALINE 100 MG TAB PO SCH (10:42)
[2022-08-06] MEDS: PANTOPRAZOLE 40MG TAB (PROTONIX) PO SCH (10:42)
[2022-08-06] MEDS: JAIMIESS PO SCH (20:41)
[2022-08-07] MEDS: SERTRALINE 100 MG TAB PO SCH (08:55)
[2022-08-07] MEDS: PANTOPRAZOLE 40MG TAB (PROTONIX) PO SCH (08:55)
[2022-08-07] MEDS: BANZEL 400 MG PO SCH ×2 (08:56→20:30)
[2022-08-07] MEDS: JAIMIESS PO SCH (20:29)
[2022-08-08 06:00] VITALS: BP 103/61
[2022-08-08] MEDS: SERTRALINE 100 MG TAB PO SCH (08:06)
[2022-08-08] MEDS: PANTOPRAZOLE 40MG TAB (PROTONIX) PO SCH (08:06)
[2022-08-08] MEDS: BANZEL 400 MG PO SCH ×2 (08:52→19:42)
[2022-08-08] MEDS: JAIMIESS PO SCH (19:41)
[2022-08-09 06:00] VITALS: BP 103/64
[2022-08-09] MEDS: BANZEL 400 MG PO SCH ×2 (09:00→20:11)
[2022-08-09] MEDS: SERTRALINE 100 MG TAB PO SCH (10:21)
[2022-08-09] MEDS: PANTOPRAZOLE 40MG TAB (PROTONIX) PO SCH (10:21)
[2022-08-09] MEDS: JAIMIESS PO SCH (20:10)
[2022-08-10 05:41] VITALS: BP 102/65
[2022-08-10 06:09] LABS: BASO % 0.5 % (0.0-1.0); EOS # 0.2 10^3/uL (0.0-0.5); EOS % 3.8 % (0.0-3.0); HEMATOCRIT 39.3 % (36.0-47.0); HEMOGLOBIN 12.6 g/dl (12.0-15.5); LYMPH # 3.1 10^3/uL (1.5-5.0); MEAN CORPUSCULAR HEMOGLOBIN 29.5 pg (27.0-33.0); MEAN CORPUSCULAR HGB CONC 32.1 g/dl (32.0-36.5); MONO # 0.6 10^3/uL (0.0-0.8); MONO % 8.6 % (2.0-8.0); NEUTROPHILS # 2.5 10^3/uL (1.5-8.5); NEUTROPHILS % 38.6 % (36.0-66.0); PLATELET COUNT, AUTOMATED 242 10^3/uL (150-450); RED BLOOD COUNT 4.27 10^6/uL (4.00-5.40); WHITE BLOOD COUNT 6.4 10^3/uL (4.0-10.0)
[2022-08-10] MEDS: SERTRALINE 100 MG TAB PO SCH (08:47)
[2022-08-10] MEDS: PANTOPRAZOLE 40MG TAB (PROTONIX) PO SCH (08:47)
[2022-08-10] MEDS: BANZEL 400 MG PO SCH ×2 (08:48→21:23)
[2022-08-10] MEDS: JAIMIESS PO SCH (21:23)
[2022-08-11 05:38] VITALS: BP 113/63
[2022-08-11] MEDS: PANTOPRAZOLE 40MG TAB (PROTONIX) PO SCH (10:04)
[2022-08-11] MEDS: SERTRALINE 100 MG TAB PO SCH (10:04)
[2022-08-11] MEDS: BANZEL 400 MG PO SCH ×2 (10:05→20:52)
[2022-08-11] MEDS: JAIMIESS PO SCH (20:52)
[2022-08-12 06:00] VITALS: BP 125/60
[2022-08-12] MEDS: BANZEL 400 MG PO SCH ×2 (09:00→21:52)
[2022-08-12] MEDS: SERTRALINE 100 MG TAB PO SCH (10:34)
[2022-08-12] MEDS: PANTOPRAZOLE 40MG TAB (PROTONIX) PO SCH (10:34)
[2022-08-12] MEDS: LORazepam 2 MG TAB PO PRN ×2 (10:46→18:17)
[2022-08-12] MEDS: JAIMIESS PO SCH (21:55)
[2022-08-13 06:00] VITALS: BP 101/64
[2022-08-13] MEDS: PANTOPRAZOLE 40MG TAB (PROTONIX) PO SCH (09:31)
[2022-08-13] MEDS: SERTRALINE 100 MG TAB PO SCH (09:31)
[2022-08-13] MEDS: BANZEL 400 MG PO SCH ×2 (09:33→21:01)
[2022-08-13] MEDS: LORazepam 2 MG TAB PO PRN (10:49)
[2022-08-13] MEDS: JAIMIESS PO SCH (21:01)
[2022-08-14 06:00] VITALS: BP 121/74
[2022-08-14] MEDS: SERTRALINE 100 MG TAB PO SCH (08:51)
[2022-08-14] MEDS: PANTOPRAZOLE 40MG TAB (PROTONIX) PO SCH (08:52)
[2022-08-14] MEDS: BANZEL 400 MG PO SCH ×2 (08:53→20:53)
[2022-08-14] MEDS: JAIMIESS PO SCH (20:53)
[2022-08-15 06:00] VITALS: BP 115/69
[2022-08-15] MEDS: SERTRALINE 100 MG TAB PO SCH (10:13)
[2022-08-15] MEDS: PANTOPRAZOLE 40MG TAB (PROTONIX) PO SCH (10:13)
[2022-08-15] MEDS: BANZEL 400 MG PO SCH ×2 (10:14→20:34)
[2022-08-15] MEDS: LORazepam 2 MG TAB PO PRN (10:36)
[2022-08-15] MEDS: JAIMIESS PO SCH (20:35)
[2022-08-16 06:16] VITALS: BP 112/69
[2022-08-16] MEDS: BANZEL 400 MG PO SCH ×2 (09:20→20:07)
[2022-08-16] MEDS: PANTOPRAZOLE 40MG TAB (PROTONIX) PO SCH (09:21)
[2022-08-16] MEDS: SERTRALINE 100 MG TAB PO SCH (09:21)
[2022-08-16] MEDS: JAIMIESS PO SCH (20:07)
[2022-08-17 06:00] VITALS: BP 99/53
[2022-08-17 06:15] LABS: BASO # 0.1 10^3/uL (0.0-0.2); BASO % 0.7 % (0.0-1.0); EOS # 0.2 10^3/uL (0.0-0.5); EOS % 3.2 % (0.0-3.0); HEMATOCRIT 39.6 % (36.0-47.0); HEMOGLOBIN 12.6 g/dl (12.0-15.5); LYMPH # 3.2 10^3/uL (1.5-5.0); LYMPH % 43.2 % (24.0-44.0); MEAN CORPUSCULAR HEMOGLOBIN 29.2 pg (27.0-33.0); MEAN CORPUSCULAR HGB CONC 31.8 g/dl (32.0-36.5); MEAN CORPUSCULAR VOLUME 91.7 fl (80.0-96.0); MONO # 0.6 10^3/uL (0.0-0.8); MONO % 7.7 % (2.0-8.0); NEUTROPHILS # 3.3 10^3/uL (1.5-8.5); NEUTROPHILS % 44.8 % (36.0-66.0); PLATELET COUNT, AUTOMATED 247 10^3/uL (150-450); RED BLOOD COUNT 4.32 10^6/uL (4.00-5.40); WHITE BLOOD COUNT 7.4 10^3/uL (4.0-10.0)
[2022-08-17 06:46] VITALS: BP 107/53
[2022-08-17] MEDS: SERTRALINE 100 MG TAB PO SCH (10:01)
[2022-08-17] MEDS: PANTOPRAZOLE 40MG TAB (PROTONIX) PO SCH (10:01)
[2022-08-17] MEDS: BANZEL 400 MG PO SCH ×2 (10:02→20:33)
[2022-08-17] MEDS: JAIMIESS PO SCH (20:33)
[2022-08-18 06:00] VITALS: BP 103/68
[2022-08-18] MEDS: BANZEL 400 MG PO SCH ×2 (09:49→20:02)
[2022-08-18] MEDS: SERTRALINE 100 MG TAB PO SCH (09:49)
[2022-08-18] MEDS: PANTOPRAZOLE 40MG TAB (PROTONIX) PO SCH (09:49)
[2022-08-18] MEDS: ACETAMINOPHEN TAB 650MG DOSE (2X325MG) PO PRN (11:23)
[2022-08-18] MEDS: JAIMIESS PO SCH (20:02)
[2022-08-19 06:00] VITALS: BP 110/71
[2022-08-19] MEDS: BANZEL 400 MG PO SCH ×2 (09:00→20:49)
[2022-08-19] MEDS: PANTOPRAZOLE 40MG TAB (PROTONIX) PO SCH (10:19)
[2022-08-19] MEDS: SERTRALINE 100 MG TAB PO SCH (10:20)
[2022-08-19] MEDS: ACETAMINOPHEN TAB 650MG DOSE (2X325MG) PO PRN (13:49)
[2022-08-19] MEDS: JAIMIESS PO SCH (20:48)
[2022-08-20 06:00] VITALS: BP 110/70
[2022-08-20] MEDS: SERTRALINE 100 MG TAB PO SCH (10:32)
[2022-08-20] MEDS: PANTOPRAZOLE 40MG TAB (PROTONIX) PO SCH (10:32)
[2022-08-20] MEDS: BANZEL 400 MG PO SCH ×2 (10:33→19:50)
[2022-08-20] MEDS: JAIMIESS PO SCH (19:49)
[2022-08-21 06:00] VITALS: BP 132/79
[2022-08-21] MEDS: BANZEL 400 MG PO SCH ×2 (09:59→20:22)
[2022-08-21] MEDS: SERTRALINE 100 MG TAB PO SCH (10:00)
[2022-08-21] MEDS: PANTOPRAZOLE 40MG TAB (PROTONIX) PO SCH (10:00)
[2022-08-21] MEDS: JAIMIESS PO SCH (20:22)
[2022-08-22 05:23] VITALS: BP 144/81
[2022-08-22] MEDS: SERTRALINE 100 MG TAB PO SCH (09:04)
[2022-08-22] MEDS: PANTOPRAZOLE 40MG TAB (PROTONIX) PO SCH (09:04)
[2022-08-22] MEDS: BANZEL 400 MG PO SCH ×2 (09:05→20:07)
[2022-08-22] MEDS: JAIMIESS PO SCH (20:09)
[2022-08-23 06:00] VITALS: BP 108/63
[2022-08-23] MEDS: BANZEL 400 MG PO SCH ×2 (08:51→20:59)
[2022-08-23] MEDS: PANTOPRAZOLE 40MG TAB (PROTONIX) PO SCH (08:51)
[2022-08-23] MEDS: SERTRALINE 100 MG TAB PO SCH (08:51)
[2022-08-23] MEDS: JAIMIESS PO SCH (21:00)
[2022-08-24 05:54] LABS: BASO # 0.1 10^3/uL (0.0-0.2); BASO % 0.9 % (0.0-1.0); EOS # 0.2 10^3/uL (0.0-0.5); HEMATOCRIT 38.4 % (36.0-47.0); HEMOGLOBIN 12.4 g/dl (12.0-15.5); LYMPH # 3.2 10^3/uL (1.5-5.0); LYMPH % 45.3 % (24.0-44.0); MEAN CORPUSCULAR HEMOGLOBIN 29.6 pg (27.0-33.0); MEAN CORPUSCULAR HGB CONC 32.3 g/dl (32.0-36.5); MEAN CORPUSCULAR VOLUME 91.6 fl (80.0-96.0); MONO # 0.5 10^3/uL (0.0-0.8); MONO % 7.7 % (2.0-8.0); NEUTROPHILS % 42.5 % (36.0-66.0); PLATELET COUNT, AUTOMATED 259 10^3/uL (150-450); RED BLOOD COUNT 4.19 10^6/uL (4.00-5.40)
[2022-08-24 06:00] VITALS: BP 109/65
[2022-08-24] MEDS: PANTOPRAZOLE 40MG TAB (PROTONIX) PO SCH (10:36)
[2022-08-24] MEDS: SERTRALINE 100 MG TAB PO SCH (10:36)
[2022-08-24] MEDS: BANZEL 400 MG PO SCH ×2 (10:37→20:08)
[2022-08-24] MEDS: JAIMIESS PO SCH (20:08)
[2022-08-25 05:18] VITALS: BP 111/66
[2022-08-25] MEDS: PANTOPRAZOLE 40MG TAB (PROTONIX) PO SCH (08:27)
[2022-08-25] MEDS: SERTRALINE 100 MG TAB PO SCH (08:28)
[2022-08-25] MEDS: BANZEL 400 MG PO SCH ×2 (08:29→20:04)
[2022-08-25 14:00] VITALS: BP 122/64
[2022-08-25] MEDS: JAIMIESS PO SCH (20:04)
[2022-08-26 05:38] VITALS: BP 124/58
[2022-08-26] MEDS: PANTOPRAZOLE 40MG TAB (PROTONIX) PO SCH (09:00)
[2022-08-26] MEDS: SERTRALINE 100 MG TAB PO SCH (09:00)
[2022-08-26] MEDS: BANZEL 400 MG PO SCH ×2 (09:01→20:25)
[2022-08-26] MEDS: ACETAMINOPHEN TAB 650MG DOSE (2X325MG) PO PRN (20:25)
[2022-08-26] MEDS: JAIMIESS PO SCH (20:27)
[2022-08-27] MEDS: BANZEL 400 MG PO SCH ×2 (08:12→20:06)
[2022-08-27] MEDS: PANTOPRAZOLE 40MG TAB (PROTONIX) PO SCH (08:13)
[2022-08-27] MEDS: SERTRALINE 100 MG TAB PO SCH (08:13)
[2022-08-27] MEDS: JAIMIESS PO SCH (20:06)
[2022-08-28 06:00] VITALS: BP 105/65
[2022-08-28 06:41] LABS: BASO % 0.5 % (0.0-1.0); EOS # 0.3 10^3/uL (0.0-0.5); EOS % 3.1 % (0.0-3.0); HEMATOCRIT 38.3 % (36.0-47.0); HEMOGLOBIN 11.9 g/dl (12.0-15.5); LYMPH # 3.2 10^3/uL (1.5-5.0); LYMPH % 39.4 % (24.0-44.0); MEAN CORPUSCULAR HEMOGLOBIN 28.8 pg (27.0-33.0); MEAN CORPUSCULAR HGB CONC 31.1 g/dl (32.0-36.5); MEAN CORPUSCULAR VOLUME 92.7 fl (80.0-96.0); MONO # 0.8 10^3/uL (0.0-0.8); MONO % 9.2 % (2.0-8.0); NEUTROPHILS # 3.9 10^3/uL (1.5-8.5); NEUTROPHILS % 47.4 % (36.0-66.0); PLATELET COUNT, AUTOMATED 248 10^3/uL (150-450); RED BLOOD COUNT 4.13 10^6/uL (4.00-5.40); WHITE BLOOD COUNT 8.1 10^3/uL (4.0-10.0)
[2022-08-28 06:59] LABS: BLOOD UREA NITROGEN 15 MG/DL (9-23); CALCIUM LEVEL 8.7 MG/DL (8.5-10.1); CARBON DIOXIDE LEVEL 27 MMOL/L (20-31); CHLORIDE LEVEL 107 MMOL/L (98-107); CREATININE FOR GFR 0.56 MG/DL (0.55-1.30); GLOMERULAR FILTRATION RATE > 60.0 (>60); GLUCOSE, FASTING 83 MG/DL (60-100); POTASSIUM SERUM 3.9 MMOL/L (3.5-5.1); SODIUM LEVEL 139 MMOL/L (136-145)
[2022-08-28] MEDS: SERTRALINE 100 MG TAB PO SCH (10:25)
[2022-08-28] MEDS: PANTOPRAZOLE 40MG TAB (PROTONIX) PO SCH (10:25)
[2022-08-28] MEDS: BANZEL 400 MG PO SCH ×2 (10:26→20:07)
[2022-08-28] MEDS: JAIMIESS PO SCH (20:06)
[2022-08-29 06:00] VITALS: BP 108/67
[2022-08-29] MEDS: BANZEL 400 MG PO SCH ×2 (10:13→19:45)
[2022-08-29] MEDS: SERTRALINE 100 MG TAB PO SCH (10:13)
[2022-08-29] MEDS: PANTOPRAZOLE 40MG TAB (PROTONIX) PO SCH (10:13)
[2022-08-29] MEDS: JAIMIESS PO SCH (19:45)
[2022-08-30 06:00] VITALS: BP 104/66
[2022-08-30] MEDS: SERTRALINE 100 MG TAB PO SCH (10:13)
[2022-08-30] MEDS: BANZEL 400 MG PO SCH ×2 (10:13→20:24)
[2022-08-30] MEDS: PANTOPRAZOLE 40MG TAB (PROTONIX) PO SCH (10:13)
[2022-08-30] MEDS: JAIMIESS PO SCH (20:24)
[2022-08-30] MEDS: ACETAMINOPHEN TAB 650MG DOSE (2X325MG) PO PRN (20:25)
[2022-08-31 06:00] VITALS: BP 104/65
[2022-08-31 06:15] LABS: BASO % 0.5 % (0.0-1.0); EOS # 0.2 10^3/uL (0.0-0.5); EOS % 2.8 % (0.0-3.0); HEMATOCRIT 38.8 % (36.0-47.0); HEMOGLOBIN 12.2 g/dl (12.0-15.5); MEAN CORPUSCULAR HEMOGLOBIN 28.8 pg (27.0-33.0); MEAN CORPUSCULAR HGB CONC 31.4 g/dl (32.0-36.5); MEAN CORPUSCULAR VOLUME 91.7 fl (80.0-96.0); MONO # 0.6 10^3/uL (0.0-0.8); NEUTROPHILS # 4.1 10^3/uL (1.5-8.5); NEUTROPHILS % 51.4 % (36.0-66.0); PLATELET COUNT, AUTOMATED 226 10^3/uL (150-450); RED BLOOD COUNT 4.23 10^6/uL (4.00-5.40)
[2022-08-31] MEDS: PANTOPRAZOLE 40MG TAB (PROTONIX) PO SCH (10:25)
[2022-08-31] MEDS: SERTRALINE 100 MG TAB PO SCH (10:25)
[2022-08-31] MEDS: BANZEL 400 MG PO SCH ×2 (10:30→20:26)
[2022-08-31] MEDS: JAIMIESS PO SCH (20:27)
[2022-09-01 06:00] VITALS: BP 102/65
[2022-09-01] MEDS: PANTOPRAZOLE 40MG TAB (PROTONIX) PO SCH (10:38)
[2022-09-01] MEDS: BANZEL 400 MG PO SCH ×2 (10:38→20:39)
[2022-09-01] MEDS: SERTRALINE 100 MG TAB PO SCH (10:38)
[2022-09-01] MEDS: JAIMIESS PO SCH (20:38)
[2022-09-02 05:58] VITALS: BP 127/81
[2022-09-02] MEDS: PANTOPRAZOLE 40MG TAB (PROTONIX) PO SCH (10:08)
[2022-09-02] MEDS: SERTRALINE 100 MG TAB PO SCH (10:08)
[2022-09-02] MEDS: BANZEL 400 MG PO SCH ×2 (10:09→20:41)
[2022-09-02] MEDS: JAIMIESS PO SCH (20:42)
[2022-09-03 05:27] VITALS: BP 131/61
[2022-09-03] MEDS: PANTOPRAZOLE 40MG TAB (PROTONIX) PO SCH (10:22)
[2022-09-03] MEDS: SERTRALINE 100 MG TAB PO SCH (10:22)
[2022-09-03] MEDS: BANZEL 400 MG PO SCH ×2 (10:23→20:21)
[2022-09-03] MEDS: JAIMIESS PO SCH (20:20)
[2022-09-04 06:00] VITALS: BP 111/62
[2022-09-04] MEDS: PANTOPRAZOLE 40MG TAB (PROTONIX) PO SCH (08:54)
[2022-09-04] MEDS: SERTRALINE 100 MG TAB PO SCH (08:55)
[2022-09-04] MEDS: BANZEL 400 MG PO SCH ×2 (08:55→20:20)
[2022-09-04] MEDS: JAIMIESS PO SCH (20:20)
[2022-09-05 06:00] VITALS: BP 93/63
[2022-09-05 06:40] VITALS: BP 108/65
[2022-09-05] MEDS: PANTOPRAZOLE 40MG TAB (PROTONIX) PO SCH (08:40)
[2022-09-05] MEDS: BANZEL 400 MG PO SCH ×2 (08:40→20:17)
[2022-09-05] MEDS: SERTRALINE 100 MG TAB PO SCH (08:40)
[2022-09-05] MEDS ORDERED: TUBERCULIN PPD 5 UNITS/0.1 ML ID ONE (18:00)
[2022-09-05] MEDS: JAIMIESS PO SCH (20:15)
[2022-09-06 06:10] VITALS: BP 109/70
[2022-09-06] MEDS: BANZEL 400 MG PO SCH ×2 (10:52→20:50)
[2022-09-06] MEDS: SERTRALINE 100 MG TAB PO SCH (10:52)
[2022-09-06] MEDS: PANTOPRAZOLE 40MG TAB (PROTONIX) PO SCH (10:52)
[2022-09-06] MEDS: JAIMIESS PO SCH (20:50)
[2022-09-07 05:12] VITALS: BP 134/91
[2022-09-07 05:48] LABS: BASO # 0.1 10^3/uL (0.0-0.2); BASO % 0.7 % (0.0-1.0); EOS # 0.3 10^3/uL (0.0-0.5); EOS % 3.4 % (0.0-3.0); HEMATOCRIT 38.7 % (36.0-47.0); HEMOGLOBIN 12.4 g/dl (12.0-15.5); LYMPH # 3.8 10^3/uL (1.5-5.0); LYMPH % 51.4 % (24.0-44.0); MEAN CORPUSCULAR HEMOGLOBIN 29.4 pg (27.0-33.0); MEAN CORPUSCULAR VOLUME 91.7 fl (80.0-96.0); MONO # 0.6 10^3/uL (0.0-0.8); MONO % 8.6 % (2.0-8.0); NEUTROPHILS # 2.6 10^3/uL (1.5-8.5); NEUTROPHILS % 35.5 % (36.0-66.0); PLATELET COUNT, AUTOMATED 238 10^3/uL (150-450); RED BLOOD COUNT 4.22 10^6/uL (4.00-5.40); WHITE BLOOD COUNT 7.3 10^3/uL (4.0-10.0)
[2022-09-07] MEDS: PANTOPRAZOLE 40MG TAB (PROTONIX) PO SCH (10:21)
[2022-09-07] MEDS: BANZEL 400 MG PO SCH ×2 (10:21→20:47)
[2022-09-07] MEDS: SERTRALINE 100 MG TAB PO SCH (10:21)
[2022-09-07] MEDS ORDERED: PPD DOCUMENTATION ENTRY MISC XX ONE ×2 (18:00)
[2022-09-07] MEDS: JAIMIESS PO SCH (20:47)
[2022-09-08 06:00] VITALS: BP 108/68
[2022-09-08] MEDS: PANTOPRAZOLE 40MG TAB (PROTONIX) PO SCH (09:02)
[2022-09-08] MEDS: SERTRALINE 100 MG TAB PO SCH (09:02)
[2022-09-08] MEDS: BANZEL 400 MG PO SCH ×2 (09:03→20:24)
[2022-09-08] MEDS: JAIMIESS PO SCH (20:24)
[2022-09-09 05:57] VITALS: BP 109/67
[2022-09-09] MEDS: PANTOPRAZOLE 40MG TAB (PROTONIX) PO SCH (09:11)
[2022-09-09] MEDS: SERTRALINE 100 MG TAB PO SCH (09:11)
[2022-09-09] MEDS: BANZEL 400 MG PO SCH ×2 (09:11→20:07)
[2022-09-09] MEDS: JAIMIESS PO SCH (20:07)
[2022-09-10 05:25] VITALS: BP 95/60
[2022-09-10] MEDS: SERTRALINE 100 MG TAB PO SCH (10:28)
[2022-09-10] MEDS: PANTOPRAZOLE 40MG TAB (PROTONIX) PO SCH (10:28)
[2022-09-10] MEDS: BANZEL 400 MG PO SCH ×2 (10:29→20:19)
[2022-09-10] MEDS: JAIMIESS PO SCH (20:18)
[2022-09-11 05:31] VITALS: BP 99/62
[2022-09-11] MEDS: SERTRALINE 100 MG TAB PO SCH (10:33)
[2022-09-11] MEDS: BANZEL 400 MG PO SCH ×2 (10:34→20:08)
[2022-09-11] MEDS: PANTOPRAZOLE 40MG TAB (PROTONIX) PO SCH (10:34)
[2022-09-11] MEDS ORDERED: TUBERCULIN PPD 5 UNITS/0.1 ML ID ONE (16:00)
[2022-09-11] MEDS: JAIMIESS PO SCH (20:09)
[2022-09-12 05:00] VITALS: BP 102/64
[2022-09-12 06:00] VITALS: BP 102/64
[2022-09-12] MEDS: PANTOPRAZOLE 40MG TAB (PROTONIX) PO SCH (10:53)
[2022-09-12] MEDS: SERTRALINE 100 MG TAB PO SCH (10:53)
[2022-09-12] MEDS: BANZEL 400 MG PO SCH ×2 (10:54→20:02)
[2022-09-12] MEDS: LORazepam 2 MG TAB PO PRN (13:42)
[2022-09-12] MEDS: JAIMIESS PO SCH (20:03)
[2022-09-13 06:00] VITALS: BP 95/59
[2022-09-13] MEDS: PANTOPRAZOLE 40MG TAB (PROTONIX) PO SCH (10:10)
[2022-09-13] MEDS: SERTRALINE 100 MG TAB PO SCH (10:10)
[2022-09-13] MEDS: BANZEL 400 MG PO SCH ×2 (10:11→21:07)
[2022-09-13] MEDS ORDERED: PPD DOCUMENTATION ENTRY MISC XX ONE (16:00)
[2022-09-13] MEDS: JAIMIESS PO SCH (21:08)
[2022-09-14 06:07] LABS: BASO # 0.1 10^3/uL (0.0-0.2); BASO % 0.6 % (0.0-1.0); EOS # 0.2 10^3/uL (0.0-0.5); EOS % 2.8 % (0.0-3.0); HEMATOCRIT 37.4 % (36.0-47.0); HEMOGLOBIN 12.2 g/dl (12.0-15.5); LYMPH # 3.6 10^3/uL (1.5-5.0); LYMPH % 45.2 % (24.0-44.0); MEAN CORPUSCULAR HEMOGLOBIN 29.5 pg (27.0-33.0); MEAN CORPUSCULAR HGB CONC 32.6 g/dl (32.0-36.5); MEAN CORPUSCULAR VOLUME 90.6 fl (80.0-96.0); MONO # 0.7 10^3/uL (0.0-0.8); MONO % 9.2 % (2.0-8.0); NEUTROPHILS # 3.3 10^3/uL (1.5-8.5); NEUTROPHILS % 41.9 % (36.0-66.0); PLATELET COUNT, AUTOMATED 241 10^3/uL (150-450); RED BLOOD COUNT 4.13 10^6/uL (4.00-5.40); WHITE BLOOD COUNT 7.9 10^3/uL (4.0-10.0)
[2022-09-14 06:45] VITALS: BP 118/70
[2022-09-14] MEDS: SERTRALINE 100 MG TAB PO SCH (10:01)
[2022-09-14] MEDS: PANTOPRAZOLE 40MG TAB (PROTONIX) PO SCH (10:01)
[2022-09-14] MEDS: BANZEL 400 MG PO SCH ×2 (10:02→20:18)
[2022-09-14] MEDS: JAIMIESS PO SCH (20:18)
[2022-09-15 06:00] VITALS: BP 118/77
[2022-09-15] MEDS: PANTOPRAZOLE 40MG TAB (PROTONIX) PO SCH (09:28)
[2022-09-15] MEDS: SERTRALINE 100 MG TAB PO SCH (09:28)
[2022-09-15] MEDS: BANZEL 400 MG PO SCH ×2 (09:29→20:35)
[2022-09-15] MEDS: JAIMIESS PO SCH (20:36)
[2022-09-15] MEDS: ACETAMINOPHEN TAB 650MG DOSE (2X325MG) PO PRN (20:41)
[2022-09-16 06:00] VITALS: BP 116/75
[2022-09-16] MEDS: BANZEL 400 MG PO SCH ×2 (10:07→20:29)
[2022-09-16] MEDS: PANTOPRAZOLE 40MG TAB (PROTONIX) PO SCH (10:07)
[2022-09-16] MEDS: SERTRALINE 100 MG TAB PO SCH (10:07)
[2022-09-16] MEDS: JAIMIESS PO SCH (20:30)
[2022-09-17 04:48] VITALS: BP 115/73
[2022-09-17] MEDS: PANTOPRAZOLE 40MG TAB (PROTONIX) PO SCH (10:18)
[2022-09-17] MEDS: SERTRALINE 100 MG TAB PO SCH (10:18)
[2022-09-17] MEDS: BANZEL 400 MG PO SCH ×2 (10:18→20:15)
[2022-09-17] MEDS: JAIMIESS PO SCH (20:17)
[2022-09-18 06:00] VITALS: BP 118/77
[2022-09-18] MEDS: BANZEL 400 MG PO SCH ×2 (10:17→20:36)
[2022-09-18] MEDS: PANTOPRAZOLE 40MG TAB (PROTONIX) PO SCH (10:17)
[2022-09-18] MEDS: SERTRALINE 100 MG TAB PO SCH (10:18)
[2022-09-18] MEDS: JAIMIESS PO SCH (20:36)
[2022-09-19 06:00] VITALS: BP 129/67
[2022-09-19] MEDS: PANTOPRAZOLE 40MG TAB (PROTONIX) PO SCH (10:02)
[2022-09-19] MEDS: BANZEL 400 MG PO SCH ×2 (10:02→20:28)
[2022-09-19] MEDS: SERTRALINE 100 MG TAB PO SCH (10:03)
[2022-09-19] MEDS: JAIMIESS PO SCH (20:28)
[2022-09-20 05:30] VITALS: BP 108/72
[2022-09-20] MEDS: BANZEL 400 MG PO SCH ×2 (10:13→20:20)
[2022-09-20] MEDS: SERTRALINE 100 MG TAB PO SCH (10:13)
[2022-09-20] MEDS: PANTOPRAZOLE 40MG TAB (PROTONIX) PO SCH (10:13)
[2022-09-20] MEDS: JAIMIESS PO SCH (20:19)
[2022-09-21 02:42] VITALS: BP 118/80
[2022-09-21 05:30] VITALS: BP 110/71
[2022-09-21 06:12] LABS: BASO % 0.6 % (0.0-1.0); EOS # 0.2 10^3/uL (0.0-0.5); EOS % 3.2 % (0.0-3.0); HEMOGLOBIN 11.7 g/dl (12.0-15.5); LYMPH # 3.2 10^3/uL (1.5-5.0); LYMPH % 46.9 % (24.0-44.0); MEAN CORPUSCULAR HGB CONC 31.6 g/dl (32.0-36.5); MEAN CORPUSCULAR VOLUME 91.8 fl (80.0-96.0); MONO # 0.6 10^3/uL (0.0-0.8); MONO % 8.9 % (2.0-8.0); NEUTROPHILS # 2.8 10^3/uL (1.5-8.5); NEUTROPHILS % 39.8 % (36.0-66.0); PLATELET COUNT, AUTOMATED 244 10^3/uL (150-450); RED BLOOD COUNT 4.03 10^6/uL (4.00-5.40); WHITE BLOOD COUNT 6.9 10^3/uL (4.0-10.0)
[2022-09-21] MEDS: SERTRALINE 100 MG TAB PO SCH (08:50)
[2022-09-21] MEDS: PANTOPRAZOLE 40MG TAB (PROTONIX) PO SCH (08:50)
[2022-09-21] MEDS: BANZEL 400 MG PO SCH ×2 (08:51→21:45)
[2022-09-21 14:42] VITALS: BP 118/80
[2022-09-21] MEDS: JAIMIESS PO SCH (21:46)
[2022-09-22 06:37] VITALS: BP 109/66
[2022-09-22] MEDS: SERTRALINE 100 MG TAB PO SCH (10:08)
[2022-09-22] MEDS: BANZEL 400 MG PO SCH ×2 (10:08→21:27)
[2022-09-22] MEDS: PANTOPRAZOLE 40MG TAB (PROTONIX) PO SCH (10:08)
[2022-09-22 15:35] VITALS: BP 135/95
[2022-09-22] MEDS: JAIMIESS PO SCH (21:28)
[2022-09-23 06:33] VITALS: BP 104/66
[2022-09-23] MEDS: SERTRALINE 100 MG TAB PO SCH (09:37)
[2022-09-23] MEDS: PANTOPRAZOLE 40MG TAB (PROTONIX) PO SCH (09:37)
[2022-09-23] MEDS: BANZEL 400 MG PO SCH ×2 (09:38→20:21)
[2022-09-23] MEDS: JAIMIESS PO SCH (20:20)
[2022-09-24 06:00] VITALS: BP 101/65
[2022-09-24] MEDS: PANTOPRAZOLE 40MG TAB (PROTONIX) PO SCH (10:16)
[2022-09-24] MEDS: SERTRALINE 100 MG TAB PO SCH (10:16)
[2022-09-24] MEDS: BANZEL 400 MG PO SCH ×2 (10:16→20:14)
[2022-09-24] MEDS: JAIMIESS PO SCH (20:15)
[2022-09-25 06:00] VITALS: BP 101/63
[2022-09-25] MEDS: SERTRALINE 100 MG TAB PO SCH (10:10)
[2022-09-25] MEDS: BANZEL 400 MG PO SCH ×2 (10:10→20:12)
[2022-09-25] MEDS: PANTOPRAZOLE 40MG TAB (PROTONIX) PO SCH (10:11)
[2022-09-25] MEDS: JAIMIESS PO SCH (20:12)
[2022-09-26 04:00] VITALS: BP 98/57
[2022-09-26] MEDS: PANTOPRAZOLE 40MG TAB (PROTONIX) PO SCH (09:57)
[2022-09-26] MEDS: BANZEL 400 MG PO SCH ×2 (09:58→20:53)
[2022-09-26] MEDS: SERTRALINE 100 MG TAB PO SCH (09:58)
[2022-09-26] MEDS: JAIMIESS PO SCH (20:53)
[2022-09-27 06:00] VITALS: BP 98/58
[2022-09-27] MEDS: PANTOPRAZOLE 40MG TAB (PROTONIX) PO SCH (09:23)
[2022-09-27] MEDS: SERTRALINE 100 MG TAB PO SCH (09:23)
[2022-09-27] MEDS: BANZEL 400 MG PO SCH ×2 (09:24→20:40)
[2022-09-27] MEDS: JAIMIESS PO SCH (20:40)
[2022-09-28 06:00] VITALS: BP_SYST 85; BP_SYST 88; BP_DIAS 56; BP_DIAS 57
[2022-09-28 06:29] LABS: BASO # 0.1 10^3/uL (0.0-0.2); BASO % 0.7 % (0.0-1.0); EOS # 0.2 10^3/uL (0.0-0.5); EOS % 3.1 % (0.0-3.0); HEMATOCRIT 36.2 % (36.0-47.0); HEMOGLOBIN 11.5 g/dl (12.0-15.5); LYMPH # 3.4 10^3/uL (1.5-5.0); LYMPH % 48.1 % (24.0-44.0); MEAN CORPUSCULAR HEMOGLOBIN 28.8 pg (27.0-33.0); MEAN CORPUSCULAR HGB CONC 31.8 g/dl (32.0-36.5); MEAN CORPUSCULAR VOLUME 90.7 fl (80.0-96.0); MONO # 0.6 10^3/uL (0.0-0.8); NEUTROPHILS # 2.8 10^3/uL (1.5-8.5); NEUTROPHILS % 39.8 % (36.0-66.0); PLATELET COUNT, AUTOMATED 256 10^3/uL (150-450); RED BLOOD COUNT 3.99 10^6/uL (4.00-5.40)
[2022-09-28] MEDS: SERTRALINE 100 MG TAB PO SCH (10:12)
[2022-09-28] MEDS: PANTOPRAZOLE 40MG TAB (PROTONIX) PO SCH (10:12)
[2022-09-28] MEDS: BANZEL 400 MG PO SCH ×2 (10:13→20:26)
[2022-09-28 14:54] VITALS: BP 132/81
[2022-09-28] MEDS: JAIMIESS PO SCH (20:26)
[2022-09-29 06:00] VITALS: BP 94/60
[2022-09-29] MEDS: BANZEL 400 MG PO SCH ×2 (10:13→21:31)
[2022-09-29] MEDS: SERTRALINE 100 MG TAB PO SCH (10:13)
[2022-09-29] MEDS: PANTOPRAZOLE 40MG TAB (PROTONIX) PO SCH (10:13)
[2022-09-29] MEDS: JAIMIESS PO SCH (21:32)
[2022-09-30 05:41] VITALS: BP 107/71
[2022-09-30] MEDS: PANTOPRAZOLE 40MG TAB (PROTONIX) PO SCH (10:27)
[2022-09-30] MEDS: SERTRALINE 100 MG TAB PO SCH (10:27)
[2022-09-30] MEDS: BANZEL 400 MG PO SCH ×2 (10:28→20:49)
[2022-09-30] MEDS: ACETAMINOPHEN TAB 650MG DOSE (2X325MG) PO PRN (17:46)
[2022-09-30] MEDS: JAIMIESS PO SCH (20:50)
[2022-10-01 05:30] VITALS: BP 106/70
[2022-10-01] MEDS: PANTOPRAZOLE 40MG TAB (PROTONIX) PO SCH (10:09)
[2022-10-01] MEDS: BANZEL 400 MG PO SCH ×2 (10:10→20:19)
[2022-10-01] MEDS: SERTRALINE 100 MG TAB PO SCH (10:14)
[2022-10-01] MEDS: JAIMIESS PO SCH (20:19)
[2022-10-02 06:00] VITALS: BP 105/74
[2022-10-02] MEDS: SERTRALINE 100 MG TAB PO SCH (10:29)
[2022-10-02] MEDS: PANTOPRAZOLE 40MG TAB (PROTONIX) PO SCH (10:29)
[2022-10-02] MEDS: BANZEL 400 MG PO SCH ×2 (10:30→20:09)
[2022-10-02] MEDS: JAIMIESS PO SCH (20:10)
[2022-10-03 06:00] VITALS: BP 113/70
[2022-10-03] MEDS: SERTRALINE 100 MG TAB PO SCH (10:14)
[2022-10-03] MEDS: PANTOPRAZOLE 40MG TAB (PROTONIX) PO SCH (10:14)
[2022-10-03] MEDS: BANZEL 400 MG PO SCH ×2 (10:15→21:15)
[2022-10-03] MEDS ORDERED: GUAI20TA PO (15:06)
[2022-10-03] MEDS ORDERED: CLOZ25TA6 PO ×3 (15:06→15:32)
[2022-10-03] MEDS ORDERED: PANT40TA29 PO (15:06)
[2022-10-03] MEDS ORDERED: ONDA4TAB6 PO (15:06)
[2022-10-03] MEDS ORDERED: ACET1TAB55 PO (15:06)
[2022-10-03] MEDS ORDERED: LORA2TA PO (15:06)
[2022-10-03] MEDS ORDERED: MOM30SS2 PO (15:06)
[2022-10-03] MEDS ORDERED: BISA10SU PR (15:06)
[2022-10-03] MEDS ORDERED: BANZ400T PO (15:13)
[2022-10-03] MEDS ORDERED: ZOLO100T PO (15:13)
[2022-10-03] MEDS ORDERED: CLOZ25TA24 PO (15:13)
[2022-10-03] MEDS ORDERED: RUFI400T PO (15:13)
[2022-10-03] MEDS ORDERED: CLOZ25TA2 PO (15:13)
[2022-10-03] MEDS ORDERED: CLOZ50TA4 PO (15:32)
[2022-10-03] MEDS: JAIMIESS PO SCH (21:15)
[2022-10-04 06:00] VITALS: BP 109/68
[2022-10-04] MEDS: PANTOPRAZOLE 40MG TAB (PROTONIX) PO SCH (09:55)
[2022-10-04] MEDS: SERTRALINE 100 MG TAB PO SCH (09:55)
[2022-10-04] MEDS: BANZEL 400 MG PO SCH (09:55)
[2022-10-04] MEDS ORDERED: ZOLO100T PO (13:30)
[2022-10-04] MEDS ORDERED: AMET1TAB4 PO (13:30)
[2022-10-04] MEDS ORDERED: CLOB20TA13 PO (13:48)
[2022-10-04] MEDS ORDERED: CLOB10TA15 PO (13:48)
[2022-10-04] MEDS ORDERED: FREEMIS42 TOP (15:14)
[2022-10-04] MEDS ORDERED: NOVO32MI SC (15:14)
[2022-10-04] MEDS ORDERED: ALCOPAD25 TOP (15:14)
[2022-10-04] MEDS ORDERED: METF-877 PO (15:14)
[2022-10-04] MEDS ORDERED: BLOOKIT21 XX (15:14)
[2022-10-04] MEDS ORDERED: GLUC1TES2 XX (15:14)
== END 2022-10-04 10:12 | disposition home or self-care (01) | DRG 756 ==
LOC: M ED 22:19 → M ED INP 22:20 → OBSVTOIN 04-03 07:33 → ENRESERV 04-05 06:47 → M MSPAV 04-05 09:43
PROVIDERS: ADMIT Internal Medicine; ATTEND General Practice
DX: R45.6 Violent behavior (principal); G40.89 Other seizures; J12.89 Other viral pneumonia; E83.42 Hypomagnesemia; Z78.1 Physical restraint status; F79 Unspecified intellectual disabilities; R41.89 Other symptoms and signs involving cognitive functions and awareness; F41.9 Anxiety disorder, unspecified; F39 Unspecified mood [affective] disorder; H66.91 Otitis media, unspecified, right ear; H61.21 Impacted cerumen, right ear; F63.9 Impulse disorder, unspecified; F90.9 Attention-deficit hyperactivity disorder, unspecified type; F42.9 Obsessive-compulsive disorder, unspecified; F91.3 Oppositional defiant disorder; E66.9 Obesity, unspecified; B97.29 Other coronavirus as the cause of diseases classified elsewhere; F60.2 Antisocial personality disorder; J20.9 Acute bronchitis, unspecified; K21.9 Gastro-esophageal reflux disease without esophagitis; R94.31 Abnormal electrocardiogram [ECG] [EKG]; R00.0 Tachycardia, unspecified; Z63.8 Other specified problems related to primary support group; Z74.3 Need for continuous supervision; Z74.2 Need for assistance at home and no other household member able to render care; Z59.00 Homelessness unspecified; Z79.899 Other long term (current) drug therapy; Z68.31 Body mass index [BMI] 31.0-31.9, adult